=== PATIENT | male | born 1980 | race Caucasian/White ===

== ENCOUNTER → 2018-12-27 | Outpatient (CLI) | payer OTHER, SELFPAY ==
[2016-03-13 07:31] VITALS: BMI 28.5
--- NOTE | 2018-12-27 14:50 | RAD_ITS ---
STUDY: X-RAY - RIGHT HAND, ATTENTION INDEX FINGER REASON FOR EXAM: Male, 38 years old. Crush injury. TECHNIQUE: 3 view(s) of the finger were obtained. COMPARISON: None. FINDINGS: Normal metacarpal head. Normal metacarpophalangeal joint. Normal proximal phalanx. Normal middle phalanx. Normal distal phalanx. Normal proximal interphalangeal joint. Normal distal interphalangeal joint. Soft tissue injury. RAD/Finger(s) Min 2 Views IMPRESSION: Soft tissue injury. Electronically Signed: Yoshi Baez, at 15:20 EDT , Service support ,
== END | disposition home or self-care (01) ==
LOC: HPRAD 14:48
PROVIDERS: Referring Provider Physician Assistant; Visit Provider Physician Assistant
DX: S69.91XA Unspecified injury of right wrist, hand and finger(s), initial encounter (principal)
CPT/HCPCS: 73140

== ENCOUNTER → 2020-02-03 | Outpatient (CLI) | payer OTHER, SELFPAY ==
--- NOTE | 2020-02-03 06:45 | MRI_ITS ---
STUDY: MRI RIGHT ANKLE WITHOUT CONTRAST REASON FOR EXAM: Male, 39 years old. RIGHT ankle sprain, injury. Pain of entire RIGHT ankle abdi. anterior to medial TECHNIQUE: Standardized fat and water weighted pulse sequences were obtained in all 3 orthogonal planes. COMPARISON: None. FINDINGS: Normal subcutis adipose space. Normal posterior tibialis tendon. Nondisplaced fracture of the medial aspect of the navicular bone at the insertion of the posterior tibialis tendon with surrounding contusion. Normal flexor digitorum longus tendon. Normal flexor hallucis longus tendon. Normal peroneus longus and brevis tendons. Normal tibialis anterior tendon. Normal extensor hallucis longus tendon. Normal extensor digitorum longus tendons. Normal Achilles tendon and teno-osseous insertion. Normal plantar fascia. Normal plantar calcaneal tubercles. Normal intrinsic muscles of the rearfoot. Normal distal tibiofibular syndesmotic ligamentous complex. There is a complete rupture of the anterior talofibular ligament (ATFL). Normal subtalar ligaments and sinus tarsi. Normal deltoid ligamentous complexes. Normal plantar calcaneonavicular (spring) ligament. Normal tibiotalar articulation. Normal talar dome. Normal subtalar articulations. Normal talonavicular articulation. Normal calcaneocuboid articulation. Normal navicular-cuneiform articulations. Mild contusions of the lateral malleolus the fibula, the posterior malleolus the tibia, the body of the talus in the anterior process of the calcaneus. MRI/Lower Ext Joint Only (Routine) IMPRESSION: 1. Tear of the anterior talofibular ligament. 2. Nondisplaced fracture and surrounding contusion of the medial aspect of the navicular bone at the insertion of the posterior tibialis tendon. 3. Mild contusions of the lateral malleolus the fibula, posterior malleolus the tibia, the body of the talus, in the anterior process of the calcaneus. Electronically Signed: Mati Mccall MD at 12:45 EDT Tel , Service support ,
== END | disposition home or self-care (01) ==
PROVIDERS: PCP Nurse Practitioner Family; Referring Provider Registered Nurse; Visit Provider Registered Nurse
DX: S93.491D Sprain of other ligament of right ankle, subsequent encounter (principal)
CPT/HCPCS: 73721

== ENCOUNTER → 2023-02-16 | Outpatient (CLI) | payer OTHER, SELFPAY ==
--- NOTE | 2023-02-16 07:36 | MRI_ITS ---
INDICATION: SOFT TISSUE MASS, BACK EXAMINATION: MRI - MR Chest WO/W Contrast TECHNIQUE: Multiplanar and multisequence MR images of the chest were obtained. IV Contrast Dosage and Agent: CLARISCAN 19ML IV COMPARISON: No relevant prior comparison study available FINDINGS: Deep to the left serratus muscle and medial to the trapezius along the left posterolateral chest wall there is a fat density mass with thin internal septations. This measures 8.8 x 3.7 x 12 cm. There is no associated enhancing component. There is no adjacent abnormality of the ribs. No bone marrow signal abnormality. The visualized lungs are grossly clear. Normal heart size. The visualized upper abdominal structures show no acute abnormality. Normal signal of the liver. Normal size spleen. No hydronephrosis. 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 There are thin septations without enhancing nodular component. Given the size of the lesion, consider continued surveillance if this is not intervened upon.. Electronically Signed: Anup Puckett MD at 1:00 EDT ,
[2023-02-16 08:02] LABS: CREATININE FINGERSTICK < 0.9 mg/dL (0.70-1.30); EGFR FINGERSTICK > 60.0000 mL/min (>60)
== END | disposition home or self-care (01) ==
PROVIDERS: PCP Nurse Practitioner Family; Referring Provider Family Medicine; Visit Provider Family Medicine
DX: R22.2 Localized swelling, mass and lump, trunk (principal)
CPT/HCPCS: 71552; A9575

== ENCOUNTER 2025-03-10 06:13 | Day surgery (SDC) | payer BC, SELFPAY ==
[2025-03-10] VITALS (8 sets, daily range): BP systolic 89–148; BP diastolic 64–83; PULSE 53–63; RESP 14–16; TEMP 36.1–36.2; O2SAT 96–98; BMI 27.3
--- OUTSIDE RECORDS SUMMARY | 2025-03-10 06:17 | XMS RPT_ITS | CCD ---
Author Organization [facility] Care Team Providers Care Dental Appliance Mechanic Name Role Phone Jordan HARDWOOD FLOOR INSTALLATION HELPER.WEATHERIZATION AND HOUSING INSPECTOR, Ajay PERSAUD Primary Care Provider Caty Vanegas MD Primary Care Provider CATY VANEGAS Primary Care Unavailab AJAY Chisholm Referring Unavailable AJAY DAMON Attending Unavailable AJAY DAMON Admitting Unavailable CATY VANEGAS Primary Care UnavailCaty Willson MD Primary Care Provider Podlogar HARDWOOD FLOOR INSTALLATION HELPER.Arline ESQUIVEL Unavailable Knoble HARDWOOD FLOOR INSTALLATION HELPER.Shari ESQUIVEL Unavailable PODLOGAR, ARLINE Attending Unavailable CATY VANEGAS Primary Care Unavailab VirkLOGARLINE JACOBSON Referring Unavailable CATY VANEGAS Primary Care Unavailab jorden PALACIOSLOGARLINE JACOBSON Attending Unavailable CATY VANEGAS Primary Care Unavailab Yu Mcgarry Attending Unavailable Ajay Ortega NP Referring Unavailable Damián Olsen Primary Care Unavaila ble Ajay Ortega NP Referring Unavailable Ajay Ortega NP Primary Care Unavailable Yu Wong Attending Unavailable Kimo Mathews Attending Unavailable Damián Vanegas Primary Care Unavailable Yu Wong Attending Unavailable Damián Vanegas Primary Care Unavailable Yu Wong Referring Unavailable Allergies Allergy Classification Reported Allergen(s) Allergy Type Date of Onset Reaction(s) Facility (20 sources) gadoterate meglumine; Translations: [GADOTERATE MEGLUMINE] Drug Allergy 5 [facility] (4 sources) Penicillins Propensity to adverse reactions 8 [facility] Work Phone: (1 source) Penicillins Allergy to substance 9 Unknown [facility] (1 source) Triiodobenzoic Acids Allergy to substance 9 Other [facility] (1 source) Penicillins Drug allergy (disorder) 5 [facility] Repository (1 source) Iodinated Contrast Media Drug allergy (disorder) 5 [facility] Repository Medications Current Medications Medication Drug Class(es) Dates Sig (Normalized) Sig (Original) azithromycin 250 mg oral tablet (3 sources) Macrolide Antimicrobial Start: 11-06-2023 End: 11-11-2023 take 2 tablets by mouth once daily, then take 1 tablet by mouth once daily azithromycin (ZITHROMAX) 250 mg tablet Indications: Bacterial pneumonia Take 2 tablets by mouth once daily for 1 day, THEN 1 tablet once daily for 4 days. 6 tablet 0 11/06/2023 11/11/2023 Active Start: 03-13-2016 take 250 mg by mouth once daily Azithromycin Active 250 MG PO DAILY March 13, 2016 1:00am iv contrast (will be provided with radiology test) (1 source) Start: 02-13-2023 End: 02-14-2023 iv contrast (will be provided with radiology test) Indications: Mass on back , Localized swelling, mass and lump, trunk MRI chest wall Lt Inj, intravenously, once for 1 dose. No IV access, insert saline lock prior to the beginning of sedation, infusion, injection of imaging exam. Discontinue saline lock post exam. If Pt. has a central line or IVAD, may access for administration according to line specific nursing protocol. Once exam is complete flush line and de-access according to line specific nursing protocol in the MR contrast administration guidelines link. 1 Each 0 02/13/2023 02/14/2023 Active Comment on above: MRI chest wall Lt In j, intravenously, once for 1 dose. No IV access, insert saline lock prior to the beginning of sedation, infusion, injection of imaging exam. Discontinue saline lock post exam. If Pt. has a central line or IVAD, may access for administration according to line specific nursing protocol. Once exam is complete flush line and de-access according to line specific nursing protocol in the MR contrast administration guidelines link. Completed/Discontinued Medications Medication Drug Class(es) Dates Sig (Normalized) Sig (Original) amoxicillin 50 mg/ml oral suspension (1 source) Penicillin-class Antibacterial Start: 05-21-2022 End: 05-21-2022 amoxicillin 250 mg oral liquid (AMOXIL) Start: 05-21-2022 End: 05-21-2022 amoxicillin 250 mg oral liqu id (AMOXIL) atorvastatin 80 mg oral tablet (8 sources) HMG-CoA Reductase Inhibitor Start: 03-23-2022 End: 04-27-2023 take 1 tablet by mouth once daily at bedtime for hyperlipidemia atorvastatin (LIPITOR) 80 mg tablet Take 1 tablet by mouth daily at bedtime. For cholesterol. 90 tablet 1 03/23/2022 04/27/2023 Discontinued (Course of therapy completed) Comment on above: Take 1 tablet by sury th daily at bedtime. For cholesterol. cyclobenzaprine hydrochloride 10 mg oral tablet (1 source) Muscle Relaxant Start: 04-17-2023 End: 04-27-2023 take 1 tablet by mouth three times daily as needed for muscle spasms cyclobenzaprine (FLEXERIL) 10 mg tablet Indications: Acute midline low back pain with left-sided sciatica Take 1 tablet by mouth three times a day as needed for muscle spasm. 30 tablet 04/17/2023 04/27/2023 Discontinued (Course of therapy completed) diphenhydrAMINE hydrochloride 50 mg oral tablet (5 sources) Histamine-1 Receptor Antagonist Start: 02-13-2023 End: 04-27-2023 take 1 tablet by mouth every hour diphenhydrAMINE HCL 50 mg tablet Indications: Contrast media allergy Take 50 mg oral 1 hour prior to contrast administration. 1 tablet 02/13/2023 04/27/2023 Discontinued (Course of therapy completed) Comment on above: Take 50 mg oral 1 ho ur prior to contrast administration. finasteride 1 mg oral tablet (8 sources) 5-alpha Reductase Inhibitor Start: 03-15-2022 End: 04-17-2023 take 1 tablet by mouth once daily finasteride (PROPECIA,PROSCAR) 1 mg tablet Take 1 tablet by mouth once daily. 03/15/2022 04/17/2023 Discontinued Comment on above: Take 1 tablet by sury th once daily. hydroCHLOROthiazide 25 mg / lisinopril 20 mg oral tablet (20 sources) Thiazide Diuretic, Angiotensin Converting Enzyme Inhibitor Start: 03-14-2022 End: 02-19-2025 take 1 tablet by mouth once daily in the morning lisinopril-hydroCH LOROthiazide (ZESTORETIC) 20-25 mg per tablet Indications: Essential hypertension Take 1 tablet by mouth every morning. 90 tablet 11/07/2024 11/21/2024 Discontinued Start: 01-22-2021 End: 01-22-2022 take 1 tablet by mouth once daily in the morning lisinopril-hydroCHLOROthiazide (PRINZIDE , ZESTORETIC) 20-25 mg per tablet Indications: Essential hypertension Take 1 tablet by mouth every morning. 90 tablet 3 01/22/2021 01/22/2022 Active Comment on above: Take 1 tablet by sury th every morning. minoxidil oral liquid 1 mg/mL (CPD) (8 sources) Start: 03-15-2022 End: 04-17-2023 take 5 mL by mouth once daily minoxidil oral liquid 1 mg/mL (CPD) Take 5 mL by mouth once daily. 03/15/2022 04/17/2023 Discontinued Start: 03-15-2022 take 5 mL by mouth once daily minoxidil oral liquid 1 mg/mL (CPD) Take 5 mL by mouth once daily. 0 03/15/2022 Active Comment on above: Take 5 mL by mouth o nce daily. predniSONE 10 mg oral tablet (6 sources) Start: 04-17-2023 End: 04-22-2023 predniSONE (DELTASONE) 10 mg tablet Indications: Acute midline low back pain with left-sided sciatica Take 4 tabs daily for 3 days, then 2 tabs daily for 3 days, then 1 tab daily for 3 days with food. 21 tablet 04/17/2023 04/22/2023 Discontinued Start: 02-13-2023 End: 04-17-2023 predniSONE (DELTASONE) 50 mg Indications: Contrast media allergy Take 50 mg at 13, 7, and 1 hour prior to contrast administration. 3 tablet 02/13/2023 04/17/2023 Discontinued Start: 12-15-2021 End: 12-20-2021 take 2 tablets by mouth once daily predniSONE (DELTASONE) 20 mg tablet Take 2 tablets by mouth once daily for 5 days. 10 tablet 0 12/15/2021 12/20/2021 Active Comment on above: Take 2 tablets by [facility] once daily for 5 days. Take 50 mg at 13, 7, and 1 hour prior to contrast administration. Problems Active Problems Problem Classification Problem Date Documented Da te Episodic/Chronic Abdominal pain (3 sources) Left lower quadrant pain; Translations: [LLQ pain] Onset: 01-09-2025 Episodic Allergic reactions (3 sources) Allergy to penicillin; Translations: [Allergy status to penicillin] Episodic Complications of surgical procedures or medical care (1 source) Non dose-related adverse reaction to medication; Translations: [Unspecified adverse effect of drug or medicament, initial encounter] Episodic Disorders of lipid metabolism (20 sources) Dyslipidemia; Translations: [Hyperlipidemia, unspecified] Onset: 04-08-2017 Resolved: 03-15-2022 04-08-2017 Chronic Essential hypertension (20 sources) Essential hypertension; Translations: [Essential (primary) hypertension] Onset: 01-11-2008 Resolved: 12-29-2014 01-22-2021 Chronic Immunizations and screening for infectious disease (2 sources) Needs influenza immunization; Translations: [Encounter for immunization] Episodic Other and unspecified benign neoplasm (1 source) Lipoma (clinical); Translations: [Benign lipomatous neoplasm, unspecified] 03-06-2023 Episodic Other and unspecified benign neoplasm (1 source) Benign lipomatous neoplasm, unspecified; 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] Onset: 05-20-2023 Episodic Other lower respiratory disease (2 sources) Cough; Translations: [Acute cough] 11-06-2023 Episodic Other screening for suspected conditions (not mental disorders or infectious disease) (1 source) Encounter for screening for malignant neoplasm of colon; Translations: [Screening for colon cancer] Onset: 01-09-2025 Episodic Other skin disorders (1 source) Mass of back; Translations: [Localized swelling, mass and lump, trunk] 02-13-2023 Episodic Other skin disorders (1 source) Finding of trunk structure; Translations: [Localized swelling, mass and lump, trunk] 02-13-2023 Episodic Other upper respiratory infections (1 source) Sore throat symptom; Translations: [Acute pharyngitis, unspecified] Episodic Otitis media and related conditions (1 source) Dysfunction of left eustachian tube; Translations: [Unspecified Eustachian tube disorder, left ear] 01-06-2024 Episodic Pneumonia (except that caused by tuberculosis or sexually transmitted disease) (1 source) Bacterial pneumonia; Translations: [Unspecified bacterial pneumonia] 11-06-2023 Episodic Superficial injury; contusion (2 sources) Abrasion of right index finger; Translations: [Abrasion of right index finger, initial encounter] 12-27-2018 Episodic Past or Other Problems Problem Classification Problem Date Documented Da te Episodic/Chronic Contraceptive and procreative management (17 sources) Patient encounter status; Translations: [Encounter for fertility testing] Onset: 06-21-2009 Resolved: 12-29-2014 12-29-2014 Episodic Other and unspecified benign neoplasm (20 sources) Melanocytic nevus of skin ; Translations: [Melanocytic nevi, unspecified] Onset: 03-15-2022 Episodic Other nutritional; endocrine; and metabolic disorders (20 sources) Body mass index 25-29 - overweight; Translations: [Overweight] Onset: 03-15-2022 Episodic Other skin disorders (20 sources) Epidermoid cyst; Translations: [Epidermal cyst] Onset: 01-25-2015 01-25-2015 Episodic Other skin disorders (20 sources) Loss of hair; Translations: [Nonscarring hair loss, unspecified] Onset: 03-15-2022 Episodic Other skin disorders (17 sources) Mass of foot; Translations: [Localized swelling, mass and lump, unspecified lower limb] Onset: 12-29-2014 Resolved: 01-25-2015 01-25-2015 Episodic Spondylosis; intervertebral disc disorders; other back problems (17 sources) Acute low back pain; Translations: [Acute midline low back pain] Onset: 04-27-2023 04-27-2023 Episodic Results Test Name Value Interpretation Reference Range Facility [facility] 02-14-2025 [facility] Telephone (FAMChristopherWS) GLENN LINK ([id number]) 1980 M Date Time Provider Department 02/14/25 ARLINE JAY During your visit today, we recorded the following information about you: Arline Jay APRN.SIERRA 02/14/2025 12:00 PM Signed Please fax office note from 01/09/2025 to [phone]. Please put on fax header this is for request to review denial for gastroenterology consult. His reference number is [id number]- they ask this be placed on the request as well. Arline Jay APRN.PATITO HOFFMANN 02/14/2025 1:34 PM Signed Information faxed at this time as requested. Patito Serna LPN Allergies As of Date: 02/14/2025 Noted Allergy Reaction DOTAREM (GADOTERATE MEGLUMINE) 12/15/2014 4 - Hives Comments: Mri contrast Date Reviewed: 01/09/2025 Reviewed by: Radha Walker LPN - Fully Assessed Reason for Visit: consult denial [Other] Cmt: Gastroenterology review Prescriptions as of 02/20/2025 - lisinopril-hydroCHLOR Othiazide (ZESTORETIC) 20-25 mg per tablet Take 1 tablet by mouth every morning. Problem List As Of Date 02/14/2025 Noted Resolved BENIGN HYPERTENSION [I10] 01/11/2008 12/29/2014 Fertility testing [Z31.41] 06/21/2009 12/29/2014 Foot mass [R22.40] 12/29/2014 01/25/2015 Epidermoid cyst [L72.0] 01/25/2015 Well adult exam [Z00.00] 04/08/2017 03/15/2022 Dyslipidemia [E78.5] 04/08/2017 03/15/2022 Essential hypertension [I10] Mixed hyperlipidemia [E78.2] 01/22/2021 Overweight (BMI 25.0-29.9) [E66.3] 03/15/2022 Numerous skin moles [D22.9] 03/15/2022 Hair loss [L65.9] 03/15/2022 Acute midline low back pain [M54.50] 04/27/2023 Encounter Status:Closed by CARRIE STRANGE on 02/20/25 [facility] 02-14-2025 Gastroenterology Visit Report [facility] [address] [place] [address] OFFICE VISIT Date of Service: 02/14/25 MR#: [id number] Acct: [id number] Name: GLENN LINK III Rep #: [id number] : 1980 Provider: VINICIO Mendoza Age/Sex: 44/M [place] [facility] [place]: S[place] Intake Vital Signs 12/27/18 15:28 Height 6 ft Intake Visit Reasons: abdomen pain Chief Complaint: Left lower quadrant pain Allergies Iodinated Contrast Media (DYEE) Allergy (Verified 02/14/25 14:05) Other Penicillins Allergy (Verified 02/14/25 14:05) Unknown Medications ???Medication ???Instructions ???Recorded ???Confirmed ???Type azithromycin 250 mg tablet 250 mg PO DAILY #4 TABLETS 6 Rx lisinopril 20 1 tab PO QDAY 02/14/25 02/14/25 Hi story mg-hydrochlorothiazid e 25 mg tablet PFSH Medical History Seasonal allergic conjunctivitis Mixed hyperlipidemia HTN (hypertension) LLQ abdominal pain Hair loss Family History Other Heart disease Social History Smoking Status: Former smoker quit date: 04/20/08 alcohol intake: current alcohol intake frequency: a few times a week Alcohol type: beer HPI HPI Chief Complaint: Left lower quadrant pain Details: GLENN LINK, is a 44 M who presents to the office today for establishment. Referred from primary care provider due to a dull burning left lower quadrant pain for 2 months. Pain is constant and will wake him up at night. Exacerbated by lifting his leg. It is not related to oral intake or when he needs to have a bowel movement. He denies any recent changes in his bowel habits. He has 1 bowel movement daily that is formed. Patient takes Metamucil daily. He denies blood in his stool or unintentional weight loss. No family history of colon cancer. No history of colonoscopy. He feels it may be musculoskeletal or a hernia. Ibuprofen and acetaminophen have helped in the past. ROS Const Constitutional: No fatigue, fever(s) or weight change ENT ENT: No difficulty swallowing Gastro GI: Positive for abdominal pain; No belching, bloating, change in bowel habits, change in stool character, coffee ground emesis, constipation, cramping, diarrhea, heartburn, difficulty swallowing, feeling full early, excessive flatus, incontinent of stools, Vomiting blood/hematemesis, Blood in stool, loose stools, Black,tarry stools, nausea/dyspepsia, pain with swallowing, vomiting or other Musc Musculoskeletal: No joint pain Skin Skin: No yellowing of the eye or itchy eyes Psych Psychiatric: No anxiety and No depression Endo Endocrine: No fatigue or weight change Aller/Imm Allergy/Immunologic: No itchy eyes Willem/Lymp Hematologic/Lymphatic : No easy bleeding or easy bruising Exam Const General: cooperative, healthy appearing and comfortable Nutritional Appearance: average body habitus Orientation: alert HENMT Head: normal to inspection Ears: hearing grossly normal bilaterally Eyes General: appearance normal, both eyes and all related structures Neck Neck: normal visual inspection Chest Chest palpation inspection: normal inspection of the chest GI Inspection: normal to inspection Auscultation: normal bowel sounds Palpation: soft and nontender Assessment and Plan Assessment and Plan (1) LLQ abdominal pain: Status: Acute Plan: José Antonio is a 44-year-old male patient with past medical history of hypertension and hyperlipidemia here today for evaluation of left lower quadrant abdominal pain over the past 2 months. Pain is unrelated to oral intake or bowel movements. Some alleviation in his symptoms with NSAIDs or acetaminophen. Sitting or certain movements may exacerbate his pain. He denies any changes in his bowel habits, unintentional weight loss, blood in his stool or fever. He has no family history of colon cancer. Patient will undergo colonoscopy for evaluation of his left lower quadrant pain and for screening. I have also ordered a CT abdomen pelvis to rule out inflammation in his colon and/or a hernia. - Colonoscopy - CT abdomen pelvis - Continue fiber - Follow-up after testing Note: [employer] speech recognition nail professional software was used to create portions of this document. Sound-alike and misspelled words, as well as other nail professional errors may be contained in the documentation. Orders: Orders Abdomen/Pelvis WITH Contrast Today R10.32 - Left lower quadrant pain Coding Level of Care Code Off vis,new,level 4 Diagnoses LLQ abdominal pain R10.32 02/14/25 1459 Date Yu George Signature: Date (more content not included)... [facility] (FAMPWS ) GLENN LINK ([id number]) 1980 M Date Time Provider Department 01/09/25 10:40 AM ARLINE JAY During your visit today, we recorded the following information about you: Temperature Pulse Blood pressure Weight 97.7 degrees 67/minute 128/86 90.9 kg Arline Jay APRN.WEATHERIZATION AND HOUSING INSPECTOR 02/14/2025 11:58 AM Addendum 01/09/2025 Patient presents with: Abdominal Pain: Left lower x few weeks Recording using [employer] software for draft documentation of the visit was discussed with the patient/authorized fulfillment representative; all questions welcomed and answered. Patient/authorized fulfillment representative agreed to proceed SUBJECTIVE: This is a 44 year old that is here today for Above Complaints. LLQ Abdominal Pain: - Andrei Link reports a dull, burning pain in the LLQ x3 weeks. - Initially thought to be muscular, but now uncertain. - Pain is constant and slowly worsening; wakes him up at night. - Aggravated by lifting the leg, causing a sensation of tightness. - Andrei denies relief from stretching. - Andrei denies known trauma or injury. - Andrei denies hematochezia, melena, nausea, emesis, fevers, or chills. - Andrei denies changes in bowel habits, constipation, diarrhea, or abnormal weight loss. - Andrei denies dysuria. - Andrei has not undergone a colonoscopy. PAST MEDICAL HISTORY Diagnosis Date Hair loss Hypertension Mixed hyperlipidemia 01/22/[address] Natalie Chicas Overweight (BMI 25.0-29.9) Seasonal allergies spring ALLERGIES Dotarem [Gadoterate Meglumine] MEDICATIONS Current Outpatient Medications Medication Sig lisinopril-hydroCHLOR Othiazide (ZESTORETIC) 20-25 mg per tablet Take 1 tablet by mouth every morning. No current facility-administered medications for this visit. Medications and allergies reviewed by this provider. SOCIAL HISTORY SOCIAL HISTORY[1] REVIEW OF SYSTEMS All other reviewed and negative other than HPI. OBJECTIVE: BP 128/86 Pulse 67 Temp 36.5 ?C (97.7 ?F) Wt 90.9 kg (200 lb 6.4 oz) SpO2 96% BMI 27.69 kg/m? . Vital signs reviewed by this provider. APPEARANCE Well appearing, alert, in no acute distress, well-hydrated, well nourished. EYES conjunctiva and sclera normal. HEART RRR with normal S1 and S2, no murmurs, no gallops, no JVD appreciated LUNG clear to auscultation. No wheezes, rhonchi or rales ABDOMEN bowel sounds normoactive, no bruits, soft, non-tender, non-distended, without organomegaly or palpable masses, no tenderness to palpation. No rebound tenderness or guarding SKIN Skin color, texture, turgor normal, no suspicious rashes or lesions to exposed skin to exposed skin Depression Screening Never done Anxiety Screening Never done Hepatitis B Vaccine(1 of 3 - 19+ 3-dose series) Never done HPV Vaccine(1 - 3-dose SCDM series) Never done Influenza Vaccine(1) due on 12/19/2024 Colorectal Cancer Screening due on 12/22/2024 Annual PCP Team Chronic Disease Visit due on 06/06/2025 Diabetes Screening due on 06/07/2027 Lipid Screening due on 06/07/2029 DTaP,Tdap,Td Vaccine(9 - Td or Tdap) due on 03/15/2032 Hepatitis C Screening Completed HIV Screening Discontinued 1. LLQ pain (R10.32) 2. Screening for colon cancer (Z12.11) - Persistent LLQ pain for 3 weeks without red flag symptoms; exam non-tender. - Differential includes muscular etiology, diverticulosis, or other GI pathology; less likely to be diverticulitis given absence of acute symptoms. - Discussed rationale for not pursuing CT at this time due to benign exam and lack of concerning features. - refer to GI as he is due for his screening colonoscopy and the fact he is having LLQ pain- he would not be a candidate for open access colonoscopy due to complaints of pain - Advised patient to seek emergent care if symptoms worsen or if fevers, chills, hematochezia, or melena develop. Arline Podlogar, HARDWOOD FLOOR INSTALLATION HELPER.WEATHERIZATION AND HOUSING INSPECTOR Prescription instructions reviewed with patient as applicable. Patient advised if symptoms do not improve or if symptoms worsen sooner, to contact their primary care physician. Potential red flag symptoms discussed with the patient. Reviewed appropriate action plan to take if red flag symptoms occur. Patient agreeable to treatment plan. [address]120 OVERALL COMPLEXITY Problem Complexity: Moderate Data Level: Straightforward Risk Level: Low Overall MDM complexity (2/3 must be met or exceeded): Low PROBLEMS SECTION: 1. LLQ pain - Undiagnosed new problem with uncertain prognosis 2. Screening for colon cancer - Not applicable One undiagnosed new problem with uncertain prognosis (Moderate complexity) Problem complexity level: Moderate DATA SECTION: - Review of prior external note(s) from each unique source: - Review of the result(s) of each unique test: - Ordering of each unique test: - Assessment requiring an independent (more content not included)... Normal [facility] CBC W Auto Differential pane l (Bld)on 06-07-2024 Basophils (Bld) [#/Vol] 0.03 10*3/uL Normal <0.11 [facility] Comment on above: Order Comment: Froilan posey Type: BLOOD SPECIMEN Ordering Facility: [facility] Address: [address] [place] [address] Performed By: #### 5 7021-8 #### [facility] CLIA [id number] [address] [place], [place] [id number] [address] [place] Basophils/100 WBC (Bld) 0.4 % Normal [facility] Comment on above: Order Comment: Froilan posey Type: BLOOD SPECIMEN Ordering Facility: [facility] Address: [address] [place] [address] Performed By: #### 5 7021-8 #### [facility] CLIA [id number] [address] [place] [address] [place] Differential cell count method Nom (Bld) Auto Normal [facility] Comment on above: Order Comment: Speci men Type: BLOOD SPECIMEN Ordering Facility: [facility] Address: [address] [place] [address] Performed By: #### 5 7021-8 #### [facility] CLIA [id number] [address] [place] [address] [place] Eosinophils (Bld) [#/Vol] 0.14 10*3/uL Normal <0.46 [facility] Comment on above: Order Comment: Speci men Type: BLOOD SPECIMEN Ordering Facility: [facility] Address: [address] [place] [address] Performed By: #### 5 [id number] #### [facility] CLIA [id number] [address] [place] [address] [place] Eosinophils/100 WBC (Bld) 1.9 % Normal [facility] Comment on above: Order Comment: Speci men Type: BLOOD SPECIMEN Ordering Facility: [facility] Address: [address] [place] [address] Performed By: #### 5 7021-8 #### [facility] CLIA [id number] [address] [place] [address] [place] Erythrocyte distribution width (RBC) [Ratio] 12.2 % Normal 11.5-15.0 [facility] Comment on above: Order Comment: Speci men Type: BLOOD SPECIMEN Ordering Facility: [facility] Address: [address] [place] [address] Performed By: #### 5 7021-8 #### [facility] CLIA [id number] [address] [place] [address] [place] Hematocrit (Bld) [Volume fraction] 43.5 % Normal 39.0-51.0 [facility] Comment on above: Order Comment: Speci men Type: BLOOD SPECIMEN Ordering Facility: [facility] Address: [address] [place] [address] Performed By: #### 5 7021-8 #### [facility] CLIA [id number] [address] [place] [address] [place] Hemoglobin (Bld) [Mass/Vol] 14.3 g/dL Normal 13.0-17.0 [facility] Comment on above: Order Comment: Speci men Type: BLOOD SPECIMEN Ordering Facility: [facility] Address: [address] [place] [address] Performed By: #### 5 7021-8 #### [facility] CLIA [id number] [address] [place] [address] [place] Immature granulocytes (Bld) [#/Vol] 10*3/uL Normal <0.10 [facility] Comment on above: Order Comment: Speci men Type: BLOOD SPECIMEN Ordering Facility: [facility] Address: [address] [place] [address] Performed By: #### 5 7021-8 #### [facility] CLIA [id number] [address] [place] [address] [place] Immature granulocytes/100 WBC (Bld) 0.1 % Normal [facility] Comment on above: Order Comment: Speci men Type: BLOOD SPECIMEN Ordering Facility: [facility] Address: [address] [place] [address] Performed By: #### 5 7021-8 #### [facility] CLIA [id number] [address] [place] [address] [place] Lymphocytes (Bld) [#/Vol] 2.63 10*3/uL Normal 1.00-4.00 [facility] Comment on above: Order Comment: Speci men Type: BLOOD SPECIMEN Ordering Facility: [facility] Address: [address] [place] [address] Performed By: #### 5 7021-8 #### [facility] CLIA [id number] [address] [place] [address] [place] Lymphocytes/100 WBC (Bld) 35.8 % Normal [facility] Comment on above: Order Comment: Speci men Type: BLOOD SPECIMEN Ordering Facility: [facility] Address: [address] [place] [address] Performed By: #### 5 7021-8 #### [facility] CLIA [id number] [address] [place] [address] [place] MCH (RBC) [Entitic mass] 29.6 pg Normal 26.0-34.0 [facility] Comment on above: Order Comment: Speci men Type: BLOOD SPECIMEN Ordering Facility: [facility] Address: [address] [place] [address] Performed By: #### 5 7021-8 #### [facility] CLIA [id number] [address] [place] [address] [place] MCHC (RBC) [Mass/Vol] 32.9 g/dL Normal 30.5-36.0 [facility] Comment on above: Order Comment: Speci men Type: BLOOD SPECIMEN Ordering Facility: [facility] Address: [address] [place] [address] Performed By: #### 5 7021-8 #### [facility] CLIA [id number] [address] [place] [address] [place] MCV (RBC) [Entitic vol] 90.1 fL Normal 80.0-100.0 [facility] Comment on above: Order Comment: Speci men Type: BLOOD SPECIMEN Ordering Facility: [facility] Address: [address] [place] [address] Performed By: #### 5 7021-8 #### [facility] CLIA [id number] [address] [place] [address] [place] Monocytes (Bld) [#/Vol] 0.53 10*3/uL Normal <0.87 [facility] Comment on above: Order Comment: Speci men Type: BLOOD SPECIMEN Ordering Facility: [facility] Address: [address] [place] [address] Performed By: #### 5 7021-8 #### [facility] CLIA [id number] [address] [place] [address] [place] Monocytes/100 WBC (Bld) 7.2 % Normal [facility] Comment on above: Order Comment: Speci men Type: BLOOD SPECIMEN Ordering Facility: [facility] Address: [address] [place] [address] Performed By: #### 5 7021-8 #### [facility] CLIA [id number] [address] [place] [address] [place] Neutrophils (Bld) [#/Vol] 4.01 10*3/uL Normal 1.45-7.50 [facility] Comment on above: Order Comment: Speci men Type: BLOOD SPECIMEN Ordering Facility: [facility] Address: [address] [place] [address] Performed By: #### 5 7021-8 #### [facility] CLIA [id number] [address] [place] [address] [place] Neutrophils/100 WBC (Bld) 54.6 % Normal [facility] Comment on above: Order Comment: Speci men Type: BLOOD SPECIMEN Ordering Facility: [facility] Address: [address] [place] [address] Performed By: #### 5 7021-8 #### [facility] CLIA [id number] [address] [place] [address] [place] Nucleated RBC (Bld) [#/Vol] 10*3/uL Normal <0.01 [facility] Comment on above: Order Comment: Speci men Type: BLOOD SPECIMEN Ordering Facility: [facility] Address: [address] [place] [address] Performed By: #### 5 7021-8 #### [facility] CLIA [id number] [address] [place] [address] [place] Nucleated RBC/100 WBC (Bld) [Ratio] 0.0 /100 WBC Normal [facility] Comment on above: Order Comment: Speci men Type: BLOOD SPECIMEN Ordering Facility: [facility] Address: [address] [place] [address] Performed By: #### 5 7021-8 #### [facility] CLIA [id number] [address] [place] [address] [place] Platelet mean volume (Bld) [Entitic vol] 11.1 fL Normal 9.0-12.7 [facility] Comment on above: Order Comment: Speci men Type: BLOOD SPECIMEN Ordering Facility: [facility] Address: [address] [place] [address] Performed By: #### 5 7021-8 #### [facility] CLIA [id number] [address] [place] [address] [place] Platelets (Bld) [#/Vol] 310 10*3/uL Normal 150-400 [facility] Comment on above: Order Comment: Speci men Type: BLOOD SPECIMEN Ordering Facility: [facility] Address: [address] [place] [address] Performed By: #### 5 7021-8 #### [facility] CLIA [id number] [address] [place] [address] [place] RBC (Bld) [#/Vol] 4.83 10*6/uL Normal 4.20-6.00 [facility] Comment on above: Order Comment: Speci men Type: BLOOD SPECIMEN Ordering Facility: [facility] Address: [address] [place] [address] Performed By: #### 5 7021-8 #### [facility] CLIA [id number] [address] [place] [address] [place] WBC (Bld) [#/Vol] 7.35 10*3/uL Normal 3.70-11.00 [facility] Comment on above: Order Comment: Speci men Type: BLOOD SPECIMEN Ordering Facility: [facility] Address: [address] [place] [address] Performed By: #### 5 7021-8 #### [facility] CLIA [id number] [address] [place] [address] [place] Comprehensive metabolic 2000 panelon 06-07-2024 Albumin [Mass/Vol] 4.3 g/dL Normal 3.9-4.9 [facility] Comment on above: Order Comment: Speci men Type: BLOOD SPECIMEN Ordering Facility: [facility] Address: [address] [place] [address] Performed By: #### 2 4323-8, 08477-6 #### [facility] CLIA [id number] [address] [place] [address] [place] ALP [Catalytic activity/Vol] 55 U/L Normal 38-113 [facility] Comment on above: Order Comment: Speci men Type: BLOOD SPECIMEN Ordering Facility: [facility] Address: [address] [place] [address] Performed By: #### 2 4323-8, 26099-0 #### [facility] CLIA [id number] [address] [place] [address] [place] ALT [Catalytic activity/Vol] 18 U/L Normal 10-54 [facility] Comment on above: Order Comment: Speci men Type: BLOOD SPECIMEN Ordering Facility: [facility] Address: [address] [place] [address] Performed By: #### 2 4323-8, 77254-8 #### [facility] CLIA [id number] [address] [place] [address] [place] Anion gap [Moles/Vol] 11 mmol/L Normal 8-15 [facility] Comment on above: Order Comment: Speci men Type: BLOOD SPECIMEN Ordering Facility: [facility] Address: [address] [id number] Performed By: #### 2 4323-8, 33466-9 #### [facility] CLIA [id number] [address] [place] [address] [place] AST [Catalytic activity/Vol] 30 U/L Normal 14-40 [facility] Comment on above: Order Comment: Speci men Type: BLOOD SPECIMEN Ordering Facility: [facility] Address: [address] [place] [address] Performed By: #### 2 4323-8, 67275-6 #### [facility] CLIA [id number] [address] [place] [address] [place] Bilirubin [Mass/Vol] 0.3 mg/dL Normal 0.2-1.3 [facility] Comment on above: Order Comment: Speci men Type: BLOOD SPECIMEN Ordering Facility: [facility] Address: [address] [place] [address] Performed By: #### 2 4323-8, 28413-1 #### [facility] CLIA [id number] [address] [place] [address] [place] Calcium [Mass/Vol] 9.4 mg/dL Normal 8.5-10.2 [facility] Comment on above: Order Comment: Speci men Type: BLOOD SPECIMEN Ordering Facility: [facility] Address: [address] [place] [address] Performed By: #### 2 4323-8, 99172-7 #### [facility] CLIA [id number] [address] [place] [address] [place] Chloride [Moles/Vol] 102 mmol/L Normal 98-107 [facility] Comment on above: Order Comment: Speci men Type: BLOOD SPECIMEN Ordering Facility: [facility] Address: [address] [place] [address] Performed By: #### 2 4323-8, 59909-3 #### [facility] CLIA [id number] [address] [place] [address] [place] CO2 [Moles/Vol] 27 mmol/L Normal 22-30 [facility] Comment on above: Order Comment: Speci men Type: BLOOD SPECIMEN Ordering Facility: [facility] Address: [address] [place] [address] Performed By: #### 2 4323-8, 87942-6 #### [facility] CLIA [id number] [address] [place] [address] [place] Creatinine [Mass/Vol] 0.94 mg/dL Normal 0.73-1.22 [facility] Comment on above: Order Comment: Speci men Type: BLOOD SPECIMEN Ordering Facility: [facility] Address: [address] [place] [address] Performed By: #### 2 4323-8, 87105-0 #### [facility] CLIA [id number] [address] [place] [address] [place] Creatinine and Glomerular filtration rate.predicted panel (S/P/Bld) 103 mL/min/1.73m??? Normal >=60 [facility] Comment on above: Order Comment: Speci men Type: BLOOD SPECIMEN Ordering Facility: [facility] Address: [address] [place] [address] Result Comment: Charmaine mated Glomerular Filtration Rate (eGFR) is calculated using the 2020 CKD-EPI creatinine equation. This equation utilizes serum creatinine, sex, and age as parameters. The creatinine assay has traceable calibration to isotope dilution-mass spectrometry. Refer to KDIGO guidelines for clinical interpretation. In patients with unstable renal function, e.g. those with acute kidney injury, the eGFR may not accurately reflect actual GFR. Performed By: #### 2 4323-8, 31431-7 #### [facility] CLIA [id number] [address] [place] [address] [place] Glucose [Mass/Vol] 104 mg/dL High 74-99 [facility] Comment on above: Order Comment: Froilan posey Type: BLOOD SPECIMEN Ordering Facility: [facility] Address: [address] [place] [address] Result Comment: The [place] Diabetes Association (ADA) provides guidance for cutoff values for fasting glucose and random glucose. The ADA defines fasting as no caloric intake for at least 8 hours. Fasting plasma glucose results between 100 to 125 mg/dL indicate increased risk for diabetes (prediabetes). Fasting plasma glucose results greater than or equal to 126 mg/dL meet the criteria for diagnosis of diabetes. In the absence of unequivocal hyperglycemia, results should be confirmed by repeat testing. In a patient with classic symptoms of hyperglycemia or hyperglycemic crisis, random plasma glucose results greater than or equal to 200 mg/dL meet the criteria for diagnosis of diabetes. Reference: Standards of Medical Care in Diabetes 2016, [place] Diabetes Association. Diabetes Care. 2016.39(Suppl 1). Performed By: #### 2 4323-8, 24523-9 #### [facility] CLIA [id number] [address] [place] [address] [place] Potassium [Moles/Vol] 4.1 mmol/L Normal 3.7-5.1 [facility] Comment on above: Order Comment: Froilan posey Type: BLOOD SPECIMEN Ordering Facility: [facility] Address: [address] [place] [address] Performed By: #### 2 4323-8, 03347-6 #### [facility] CLIA [id number] [address] [place] [address] [place] Protein [Mass/Vol] 6.7 g/dL Normal 6.3-8.0 [facility] Comment on above: Order Comment: Froilan posey Type: BLOOD SPECIMEN Ordering Facility: [facility] Address: [address] [place] [address] Performed By: #### 2 4323-8, 02409-4 #### [facility] CLIA [id number] [address] [place] [address] [place] Sodium [Moles/Vol] 140 mmol/L Normal 136-144 [facility] Comment on above: Order Comment: Speci men Type: BLOOD SPECIMEN Ordering Facility: [facility] Address: [address] [place] [address] Performed By: #### 2 4323-8, 75608-7 #### [facility] CLIA [id number] [address] [place] [address] [place] Urea nitrogen [Mass/Vol] 10 mg/dL Normal 9-24 [facility] Comment on above: Order Comment: Speci men Type: BLOOD SPECIMEN Ordering Facility: [facility] Address: [address] [place] [address] Performed By: #### 2 4323-8, 42265-6 #### [facility] CLIA [id number] [address] [place] [address] [place] Lipid 1996 panelon 5 Cholesterol [Mass/Vol] 223 mg/dL High <200 [facility] Comment on above: Order Comment: Speci men Type: BLOOD SPECIMEN Ordering Facility: [facility] Address: [address] [place] [address] Result Comment: <200 mg/dL, Desirable 200-239 mg/dL, Borderline high >239 mg/dL, High Performed By: #### 2 4323-8, 74970-3 #### [facility] CLIA [id number] [address] [place] [address] [place] Cholesterol in HDL [Mass/Vol] 38 mg/dL Low >39 [facility] Comment on above: Order Comment: Speci men Type: BLOOD SPECIMEN Ordering Facility: [facility] Address: [address] [place] [address] Result Comment: 40-5 9 mg/dL, Acceptable >59 mg/dL, High: Negative risk factor for coronary heart disease <40 mg/dL, Low: Positive risk factor for coronary heart disease Performed By: #### 2 4323-8, 76369-3 #### [facility] CLIA [id number] [address] [place], [place] [address] [address] [place] Cholesterol in LDL [Mass/Vol] 150 mg/dL High <100 [facility] Comment on above: Order Comment: Froilan posey Type: BLOOD SPECIMEN Ordering Facility: [facility] Address: [address] [place] [address] Result Comment: <100 mg/dL, Optimal 100-129 mg/dL, Near optimal/above optimal 130-159 mg/dL, Borderline high 160-189 mg/dL, High >189 mg/dL, Very high Secondary prevention optimal LDL Cholesterol levels are recommended to be < 70 mg/dL Performed By: #### 2 4323-8, 98259-2 #### [facility] CLIA [id number] [address] [place] [address] [place] Cholesterol in LDL/Cholesterol in HDL [Mass ratio] 3.95 {ratio} High <2.54 [facility] Comment on above: Order Comment: Froilan posey Type: BLOOD SPECIMEN Ordering Facility: [facility] Address: [address] [place] [address] Result Comment: Referlinda banerjee: 1. National Cholesterol Education Program ATP III Guideline At-A-Glance Quick Desk Reference: National Heart, Lung, and Blood Constable. National Institutes of Health. 2001: NIH Publication No. 01-3305. 2. An International Atherosclerosis Society position paper: global recommendations for the management of dyslipidemia: executive summary, Atherosclerosis. 2014: 232(2):410-413. Performed By: #### 2 4323-8, 97922-8 #### [facility] CLIA [id number] [address] [place] [address] [place] Cholesterol in VLDL [Mass/Vol] 35 mg/dL High <30 [facility] Comment on above: Order Comment: Froilan posey Type: BLOOD SPECIMEN Ordering Facility: [facility] Address: [address] [place] [address] Performed By: #### 2 4323-8, 48157-3 #### [facility] CLIA [id number] [address] [place] [address] [place] Cholesterol non HDL [Mass/Vol] 185 mg/dL High <130 [facility] Comment on above: Order Comment: Speci men Type: BLOOD SPECIMEN Ordering Facility: [facility] Address: [address] [place] [address] Result Comment: <130 mg/dL, Optimal 130-159 mg/dL, Near optimal/above optimal 160-189 mg/dL, Borderline high 190-219 mg/dL, High >219 mg/dL, Very high Secondary prevention optimal non HDL Cholesterol levels are recommended to be <100 mg/dL Performed By: #### 2 4323-8, 18470-6 #### [facility] CLIA [id number] [address] [place] [address] [place] Cholesterol.total/Kendra sterol in HDL [Mass ratio] 5.87 {ratio} High <5.10 [facility] Comment on above: Order Comment: Speci men Type: BLOOD SPECIMEN Ordering Facility: [facility] Address: [address] [place] [address] Performed By: #### 2 4323-8, 84161-0 #### [facility] CLIA [id number] [address] [place] [address] [place] FASTING TIME 12 hrs Normal [facility] Comment on above: Order Comment: Speci men Type: BLOOD SPECIMEN Ordering Facility: [facility] Address: [address] [place] [address] Performed By: #### 2 4323-8, 43480-4 #### [facility] CLIA [id number] [address] [place] [address] [place] Triglyceride [Mass/Vol] 175 mg/dL High <150 [facility] Comment on above: Order Comment: Speci men Type: BLOOD SPECIMEN Ordering Facility: [facility] Address: [address] [place] [address] Result Comment: <150 mg/dL, Normal 150-199 mg/dL, Borderline high 200-499 mg/dL, High >499 mg/dL, Very high Performed By: #### 2 4323-8, 57478-3 #### [facility] CLIA [id number] [address] [place] [address] [place] CNOVon 06-06-2024 CNOV Office Visit (FAMPWS ) GLENN LINK ([id number]) 1980 M Date Time Provider Department 06/06/24 11:40 AM ARLINE JAY During your visit today, we recorded the following information about you: Pulse Respiration Blood pressure Weight 78/minute 16/minute 136/84 93.3 kg Height 1.812 m Arline Jay 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 HTN: Patient is compliant with meds Yes Monitors bp at home: No. Denies side effects: Yes. Chest pain: No. Dyspnea: No. Edema: No. Palpitations: No. Syncope: No. Headache: No. Dizziness: No. PAST MEDICAL HISTORY Diagnosis Date Hair loss Hypertension Mixed hyperlipidemia 01/22/[address] Natalie Chicas Overweight (BMI 25.0-29.9) Seasonal allergies spring ALLERGIES Dotarem [Gadoterate Meglumine] MEDICATIONS Current Outpatient Medications Medication Sig lisinopril-hydroCHLOR Othiazide (ZESTORETIC) 20-25 mg per tablet Take 1 tablet by mouth every morning. No current facility-administered medications for this visit. Medications and allergies reviewed by this provider. SOCIAL HISTORY Social History Tobacco Use Smoking status: Former Current packs/day: 0.00 Average packs/day: 1.5 packs/day for 8.0 years (12.0 ttl pk-yrs) Types: Cigarettes Start date: 04/20/2000 Quit date: 04/20/2008 Years since quittin.1 Smokeless tobacco: Former Types: Chew Quit date: 12/06/2007 Vaping Use Vaping status: Never Used Substance Use Topics Alcohol use: Yes Alcohol/week: 3.0 - 5.0 standard drinks of alcohol Types: 3 - 5 Cans of Beer (12oz) per week Comment: occasionally - 0-5 drinks a week Drug use: No REVIEW OF SYSTEMS GENERAL: No weight loss, malaise or fevers HEENT: Negative for frequent or significant headaches, No changes in hearing or vision, no nose bleeds or other nasal problems NECK: Negative for lumps, goiter, pain and significant neck swelling RESPIRATORY: Negative for cough, hemoptysis, wheezing, COPD, dyspnea or shortness of breath CARDIOVASCULAR: Negative for chest pain, leg swelling, hypertension, CHF or palpitations GI: No nausea, vomiting, or diarrhea : No history of dysuria, frequency or incontinence MUSCULOSKELETAL: Negative for joint pain or swelling, back pain or muscle pain SKIN: Negative for lesions, rash, and itching PSYCH: Negative for sleep disturbance, mood disorder and recent psychosocial stressors HEMATOLOGY/LYMPHOLOGY : Negative for prolonged bleeding, bruising easily or swollen nodes ENDOCRINE: Negative for cold or heat intolerance, polyuria, polydipsia and goiter NEURO: No history of headaches, syncope, paralysis, seizures or tremors All other reviewed and negative other than HPI. OBJECTIVE: BP 136/84 Pulse 78 Resp 16 Ht 181.2 cm (5' 11.34) Wt 93.3 kg (205 lb 11 oz) SpO2 98% BMI 28.42 kg/m? . Vital signs reviewed by this provider. APPEARANCE Well appearing, alert, in no acute distress, well-hydrated, well nourished. EYES PERRLA, conjunctiva and sclera normal. EARS External ears normal, canals clear NECK Supple, no adenopathy; thyroid symmetric, normal size, no bruits HEART RRR with normal S1 and S2, no murmurs, no gallops, no JVD appreciated LUNG clear to auscultation. No wheezes, rhonchi or rales EXTREMITIES Extremities normal, No deformities, No skin discoloration, and No edema SKIN Skin color, texture, turgor normal, no suspicious rashes or lesions to exposed skin Latest Ref Rng 12/07/2023 Protein, Total 6.3 - 8.0 g/dL 7.2 Albumin 3.9 - 4.9 g/dL 4.7 Calcium 8.5 - 10.2 mg/dL 9.7 Bilirubin, Total 0.2 - 1.3 mg/dL 0.4 Alkaline Phosphatase 38 - 113 U/L 49 AST 14 - 40 U/L 33 ALT 10 - 54 U/L 16 Glucose 74 - 99 mg/dL 117 (H) BUN 9 - 24 mg/dL 18 Creatinine 0.73 - 1.22 mg/dL 0.85 Sodium 136 - 144 mmol/L 136 Potassium 3.7 - 5.1 mmol/L 4.3 Chloride 98 - 107 mmol/L 99 CO2 22 - 30 mmol/L 24 Anion Gap 8 - 15 mmol/L 13 eGFR >=60 mL/min/1.73m? 111 Latest Ref Rng 05/12/2023 WBC 3.70 - 11.00 k/uL 7.61 RBC 4.20 - 6.00 m/uL 4.68 Hemoglobin 13.0 - 17.0 g/dL 14.8 Hematocrit 39.0 - 51.0 % 43.4 MCV 80.0 - 100.0 fL 92.7 MCH 26.0 - 34.0 pg 31.6 MCHC 30.5 - 36.0 g/dL 34.1 RDW-CV 11.5 - 15.0 % 12.7 Platelet Count 150 - 400 k/uL 289 MPV 9.0 - 12.7 fL 11.4 Absolute nRBC <0.01 k/uL <0.01 Latest Ref Rng 03/20/2022 Cholesterol, Total <200 mg/dL 288 (H) Triglyceride <150 mg/dL 182 (H) HDL Cholesterol >39 mg/dL 39 (L) Non HDL Cholesterol <130 mg/dL 249 (H) Fasting Time hrs 13 VLDL Cholesterol <30 mg/dL 36 (H) TC:HDL Ratio <5.10 7.38 (H) LDL Cholesterol <100 mg/dL 213 (H) LDL:HDL Ratio <2.54 5.46 (H) Anxiety Screening Never done Hepatitis B Vaccine(1 of 3 - 19+ 3-dose series) Never done BP C (more content not included)... Normal [facility] CNCOon 02-29-2024 CNCO Letter Text Normal [facility] XR Chest PA and Lateralon IMPRESSION: Focal right middle lobe pneumonia. Follow-up to document resolution recommended Supervisor Stripping: BISI Transcribe Date/Time: Nov 06 2023 2:45P Dictated by : MARELY BALL MD This examination was interpreted and the report reviewed and electronically signed by: MARELY BALL MD on Nov 06 2023 2:45PM [facility] DIVISION OF RADIOLOGY * * *Final Report* * * DATE OF EXAM: Nov 06 2023 2:42PM WOX 5291 - XR CHEST 2V FRONTAL/LAT / PROCEDURE REASON: Acute cough * * * * Physician Interpretation * * * * EXAMINATION: CHEST RADIOGRAPH (2 VIEW FRONTAL & LATERAL) CLINICAL HISTORY: Acute cough MQ: XC2_6 EXAM DATE/TIME: 11/06/2023 2:42 PM COMPARISON: 04/01/2019 RESULT: Lines, tubes, and devices: None. Lungs and pleura: New right middle lobe airspace disease is consistent with focal pneumonia. No lung mass. No pleural effusion. No pneumothorax. Cardiomediastinal silhouette: Normal cardiomediastinal silhouette. Bones and soft tissues: Unremarkable. DIVISION OF RADIOLOGY Provider, [facility] - 11/06/2023 * * *Final Report* * * DATE OF EXAM: Nov 06 2023 2:42PM WOX 5291 - XR CHEST 2V FRONTAL/LAT / PROCEDURE REASON: Acute cough * * * * Physician Interpretation * * * * EXAMINATION: CHEST RADIOGRAPH (2 VIEW FRONTAL & LATERAL) CLINICAL HISTORY: Acute cough MQ: XC2_6 EXAM DATE/TIME: 11/06/2023 2:42 PM COMPARISON: 04/01/2019 RESULT: Lines, tubes, and devices: None. Lungs and pleura: New right middle lobe airspace disease is consistent with focal pneumonia. No lung mass. No pleural effusion. No pneumothorax. Cardiomediastinal silhouette: Normal cardiomediastinal silhouette. Bones and soft tissues: Unremarkable. IMPRESSION IMPRESSION: Focal right middle lobe pneumonia. Follow-up to document resolution recommended Supervisor Stripping: BISI Transcribe Date/Time: Nov 06 2023 2:45P Dictated by : MARELY BALL MD This examination was interpreted and the report reviewed and electronically signed by: MARELY BALL MD on Nov 06 2023 2:45PM EST [facility] Radiology Study observation (narrative) [facility] XR Chest PA and LateralOrder ed By: Ccf Provider on 11-06-2023 [facility] ANES POSTPROC EVALon 024 ANES POSTPROC EVAL HNO ID: [id number] Author: ELSY HOUSE MD Service: Anesthesiology Author Type: Anesthesiologist Type: Anesthesia Postprocedure Evaluation Filed: 05/20/2023 14:18 Note Text: POST ANESTHESIA EVALUATION NOTE : 1980 Procedure Summary Date: 05/20/23 Room / Location: AR OR / [facility] OR Anesthesia Start: 1215 Anesthesia Stop: 1339 Procedure: EXCISION SOFT TISSUE TUMOR SUBFASCIAL OF FLANK / > 5CM (Left: Flank) 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 Post Anesthesia Patient Status Patient Evaluation: PACU. PACU/ICU Patient Condition: stable. Anticipated Disposition: phase 2 then home. Neurological Status: aware and responsive. Pulmonary Status: breathing comfortably on room air Airway Control: returned to baseline unsupported. Cardiovascular Status: stable. Pain Management: clinically adequate - multimodal analgesia pain management approach Postoperative Hydration: acceptable. Intraoperative Events: no significant anesthesia events Post Operative Nausea/Vomiting Status: no significant post operative nausea or vomiting Recommendation: continue current plan of care. Anesthesia Observations No Documentation SIGNATURE: Elsy House MD PATIENT NAME: Glenn Link DATE: May 20, 2023 TIME: 2:18 PM CSN: [id number] [facility] ANES PRE-OPon 05-20-2023 ANES PRE-OP HNO ID: [id number] Author: ELSY HOUSE MD Service: Anesthesiology Author Type: Anesthesiologist Type: Anesthesia Preprocedure Evaluation Filed: 05/20/2023 11:20 Note Text: ANESTHESIOLOGY DAY OF SURGERY NOTE : 1980 Procedure Information Date/Time: 05/20/23 1216 Procedure: EXCISION SOFT TISSUE TUMOR SUBFASCIAL OF FLANK / > 5CM (Left: Flank) Location: ME OR04 / ME OR Surgeons: Ajay Damon MD Estimated body mass index is 28.94 kg/m? as calculated from the following: Height as of 04/29/23: 182.9 cm (6'). Weight as of 04/29/23: 96.8 kg (213 lb 6.4 oz). Most recent hematocrit and potassium results: Hematocrit 43.4 05/12/2023 Potassium 4.7 05/12/2023 Relevant Problems CARDIO (+) Essential hypertension I - PHYSICAL EVALUATION AIRWAY Patient intubated: No. Tracheostomy tube not present Mallampati: II. TM distance: >3 FB. Neck ROM: full ROM without neurological symptoms. Mouth opening: adequate. Short neck: no. Thick neck: no Adamson present: yes DENTAL Dental findings: teeth intact. Additional exam findings: yes. CARDIOVASCULAR Rhythm: regular Rate: normal PULMONARY Breath sounds clear to auscultation. II - ANESTHESIA PLAN ASA Score: 2 Anesthetic Plan: general Airway type: ETT The patient is not a current smoker. NPO Status: adequate Beta Yuliet Monitoring Plan Monitoring plan: Standard ASA. Post Procedure Analgesic Plan Postoperative analgesic plan: parenteral or oral opioids and multimodal analgesia. Informed Consent Anesthetic risks, benefits, alternatives, personnel and consent discussed: yes. Patient / Responsible Constitution Party agrees to proceed: yes Patient / Surrogate agrees to blood products: yes DNR status not reviewed with patient and/or family prior to surgery. Significant changes in the patient condition since the History and Physical, not otherwise documented in primary service progress note: no. Potential Anesthesia issues that may suggest increased risk of complications or contraindication to planned procedure: none. Vitals Value Taken Time BP 154/93 05/20/23 1053 Pulse 71 05/20/23 1053 Resp 14 05/20/23 1053 Temp 36.1 ?C (97 ?F) 05/20/23 1053 SpO2 99 % 05/20/23 1053 Facility-Administered Medications as of 05/20/2023 Medication Dose Route Frequency - lidocaine (PF) 10 mg/mL (1 %) 1-2 mg injection (XYLOCAINE) 0.1-0.2 mL INTRADERMAL PRN - lactated ringers iv infusion 5-30 mL/hr INTRAVENOUS CONTINUOUS - NaCl 0.9% iv flush bag 20 mL INTRAVENOUS PRN - ceFAZolin iv piggyback 2 g in D5W (iso-osmotic) 100 mL (ANCEF) 2 g INTRAVENOUS Pre-Op Once - [COMPLETED] acetaminophen 1,000 mg tab(s) (TYLENOL) 1,000 mg ORAL Pre-Op Once - [COMPLETED] promethazine 12.5 mg tab(s) (PHENERGAN) 12.5 mg ORAL Pre-Op Once Outpatient Medications as of 05/20/2023 Medication Sig - lisinopril-hydroCHLOR Othiazide (PRINZIDE, ZESTORETIC) 20-25 mg per tablet Take 1 tablet by mouth every morning. I have interviewed and examined the patient. I have reviewed the medical record and/or the pre-anesthesia evaluation, pertinent labs, and test results. This contains updated information obtained within 48 hours of Surgery/Procedure. SIGNATURE: Elsy House MD PATIENT NAME: Glenn Link DATE: May 20, 2023 TIME: 11:20 AM CSN: [id number] Normal [facility] FISH FOR MDM2on 05-20-2023 FISH FOR MDM2 Normal [facility] Comment on above: Order Comment: Speci men Type: TISSUE SPECIMEN Ordering Facility: [facility] Address: [address] [place] [address] Result Comment: FISH for MDM2 Amplification Laboratory Accession Number: [id number] Block/Part ID: A1 Case: [id number] Sample Type: FFPET Sample Description: SOFT TISSUE, LEFT FLANK, EXCISION Received Date: 05/28/2023 Number of nuclei scored: 40 RESULT: FISH was negative for amplification or rearrangement of the MDM2 gene. INTERPRETATION: A majority of tumor cells displayed at least 1 centromeric chromosome 12 signal and 1 MDM2 signal. There is no amplification of MDM2. The following results were observed: MDM2: 1.85 CEP12: 1.98 MDM2/CEP12 Ratio: 0.93 Chromosomal variation: Eusomic Nomenclature: nuc marjan(D12Z3,MDM2)x2[] METHODOLOGY: Interphase fluorescence in situ hybridization (FISH) was performed on formalin-fixed paraffin embedded tissue sections using probes specific to the MDM2 gene at 12q15 (LSI MDM2) and to the centromere of chromosome 12 (CEP 12) ([employer], [place], [place]). DISCLAIMER: This test was developed and its performance characteristics determined by the [facility]'s [facility] Pathology and Laboratory Medicine [place] ([facility]). It has not been cleared or approved by the FDA. -[facility] is regulated under CLIA as qualified to perform high- complexity testing. This test is used for clinical purposes. It should not be regarded as investigational or for research. Interpretation performed at [facility], [address] [place] [address]. CLIA Number: [id number] As reviewed by Megan Jorge MD Performed By: #### M DM2 #### [facility] CLIA [id number] [address] [place] [address] [place] [address] [place] OPERATIVE NOon 05-20-2023 OPERATIVE NO HNO ID: [id number] Author: AJAY DAMON MD Service: General Surgery Author Type: Physician Type: Operative Report Filed: 05/20/2023 13:36 Note Text: OPERATIVE/PROCEDURE REPORT LOG ID: [id number] SURGERY/PROCEDURE DATE: 05/20/2023 INCISION/PROCEDURE START TIME: 12:40 PM INCISION CLOSE/PROCEDURE END TIME:1:25 PM SURGEON(S)/PROCEDURAL IST(S) AND PHLEBOTOMIST SUPERVISOR/INSTRUCTOR(S): Surgeon(s) and Role: * Ajay Damon MD - Primary Physician Golf Teacher: Monica Serrano PA-C SURGERY/PROCEDURE(S): Excision of a 14 x 11 x 2 cm intramuscular lipoma of the latissimus dorsi muscle ANESTHESIA: General SURGERY/PROCEDURE DETAILS: Patient was brought into the operating room. Under excellent LMA anesthesia he was placed on the right lateral side on a beanbag properly padded. The left chest area and posterior back area was sterilely prepped and draped in the usual fashion. Exparel was injected. A 12 cm incision was made. This went down through the subcutaneous tissues and I dissected all the way down to the latissimus dorsi muscle I split the latissimus dorsi muscle and the longitudinal fibers and got down to the intramuscular lipoma. I was able to remove this in its entirety with the use of electrocautery when it came out it measured 14 x 11 x 2 cm and was completely intact. I irrigated out the wound that had good and stasis. I placed powdered Surgicel into the operative cavity. I brought the latissimus dorsi muscle together with interrupted sutures of 0 Vicryl. Subcu layer was brought together with interrupted sutures of 2-0 Vicryl. Deep dermal stitches of 3-0 Vicryl. Then a running stitch of 4-0 Monocryl on the skin Steri-Strips were applied sterile dressings were applied and the patient tolerated the procedure well. Monica Serrano PA-C was my wardrobe assistant. She assisted with retraction, visualization and performed skin closure. No additional surgeons or qualified residents were available. PRE-OP/PRE-PROCEDURE DIAGNOSIS: 14 cm intramuscular lipoma left latissimus dorsi muscle POST-OP/POST-PROCEDUR E DIAGNOSIS: Same as Preop ESTIMATED BLOOD LOSS: < 20 mls SPECIMENS: 14 x 11 x 2 cm intramuscular lipoma IMPLANTABLE DEVICES: NONE DRAINS: None COMPLICATIONS: None CLOSURE TECHNIQUE: Primary PARTICIPATION IN SURGERY/PROCEDURE: I/primary surgeon/proceduralist performed the procedure with assistance. SIGNATURE: Ajay Damon III, MD PATIENT NAME: Glenn Link DATE: May 20, 2023 TIME: 1:19 PM Normal [facility] SURGICAL PATHOLOGYon 024 CASE REPORT [facility] Comment on above: Order Comment: Speci men Type: TISSUE SPECIMEN Ordering Facility: [facility] Address: [address] [place] [address] Result Comment: Surg [facility] Pathology Report Case: [id number] Authorizing Provider: Ajay Damon MD Collected: 05/20/2023 12:42 PM Ordering Location: [facility] Surgery Received: 05/20/2023 02:37 PM Pathologist: Roberto Ugalde MD Specimen: LIPOMA, left flank Performed By: #### S #### [facility] CLIA [id number] [address] [place], [place] [address] [address] [place] CLINICAL HISTORY Normal [facility] Comment on above: Order Comment: Speci men Type: TISSUE SPECIMEN Ordering Facility: [facility] Address: [address] [place] [address] Result Comment: 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 Given the size and anatomic location, in order to fully exclude ALT/WDL, FISH analysis for MDM2 gene amplification was performed at the [facility] but is negative (see below molecular report). These findings support the diagnosis of lipoma. [facility] Comment on above: Order Comment: Froilan posey Type: TISSUE SPECIMEN Ordering Facility: [facility] Address: [address] [place] [address] Performed By: #### S #### [facility] CLIA [id number] [address] [place] [address] FINAL DIAGNOSIS [facility] Comment on above: Order Comment: Speci kalpesh Type: TISSUE SPECIMEN Ordering Facility: [facility] Address: [address] [place] [address] Result Comment: A. S oft tissue, left flank, excision: - Lipoma. (See comment) Performed By: #### S #### [facility] CLIA [id number] [address] [place] [address] FINAL PERFORMING LAB [facility] Comment on above: Order Comment: Froilan posey Type: TISSUE SPECIMEN Ordering Facility: [facility] Address: [address] [place] [address] Result Comment: Diag nostic interpretation performed at [facility], [address] [place] [address] CLIA# [id number] Harbor Engineer: Donnell Mauro M.D. Performed By: #### S #### [facility] CLIA [id number] [address] [place] [address] GROSS DESCRIPTION A. LIPOMA Normal [facility] Comment on above: Order Comment: Speci men Type: TISSUE SPECIMEN Ordering Facility: [facility] Address: [address] [place] [address] Result Comment: Rece ived in formalin, labeled as left flank lipoma is a single ovoid encapsulated yellow-campbell soft tissue that measures 12.0 x 10.0 x 2.8 cm. The cross-sections are pale yellow-campbell and homogenous. No hemorrhage or necrosis is identified. Train Braker sections are submitted in cassettes A1-A4. CG May 20, 2023 5:21 PM Gross examination performed at [facility], [address] [place] [address] CLIA# [id number] Performed By: #### S #### [facility] CLIA [id number] [address] [place] [address] OF [place]UNE HISTORY PHYSICALon HISTORY PHYSICAL HNO ID: [id number] Author: SHAHIDA HAYDEN PA-C Service: ? Author Type: Physician Golf Teacher Type: H&P Filed: 05/13/2023 06:30 Note Text: PREANESTHESIA CONSULT CLINIC TELEHEALTH VISIT Patient has been identified by name and date of : Yes This is a virtual visit using [employer] Zoom Video Visit. It required patient-provider interaction for the medical decision making as documented below. I have communicated my name and active licensure. The patient's identity and physical location were verified at the time of this visit. Either the patient or their legal fulfillment representative has been informed of the risks and benefits of and alternatives to treatment through a remote evaluation and consents to proceed with the evaluation remotely. Reason for contact: PACC visit Accompanied by: Self Scheduled Surgery: Procedure(s) (LRB): EXCISION SOFT TISSUE TUMOR SUBFASCIAL OF FLANK / > 5CM (Left) Impression/Recommenda tions ASSESSMENT: 1. Preoperative examination Scheduled for surgery 05/20/2023 - CBC; Future - BASIC METABOLIC PNL; Future 2. Essential hypertension Compliant on daily lisinopril-HCTZ - CBC; Future - BASIC METABOLIC PNL; Future 3. Former smoker Quit 2008 (1.5 ppd x 8 years). 4. Overweight (BMI 25.0-29.9) Body mass index is 29.16 kg/m?. 5. Upper respiratory tract infection, unspecified type Symptoms started ~04/22/23 with nasal congestion and dry cough, headache. No fevers or body aches. Feels much improved over the weekend, however still with some symptoms. Advised patient to notify me via [employer] message once symptoms are completely resolved. 05/13/2023 - Received [employer] Message that patient's URI symptoms all completely resolved by 05/11/23 6. Acute midline low back pain, unspecified whether sciatica present Had evaluation 04/17/23. Patient started prednisone taper 04/22/23, for 9 days. Symptoms improving. ANESTHESIA FINDINGS: Intubation History: No history of difficult intubation Significant Anesthesia Considerations: None Airway Exam: General: Normal appearance Mallampati Score is CLASS II ULBT: Class II - Lower incisors can bite the upper lip below the loida line Neck: Normal appearance and function, Distance from hyoid to mentum during neck extension is at least 3 finger breaths Mouth: Normal tongue size and Mouth opening greater than 2 finger breaths Dentition: Intact, Caps/crowns, and Implants Airway History: No abnormal airway history Subjective CHIEF COMPLAINT: Patient presents with: Pre-Op Visit HPI: This is a 42 year old male who presents for preanesthesia consultation. Patient had a. Denies any pain or discomfort with it. Has not gotten any larger. However he would like it removed. Patient has been recommended for above surgery. ACTIVE PROBLEM LIST Epidermoid Cyst Essential Hypertension Mixed Hyperlipidemia Overweight (Bmi 25.0-29.9) Numerous Skin Moles Hair Loss Acute Midline Low Back Pain PAST MEDICAL HISTORY Diagnosis Date Hair loss Hypertension Mixed hyperlipidemia 01/22/[address] Jauregui-Deshaun Chicas Overweight (BMI 25.0-29.9) Seasonal allergies spring PAST SURGICAL HISTORY Procedure Laterality Date EXTRACTION, ERUPTED TOOTH OR EXPOSED ROOT (ELEVATION AND/OR FORCEPS REMOVAL) 1999 FOOT LEFT OP SURGERY Left 2014 Dr. Miranda. Cyst removal FAMILY HISTORY Problem Relation Age of Onset No Known Problems Mother Diabetes Father Hypertension Father Coronary Artery Disease Father 65 [place] Heart Attack Father No Known Problems Brother No Known Problems Brother No Known Problems Maternal Grandmother Hypertension Paternal Grandmother Heart Paternal Grandmother [place] x 6; CABG, stents Cancer Paternal Grandfather Leukemia No Known Problems Daughter No Known Problems Daughter No Known Problems Daughter No Known Problems Son Seizures Maternal Uncle Social History Tobacco Use Smoking status: Former Packs/day: 1.50 Years: 8.00 Additional pack years: 0.00 Total pack years: 12.00 Types: Cigarettes Quit date: 04/20/2008 Years since quittin.0 Smokeless tobacco: Former Types: Chew Quit date: 12/06/2007 Vaping Use Vaping Use: Never used Substance Use Topics Alcohol use: Yes Alcohol/week: 3.0 - 5.0 standard drinks of alcohol Types: 3 - 5 Cans of Beer (12oz) per week Comment: occasionally - 0-5 drinks a week Drug use: No ALLERGIES Allergen Reactions Dotarem [Gadoterate* Hives Mri contrast MEDICATIONS: Current Outpatient Medications Medication Sig lisinopril-hydroCHLOR Othiazide (PRINZIDE, ZESTORETIC) 20-25 mg per tablet Take 1 tablet by mouth every morning. No current facility-administered medications for this visit. Covid Immunization Dates Overdue - Covid-19 Vaccine ( season) Overdue since 12/19/2022 03/15/2022 Postponed until 03/15/2023 by Caty Vanegas MD (Declined at this time) 05/02/2021 Imm Admin: COV (more content not included)... Normal [facility] XR Lumbar spine 3 Viewson IMPRESSION: Lumbar spine mild degenerative changes. Supervisor Stripping: BISI Transcribe Date/Time: Apr 23 2023 2:44P Dictated by : GABE MOREAU MD This examination was interpreted and the report reviewed and electronically signed by: GABE MOREAU MD on Apr 23 2023 2:45PM [facility] DIVISION OF RADIOLOGY * * *Final Report* * * DATE OF EXAM: Apr 17 2023 1:11PM WOX 5228 - XR LUMBAR 3V AP/LAT/L5-S1 / PROCEDURE REASON: Acute midline low back pain with left-sided sciatica * * * * Physician Interpretation * * * * EXAM TITLE: XR LUMBAR 3V AP/LAT/L5-S1 EXAM DATE/TIME: 04/17/2023 1:11 PM COMPARISON: None. CLINICAL INDICATION/HISTORY: Low back pain TECHNIQUE: AP, lateral and cone down lateral views of the lumbar spine are presented. FINDINGS: There are five izq-afv-sffucpz lumbar vertebrae. No fracture or subluxations are noted. The disc spaces are well preserved. There is mild osteophyte formation. DIVISION OF RADIOLOGY Provider, Lissa Thompson [facility] - 04/23/2023 * * *Final Report* * * DATE OF EXAM: Apr 17 2023 1:11PM WOX 5228 - XR LUMBAR 3V AP/LAT/L5-S1 / PROCEDURE REASON: Acute midline low back pain with left-sided sciatica * * * * Physician Interpretation * * * * EXAM TITLE: XR LUMBAR 3V AP/LAT/L5-S1 EXAM DATE/TIME: 04/17/2023 1:11 PM COMPARISON: None. CLINICAL INDICATION/HISTORY: Low back pain TECHNIQUE: AP, lateral and cone down lateral views of the lumbar spine are presented. FINDINGS: There are five mko-egg-ceabnwy lumbar vertebrae. No fracture or subluxations are noted. The disc spaces are well preserved. There is mild osteophyte formation. IMPRESSION IMPRESSION: Lumbar spine mild degenerative changes. Supervisor Stripping: PSCB Transcribe Date/Time: Apr 23 2023 2:44P Dictated by : GABE MOREAU MD This examination was interpreted and the report reviewed and electronically signed by: GABE MOREAU MD on Apr 23 2023 2:45PM EST [facility] XR Lumbar spine 3 ViewsOrder ed By: Ccf Provider on 04-23-2023 [facility] XR Lumbar spine 3 Viewson Radiology Study observation (narrative) [facility] Basophil percentageOrdered B y: Damián Vanegas on 02-16-2023 Basophil percentage < 0.9 mg/dL 0.70-1.30 [facility] No Panel InformationOrdered By: Damián Vanegas on 02-16-2023 Bedside Estimated GFR (eGFR) > 60.0000 mL/min >60 [facility] STREP A MOLECULAR (POC)on Procedural Control Valid [facility] Strep A (POCT) Negative Negative [facility] ALLERGEN SKIN TEST-PENICILLI N [facility] Vital Signs Date Time Vital Sign Value Performing Clinician Andrea rodriguez 06-06-2024 11:59-0500 Body height 181.2 cm Arline Podlogar [employer] INSTALLATION HELPER.WEATHERIZATION AND HOUSING INSPECTOR Work Phone: [facility] 06-06-2024 11:59-0500 Body mass index (BMI) [Ratio] 28.42 kg/m2 Arline Podlogar [employer] INSTALLATION HELPER.WEATHERIZATION AND HOUSING INSPECTOR Work Phone: [facility] 06-06-2024 11:59-0500 Body weight 93.3 kg Arline Podlogar [employer] INSTALLATION HELPER.WEATHERIZATION AND HOUSING INSPECTOR Work Phone: [facility] 06-06-2024 11:59-0500 Diastolic blood pressure 84 mm[Hg] Arline Podlogar [employer] INSTALLATION HELPER.WEATHERIZATION AND HOUSING INSPECTOR Work Phone: [facility] 06-06-2024 11:59-0500 Heart rate 78 /min Arline Podlogar [employer] INSTALLATION HELPER.WEATHERIZATION AND HOUSING INSPECTOR Work Phone: [facility] 06-06-2024 11:59-0500 Respiratory rate 16 /min Arline Podlogar [employer] INSTALLATION HELPER.WEATHERIZATION AND HOUSING INSPECTOR Work Phone: [facility] 06-06-2024 11:59-0500 SaO2% (BldA) [Mass fraction] 98 % Podlogar [employer] INSTALLATION HELPER.WEATHERIZATION AND HOUSING INSPECTOR Work Phone: [facility] 06-06-2024 11:59-0500 Systolic blood pressure 136 mm[Hg] Arline Podlogar [employer] INSTALLATION HELPER.WEATHERIZATION AND HOUSING INSPECTOR Work Phone: [facility] 01-06-2024 14:55-0400 Body mass index (BMI) [Ratio] 27.69 kg/m2 Jimi Fragoso MD Work Phone: [facility] 01-06-2024 14:55-0400 Body temperature 97.59 [degF] Jimi Fragoso MD Work Phone: [facility] 01-06-2024 14:55-0400 Body weight 92.6 kg Jimi Fragoso MD Work Phone: [facility] 01-06-2024 14:55-0400 Diastolic blood pressure 82 mm[Hg] Jimi Fragoso MD Work Phone: [facility] 01-06-2024 14:55-0400 Heart rate 94 /min Jimi Fragoso MD Work Phone: [facility] 01-06-2024 14:55-0400 Respiratory rate 18 /min Jimi Fragoso MD Work Phone: [facility] 01-06-2024 14:55-0400 SaO2% (BldA) [Mass fraction] 97 % Jimi Fragoso MD Work Phone: [facility] 01-06-2024 14:55-0400 Systolic blood pressure 135 mm[Hg] Jimi Fragoso MD Work Phone: [facility] 12-07-2023 07:31-0400 Body mass index (BMI) [Ratio] 27.62 kg/m2 Caty Vanegas MD Work Phone: [facility] 12-07-2023 07:31-0400 Body weight 92.36 kg Caty Vanegas MD Work Phone: [facility] 12-07-2023 07:31-0400 Diastolic blood pressure 74 mm[Hg] Caty Vanegas MD Work Phone: [facility] 12-07-2023 07:31-0400 Heart rate 85 /min Caty Vanegas MD Work Phone: [facility] 12-07-2023 07:31-0400 Respiratory rate 16 /min Caty Vanegas MD Work Phone: [facility] 12-07-2023 07:31-0400 SaO2% (BldA) [Mass fraction] 96 % Caty Vanegas MD Work Phone: [facility] 12-07-2023 07:31-0400 Systolic blood pressure 128 mm[Hg] Caty Vanegas MD Work Phone: [facility] 11-23-2023 07:52-0400 Body mass index (BMI) [Ratio] 28.23 kg/m2 Caty Vanegas MD Work Phone: [facility] 11-23-2023 07:52-0400 Body weight 94.4 kg Caty Vanegas MD Work Phone: [facility] 11-23-2023 07:52-0400 Diastolic blood pressure 88 mm[Hg] Caty Vanegas MD Work Phone: [facility] 11-23-2023 07:52-0400 Heart rate 95 /min Caty Vanegas MD Work Phone: [facility] 11-23-2023 07:52-0400 Respiratory rate 16 /min Caty Vanegas MD Work Phone: [facility] 11-23-2023 07:52-0400 SaO2% (BldA) [Mass fraction] 97 % Caty Vanegas MD Work Phone: [facility] 11-23-2023 07:52-0400 Systolic blood pressure 158 mm[Hg] Caty Vanegas MD Work Phone: [facility] 11-06-2023 14:19-0400 Body mass index (BMI) [Ratio] 28.58 kg/m2 Brea Saucedo APRN.WEATHERIZATION AND HOUSING INSPECTOR Work Phone: [facility] 11-06-2023 14:19-0400 Body temperature 100.29 [degF] Brea Saucedo APRN.WEATHERIZATION AND HOUSING INSPECTOR Work Phone: [facility] 11-06-2023 14:19-0400 Body weight 95.6 kg Brea Saucedo APRN.WEATHERIZATION AND HOUSING INSPECTOR Work Phone: [facility] 11-06-2023 14:19-0400 Diastolic blood pressure 85 mm[Hg] Brea Saucedo APRN.WEATHERIZATION AND HOUSING INSPECTOR Work Phone: [facility] 11-06-2023 14:19-0400 Heart rate 124 /min Brea Saucedo APRN.WEATHERIZATION AND HOUSING INSPECTOR Work Phone: [facility] 11-06-2023 14:19-0400 Respiratory rate 18 /min Brea Saucedo APRN.WEATHERIZATION AND HOUSING INSPECTOR Work Phone: [facility] 11-06-2023 14:19-0400 SaO2% (BldA) [Mass fraction] 97 % Brea Saucedo [employer] INSTALLATION HELPER.WEATHERIZATION AND HOUSING INSPECTOR Work Phone: [facility] 11-06-2023 14:19-0400 Systolic blood pressure 132 mm[Hg] Brea Saucedo APRN.WEATHERIZATION AND HOUSING INSPECTOR Work Phone: [facility] 03-05-2023 15:30-0500 Body height 182.9 cm Ajay Damon MD Work Phone: [facility] 03-05-2023 15:30-0500 Body temperature 97.81 [degF] Ajay Damon MD Work Phone: [facility] 03-05-2023 15:30-0500 Body weight 96.07 kg Ajay Damon MD Work Phone: [facility] 03-05-2023 15:30-0500 Diastolic blood pressure 84 mm[Hg] Ajay Damon MD Work Phone: [facility] 03-05-2023 15:30-0500 Heart rate 83 /min Aajy Damon MD Work Phone: [facility] 03-05-2023 15:30-0500 SaO2% (BldA) [Mass fraction] 100 % Ajay Damon MD Work Phone: [facility] 03-05-2023 15:30-0500 Systolic blood pressure 132 mm[Hg] Ajay Damon MD Work Phone: [facility] 02-13-2023 13:35-0400 Diastolic blood pressure 82 mm[Hg] Caty Vanegas MD Work Phone: [facility] 02-13-2023 13:35-0400 Systolic blood pressure 130 mm[Hg] Caty Vanegas MD Work Phone: [facility] 02-13-2023 13:16-0400 Body weight 97.16 kg Caty Vanegas MD Work Phone: [facility] 02-13-2023 13:16-0400 Heart rate 89 /min Caty Vanegas MD Work Phone: [facility] 02-13-2023 13:16-0400 Respiratory rate 16 /min Caty Vanegas MD Work Phone: [facility] 02-13-2023 13:16-0400 SaO2% (BldA) [Mass fraction] 95 % Caty Vanegas MD Work Phone: [facility] 05-21-2022 08:45-0500 Body weight 98.25 kg Antoinette Lang MD Work Phone: [facility] 05-21-2022 08:45-0500 Diastolic blood pressure 99 mm[Hg] Antoinette Lang MD Work Phone: [facility] 05-21-2022 08:45-0500 Heart rate 79 /min Antoinette Lang MD Work Phone: [facility] 05-21-2022 08:45-0500 SaO2% (BldA) [Mass fraction] 97 % Antoinette Lang MD Work Phone: [facility] 05-21-2022 08:45-0500 Systolic blood pressure 137 mm[Hg] Antoinette Lang MD Work Phone: [facility] 03-15-2022 10:22-0500 Body height 181.2 cm Caty Vanegas MD Work Phone: [facility] 03-15-2022 10:22-0500 Body weight 97.16 kg Caty Vanegas MD Work Phone: [facility] 03-15-2022 10:22-0500 Diastolic blood pressure 84 mm[Hg] Caty Vanegas MD Work Phone: [facility] 03-15-2022 10:22-0500 Heart rate 76 /min Caty Vanegas MD Work Phone: [facility] 03-15-2022 10:22-0500 Respiratory rate 16 /min Caty Vanegas MD Work Phone: [facility] 11-26-2022 10:22-0500 SaO2% (BldA) [Mass fraction] 97 % Caty Vanegas MD Work Phone: [facility] 03-15-2022 10:22-0500 Systolic blood pressure 132 mm[Hg] Caty Vanegas MD Work Phone: [facility] 12-15-2021 11:47-0400 Body temperature 97.59 [degF] Brea Saucedo APRN.WEATHERIZATION AND HOUSING INSPECTOR Work Phone: [facility] 12-15-2021 11:47-0400 Body weight 95.44 kg Brea Saucedo APRN.WEATHERIZATION AND HOUSING INSPECTOR Work Phone: [facility] 12-15-2021 11:47-0400 Diastolic blood pressure 84 mm[Hg] Brea Saucedo APRN.WEATHERIZATION AND HOUSING INSPECTOR Work Phone: [facility] 12-15-2021 11:47-0400 Heart rate 71 /min Brea Saucedo APRN.WEATHERIZATION AND HOUSING INSPECTOR Work Phone: [facility] 12-15-2021 11:47-0400 Respiratory rate 16 /min Brea Saucedo APRN.WEATHERIZATION AND HOUSING INSPECTOR Work Phone: [facility] 12-15-2021 11:47-0400 SaO2% (BldA) [Mass fraction] 97 % Brea Saucedo APRN.WEATHERIZATION AND HOUSING INSPECTOR Work Phone: [facility] 12-15-2021 11:47-0400 Systolic blood pressure 128 mm[Hg] Brea Saucedo APRN.WEATHERIZATION AND HOUSING INSPECTOR Work Phone: [facility] Encounters Encounter Date Encounter Type Care Provider Facility Start: 03-10-2025 ambulatory Kimo Friend Facility :[facility] Start: 03-07-2025 ambulatory Yu Wong Facili ty:[facility] Start: 02-14-2025 End: 02-14-2025 ambulatory Yu Wong Facility:[facility] Start: 01-09-2025 End: 01-09-2025 ambulatory ARLINE PODLOGAR Facility:[facility] Start: 11-21-2024 End: 11-21-2024 ambulatory Arline Podlogar [employer] INSTALLATION HELPER.WEATHERIZATION AND HOUSING INSPECTOR Work Phone: [facility] Comment on above: Medication Start: 11-20-2024 End: 11-21-2024 ambulatory Arline Podlogar [employer] INSTALLATION HELPER.WEATHERIZATION AND HOUSING INSPECTOR Work Phone: [facility] Comment on above: Insurance change Start: 11-07-2024 End: 11-07-2024 Refill Caty Vanegas MD Work Phone: [facility] Comment on above: Refill Request Start: 06-08-2024 End: 06-13-2024 Follow-up encounter Radha Walker LPN [facility] Start: 06-07-2024 End: 06-07-2024 ambulatory ARLINE PODLOGAR Facility:[facility] Start: 06-07-2024 Patient encounter procedure ARLINE PODLOGAR [facility] Start: 06-06-2024 End: 06-06-2024 ambulatory ARLINE PODLOGAR Facility:[facility] Start: 06-06-2024 End: 06-06-2024 Patient encounter procedure Arline Podlogbrooke [employer] INSTALLATION HELPER.WEATHERIZATION AND HOUSING INSPECTOR Work Phone: [facility] Comment on above: Annual physical exam (Primary Dx); Essential hypertension; Mixed hyperlipidemia Start: 06-01-2024 End: 06-03-2024 Refill Arline Podlogar [employer] INSTALLATION HELPER.WEATHERIZATION AND HOUSING INSPECTOR Work Phone: [facility] Comment on above: Refill Request Start: 02-29-2024 End: 02-29-2024 ambulatory Caty Vanegas MD Work Phone: [facility] Comment on above: Sorry Start: 02-20-2024 End: 02-22-2024 Refill Caty Vanegas MD Work Phone: [facility] Comment on above: Refill Request Start: 01-06-2024 End: 01-06-2024 Patient encounter procedure Jimi Fragoso MD Work Phone: [facility] Comment on above: Dysfunction of left eustachian tube (Primary Dx) Start: 12-08-2023 End: 12-08-2023 Telephone encounter Caty Vanegas MD Work Phone: [facility] Comment on above: Results Start: 12-07-2023 End: 12-07-2023 Patient encounter procedure Caty Vanegas MD Work Phone: [facility] Comment on above: Essential hypertensi on (Primary Dx) Start: 11-23-2023 End: 11-23-2023 Patient encounter procedure Caty Vanegas MD Work Phone: [facility] Comment on above: Essential hypertensi on Start: 11-07-2023 Refill Caty Vanegas MD Work Phone: [facility] Comment on above: Refill Request Start: 11-06-2023 End: 11-06-2023 Subsequent hospital visit by physician Xr [facility] Work Phone: Radiology Comment on above: Acute cough [R05.1] Start: 11-06-2023 End: 11-06-2023 Patient encounter procedure Brea Saucedo APRN.CNP Work Phone: [facility] Comment on above: Acute cough (Primary Dx); Bacterial pneumonia Start: 05-20-2023 End: 05-20-2023 ambulatory AJAY DAMON Facility:[facility] Start: 04-27-2023 End: 04-27-2023 ambulatory CATY VANEGAS Facility:[facility] Start: 04-27-2023 Encounter for other preprocedural examination [facility] Start: 04-17-2023 End: 04-17-2023 Subsequent hospital visit by physician Xr [facility] Work Phone: Radiology Comment on above: Acute midline low ba ck pain with left-sided sciatica [M54.42] Start: 03-05-2023 End: 03-05-2023 Patient encounter procedure Ajay Damon MD Work Phone: General Surgery Comment on above: Intramuscular lipoma (Primary Dx) Start: 03-05-2023 End: 02-23-2024 Telephone encounter Ajay Damon MD Work Phone: General Surgery Comment on above: 05/20/2023 EXCISION I NTRAMUSCULAR LIPOMA LEFT FLANK [place] Start: 02-16-2023 Chart abstracting Caty Vanegas MD Work Phone: [facility] Comment on above: Outside Labs-[facility] Start: 02-16-2023 End: 02-16-2023 ambulatory [facility] Work Phone: Start: 02-16-2023 End: 02-16-2023 Patient encounter procedure [facility] - [facility] Work Phone: Start: 02-13-2023 End: 02-13-2023 Patient encounter procedure Caty Vanegas MD Work Phone: [facility] Comment on above: Mass on back (Primar y Dx); Localized swelling, mass and lump, trunk; Contrast media allergy Start: 05-21-2022 End: 05-21-2022 Patient encounter procedure Antoinette Lang MD Work Phone: Allergy Comment on above: Wlw-sder-fozicbs adv erse effect of medication, initial encounter (Primary Dx); Penicillin allergy Start: 03-21-2022 Telephone encounter Damián Vanegas MD Work Phone: [facility] Comment on above: Results Start: 03-20-2022 ambulatory Caty Vanegas MD Work Phone: [facility] Comment on above: Couldn't get meds Start: 03-15-2022 End: 03-15-2022 Patient encounter procedure Caty Vanegas MD Work Phone: [facility] Comment on above: Encounter for medica l examination to establish care (Primary Dx); Essential hypertension; Mixed hyperlipidemia; Penicillin allergy; Overweight (BMI 25.0-29.9); Numerous skin moles; Hair loss; Need for influenza vaccination; Encounter for immunization Start: 03-15-2022 End: 03-15-2022 Patient encounter status [facility] Start: 12-15-2021 End: 12-15-2021 Patient encounter procedure Brea Saucedo APRN.WEATHERIZATION AND HOUSING INSPECTOR Work Phone: [facility] Comment on above: Sore throat (Primary Dx) Start: 04-08-2017 End: 03-15-2022 Patient encounter status Brea Saucedo APRN.WEATHERIZATION AND HOUSING INSPECTOR Work Phone: [facility] Work Phone: Procedures Date Procedure Procedure Detail Performing Clinician Start: 06-07-2024 Lipid 1996 panel - S emily or Plasma Radha Walker LPN Start: 11-06-2023 Radiologic exam ches t 2 views Brea Saucedo APRN.WEATHERIZATION AND HOUSING INSPECTOR Work Phone: Start: 04-17-2023 Radex spine lumbosac ral 2/3 views Cinthia Blas APRN.WEATHERIZATION AND HOUSING INSPECTOR Work Phone: Start: 02-16-2023 MRI of chest with contrast Start: 05-21-2022 ALLERGEN SKIN TEST-PENICILLIN Antoinette Lang MD Work Phone: Start: 03-20-2022 Lipid 1996 panel - S emily or Plasma Caty Vanegas MD Work Phone: Start: 03-15-2022 INFLUENZA VACCINE QUADRIVALENT 6 MO - 64 YRS IM Caty Vanegas MD Work Phone: Start: 12-15-2021 STREP A MOLECULAR (POC) Brea Saucedo APRN.WEATHERIZATION AND HOUSING INSPECTOR Work Phone: Start: 01-16-2021 Adult depression scr eening assessment Brea Saucedo APRN.WEATHERIZATION AND HOUSING INSPECTOR Work Phone: Plan of Treatment Date Care Activity Detail Author Start: 03-15-2032 Urine microalbumin profile [facility] Start: 06-07-2029 Lipid panel Lipid Screening [facility] Start: 03-20-2027 Lipid 1996 panel - Serum or Plasma Lipid Screening [facility] Start: 03-20-2027 Lipid panel Lipid Screening [facility] Start: 03-20-2027 LIPID SCREEN LIPID SCREEN [facility] Start: 01-22-2026 LIPID SCREEN LIPID SCREEN [facility] Start: 06-07-2025 End: 06-07-2025 Patient encounter procedure 06/07/2025 8:00 AM EST Office [facility] [address] [place] [address] Caty Vanegas MD [address] [place] [address] [facility] Comment on above: Physical Start: 06-06-2025 Annual PCP Team Blue Line Operator henri Disease Visit Annual PCP Team Chronic Disease Visit [facility] Start: 06-06-2025 Covid-19 Vaccine ( season) Covid-19 Vaccine () [facility] Comment on above: Postponed from 12/19 (Declined at this time) Start: 12-19-2024 Influenza vaccination Influenza Vacc ine (#1) [facility] Start: 12-06-2024 Annual PCP Team Blue Line Operator henri Disease Visit Annual PCP Team Chronic Disease Visit [facility] Start: 12-06-2024 BP Controlled (<130/80) BP Controlle d (<130/80) [facility] Start: 11-22-2024 Annual PCP Team Blue Line Operator henri Disease Visit Annual PCP Team Chronic Disease Visit [facility] Start: 10-17-2024 Influenza vaccination Influenza Vacc ine (#1) [facility] Comment on above: Postponed from 12/19 (Declined at this time) Start: 06-06-2024 End: 09-05-2024 CBC W Auto Differential panel - Blood COMPLETE BLOOD COUNT AND DIFFERENTIAL Lab Routine Annual physical exam Expected: 06/06/2024, Expires: 09/05/2024 [facility] Comment on above: Expected: 06/06/2024 , Expires: 09/05/2024 Start: 06-06-2024 End: 09-05-2024 Comprehensive metabolic 2000 panel - Serum or Plasma COMPREHENSIVE METABOLIC PANEL Lab Routine Essential hypertension Annual physical exam Expected: 06/06/2024, Expires: 09/05/2024 [facility] Comment on above: Expected: 06/06/2024 , Expires: 09/05/2024 Start: 06-06-2024 [facility] from 12/22 (Declined at this time) Start: 06-06-2024 End: 09-05-2024 Lipid 1996 panel - Serum or Plasma LIPID PANEL BASIC Lab Routine Mixed hyperlipidemia Expected: 06/06/2024, Expires: 09/05/2024 [facility] Work Phone: Comment on above: Expected: 06/06/2024 , Expires: 09/05/2024 Start: 06-06-2024 End: 06-06-2024 Patient encounter procedure 06/06/2024 11:40 AM EST Office Visit [facility] [address] [place], [place] [id number] Arline Jay, [employer] INSTALLATION HELPER.WEATHERIZATION AND HOUSING INSPECTOR [address] [place] [id number] physical [facility] Comment on above: physical Start: 04-17-2024 Annual PCP Team Blue Line Operator henri Disease Visit Annual PCP Team Chronic Disease Visit [facility] Start: 04-17-2024 Covid-19 Vaccine () Covid-19 Vaccine () [facility] Comment on above: Postponed from 12/19 (Declined at this time) Start: 03-08-2024 End: 03-08-2024 Patient encounter procedure 03/08/2024 2:00 PM EST Office Visit [facility] [address] [place] [address] Arline Jay, [employer] INSTALLATION HELPER.WEATHERIZATION AND HOUSING INSPECTOR [address] [place] [id number] physical [facility] Comment on above: physical Start: 02-29-2024 End: 02-29-2024 Patient encounter procedure 02/29/2024 7:00 AM EST Office Visit [facility] [address] [place], [place] [id number] Caty Vanegas MD [address] [place], [place] [id number] annual physical [facility] Comment on above: annual physical Start: 02-14-2024 Annual PCP Team Blue Line Operator henri Disease Visit Annual PCP Team Chronic Disease Visit [facility] Start: 12-20-2023 Covid-19 Vaccine ( season) Covid-19 Vaccine () [facility] Start: 12-20-2023 Covid-19 Vaccine () Covid-19 Vaccine () [facility] Start: 12-20-2023 Influenza vaccination Influenza Vacc ine (#1) [facility] Start: 12-07-2023 End: 03-07-2024 Comprehensive metabolic 2000 panel - Serum or Plasma [facility] Work Phone: Comment on above: Expected: 12/07/2023 , Expires: 03/07/2024 Start: 12-07-2023 End: 12-07-2023 Patient encounter procedure 12/07/2023 7:40 AM EDT Office Visit [facility] [address] [place] [phone] Caty Vanegas MD [address] [place] [id number] 2 week BP follow up [facility] Comment on above: 2 week BP follow up Start: 04-20-2023 Behavioral Health Screening Behavioral Health Screening [facility] Start: 03-15-2023 ANNUAL PCP TEAM BALL MAKER HENRI DISEASE VISIT ANNUAL PCP TEAM CHRONIC DISEASE VISIT [facility] Start: 03-15-2023 COVID-19 VACCINE (4 - Booster for Pfizer series) COVID-19 VACCINE (4 - Booster for Pfizer series) [facility] Comment on above: Postponed from 06/27 (Declined at this time) Start: 03-15-2023 HEPATITIS B (1 of 3 - 3-dose series) HEPATITIS B (1 of 3 - 3-dose series) [facility] Comment on above: Postponed from 12/22 (Declined at this time) Start: 03-15-2023 Hepatitis B Vaccine (1 of 3 - 3-dose series) Hepatitis B Vaccine (1 of 3 - 3-dose series) [facility] Comment on above: Postponed from 12/22 (Declined at this time) Start: 12-19-2022 Covid-19 Vaccine () Covid-19 Vaccine ( season) [facility] Start: 12-19-2022 Influenza vaccination Influenza Vacc ine (#1) [facility] Start: 06-21-2022 End: 08-21-2022 Lipid 1996 panel - Serum or Plasma LIPID PANEL BASIC Lab Routine Mixed hyperlipidemia Expected: 06/21/2022, Expires: 08/21/2022 [facility] Work Phone: Comment on above: Expected: 06/21/2022 , Expires: 08/21/2022 Start: 04-20-2022 DEPRESSION ASSESSMENT DEPRESSION ASS ESSMENT [facility] Start: 03-15-2022 End: 05-15-2022 CBC panel - Blood by Automated count CBC Lab Routine Encounter for medical examination to establish care Expected: 03/15/2022, Expires: 05/15/2022 [facility] Work Phone: Comment on above: Expected: 03/15/2022 , Expires: 05/15/2022 Start: 03-15-2022 End: 05-15-2022 Comprehensive metabolic 2000 panel - Serum or Plasma COMP METABOLIC PANEL Lab Routine Encounter for medical examination to establish care Expected: 03/15/2022, Expires: 05/15/2022 [facility] Work Phone: Comment on above: Expected: 03/15/2022 , Expires: 05/15/2022 Start: 03-15-2022 End: 05-15-2022 Lipid 1996 panel - Serum or Plasma LIPID PANEL BASIC Lab Routine Encounter for medical examination to establish care Expected: 03/15/2022, Expires: 05/15/2022 [facility] Work Phone: Comment on above: Expected: 03/15/2022 , Expires: 05/15/2022 Start: 01-22-2022 ANNUAL PCP TEAM BALL MAKER HENRI DISEASE VISIT ANNUAL PCP TEAM CHRONIC DISEASE VISIT [facility] Start: 01-22-2022 BP CONTROLLED (<130/80) BP CONTROLLE D (<130/80) [facility] [facility] Start: 01-16-2022 Adult depression screening assessment DEPRESSION SCREENING [facility] Start: 12-19-2021 Influenza vaccination INFLUENZA (#1) [facility] Start: 12-15-2021 End: 02-14-2022 Heterophile Ab [Presence] in Serum by Latex agglutination MONOTEST, INFECTIOUS MONO Lab Routine Sore throat Expected: 12/15/2021, Expires: 02/14/2022 [facility] Work Phone: Comment on above: Expected: 12/15/2021 , Expires: 02/14/2022 Start: 01-10-2018 Urine microalbumin profile DTAP,TDAP,TD (8 - Td or Tdap) [facility] Start: 12-22-1998 Hepatitis B Vaccine (1 of 3 - 19+ 3-dose series) Hepatitis B Vaccine (1 of 3 - 19+ 3-dose series) [facility] Start: 12-22-1997 Anxiety Screening Anxiety Screening [facility] Start: 12-22-1997 Depression Screening Depression Scre ening [facility] Start: 1979 HEPATITIS B (1 of 3 - 3-dose series) HEPATITIS B (1 of 3 - 3-dose series) [facility] End: 03-14-2024 MRI CHEST WALL/RIB WO/W IVCON LEFT MRI CHEST WALL/RIB WO/W IVCON LEFT Radiology HA Mass on back Localized swelling, mass and lump, trunk 1 Occurrences starting 02/13/2023 until 03/14/2024 [facility] Work Phone: Comment on above: 1 Occurrences starti ng 02/13/2023 until 03/14/2024 [facility] Immunizations Immunization Date Immunization Notes Care Provider Fa cili 03-15-2022 influenza, injectabl e, quadrivalent, contains preservative Caty Vanegas MD Work Phone: [facility] 03-15-2022 tetanus toxoid, reduced diphtheria toxoid, and acellular pertussis vaccine, adsorbed Caty Vanegas MD Work Phone: [facility] 03-15-2022 influenza virus vaccine, unspecified formulation Caty Vanegas MD Work Phone: [facility] 05-02-2021 COVID-19 vaccine, ag e 12+ yr ([employer] - PURPLE TOP) Brea Saucedo APRN.CNP Work Phone: [facility] 01-22-2021 influenza, injectabl e, quadrivalent, contains preservative Brea Saucedo APRN.WEATHERIZATION AND HOUSING INSPECTOR Work Phone: [facility] 02-28-2020 influenza, injectabl e, quadrivalent, contains preservative Brea Saucedo APRN.WEATHERIZATION AND HOUSING INSPECTOR Work Phone: [facility] 04-01-2019 influenza virus vaccine, unspecified formulation Brea Saucedo APRN.WEATHERIZATION AND HOUSING INSPECTOR Work Phone: [facility] Work Phone: 04-01-2019 influenza, injectabl e, quadrivalent, contains preservative Brea Saucedo APRN.WEATHERIZATION AND HOUSING INSPECTOR Work Phone: [facility] 02-10-2017 influenza, seasonal, injectable Brea Saucedo APRN.WEATHERIZATION AND HOUSING INSPECTOR Work Phone: [facility] Work Phone: 02-09-2016 influenza, injectabl e, quadrivalent, contains preservative Brea Saucedo APRN.WEATHERIZATION AND HOUSING INSPECTOR Work Phone: [facility] 01-11-2008 tetanus toxoid, reduced diphtheria toxoid, and acellular pertussis vaccine, adsorbed Brea Saucedo APRN.WEATHERIZATION AND HOUSING INSPECTOR Work Phone: [facility] Work Phone: 12-09-2000 Meningococcal, MCV4, unspecified conjugate formulation(groups A, C, Y and W-135) Brea Saucedo APRN.WEATHERIZATION AND HOUSING INSPECTOR Work Phone: [facility] 12-30-1993 diphtheria and tetan us toxoids, adsorbed for pediatric use Brea Saucedo APRN.WEATHERIZATION AND HOUSING INSPECTOR Work Phone: [facility] 11-07-1990 diphtheria and tetan us toxoids, adsorbed for pediatric use Brea Saucedo APRN.WEATHERIZATION AND HOUSING INSPECTOR Work Phone: [facility] 12-20-1987 diphtheria, tetanus toxoids and pertussis vaccine Brea Saucedo APRN.WEATHERIZATION AND HOUSING INSPECTOR Work Phone: [facility] 12-20-1987 trivalent poliovirus vaccine, live, oral Brea Saucedo APRN.WEATHERIZATION AND HOUSING INSPECTOR Work Phone: [facility] 08-24-1985 diphtheria, tetanus toxoids and pertussis vaccine Brea Glenn [employer] INSTALLATION HELPER.WEATHERIZATION AND HOUSING INSPECTOR Work Phone: [facility] 08-24-1985 trivalent poliovirus vaccine, live, oral Brea Glenn [employer] INSTALLATION HELPER.WEATHERIZATION AND HOUSING INSPECTOR Work Phone: [facility] 09-20-1982 measles, mumps and rubella virus vaccine Brea Glenn [employer]OR INSTALLATION HELPER.WEATHERIZATION AND HOUSING INSPECTOR Work Phone: [facility] Work Phone: 06-28-1981 diphtheria, tetanus toxoids and pertussis vaccine Brea Glenn [employer] INSTALLATION HELPER.WEATHERIZATION AND HOUSING INSPECTOR Work Phone: [facility] 03-19-1981 measles, mumps and rubella virus vaccine Brea Glenn [employer]OR INSTALLATION HELPER.WEATHERIZATION AND HOUSING INSPECTOR Work Phone: [facility] 06-20-1980 trivalent poliovirus vaccine, live, oral Brea Glenn [employer]OR INSTALLATION HELPER.WEATHERIZATION AND HOUSING INSPECTOR Work Phone: [facility] 04-25-1980 diphtheria, tetanus toxoids and pertussis vaccine Brea Glenn [employer]OR INSTALLATION HELPER.WEATHERIZATION AND HOUSING INSPECTOR Work Phone: [facility] 04-25-1980 trivalent poliovirus vaccine, live, oral Brea Glenn [employer] INSTALLATION HELPER.WEATHERIZATION AND HOUSING INSPECTOR Work Phone: [facility] 02-22-1980 diphtheria, tetanus toxoids and pertussis vaccine Brea Glenn [employer] INSTALLATION HELPER.WEATHERIZATION AND HOUSING INSPECTOR Work Phone: [facility] 02-22-1980 trivalent poliovirus vaccine, live, oral Brea Glenn [employer] INSTALLATION HELPER.WEATHERIZATION AND HOUSING INSPECTOR Work Phone: [facility] 01-21-1980 diphtheria, tetanus toxoids and pertussis vaccine Brea Glenn [employer]OR INSTALLATION HELPER.WEATHERIZATION AND HOUSING INSPECTOR Work Phone: [facility] Payers Date Payer Category Payer Self-pay [id number] 2024 Unknown [id number] 2022 Private Health Insurance [id number] 2022 Private Health Insurance [id number] 2020 Unknown SUBHA DIAZ PPO [id number] 2020-Present [phone] [address] [place] [address] PPO [id number] Unknown [facility] [id number] Unknown [facility] PACKAGE PLAN [id number] Unknown [id number] Unknown [id number] Unknown [id number] Unknown [id number] Social History Date Type Detail Facility Start: 12-15-2021 End: 12-07-2023 Tobacco smoking status NHIS Ex-smoker [facility] Start: 04-20-2000 End: 04-20-2008 History of tobacco use Current smoker [facility] Start: 04-20-2000 End: 04-20-2008 History of tobacco use Cigarette Smoker [facility] Start: 12-15-2021 End: 02-29-2024 Cigarettes smoked current (pack per day) - Reported 1.5 [facility] Start: 12-15-2021 End: 12-07-2023 Tobacco use and exposure Former smokeless tobacco user [facility] End: 12-06-2007 History of tobacco use Chews Tobacco [facility] Start: 12-15-2021 End: 06-06-2024 Alcohol intake Current drinker of alcohol (finding) [facility] Start: 10-25-2019 History SDOH Alcohol Frequency 4 [facility] Start: 10-25-2019 End: 03-30-2020 History SDOH Alcohol Std Drinks 2 [facility] Start: 10-25-2019 History SDOH Alcohol Binge 3 [facility] Start: 10-25-2019 History SDOH Social Connections Meetings 98 [facility] Start: 10-25-2019 End: 03-30-2020 History SDOH Stress 1 [facility] Start: 02-28-2020 History SDOH Financial 5 [facility] Start: 10-25-2019 Education 17 [facility] Start: 1980 Sex Assigned At Male [facility] Start: 12-05-2021 End: 12-15-2021 Exposure to SARS-CoV-2 (event) Not sure [facility] Start: 10-25-2019 End: 02-29-2024 Social connection and isolation panel [facility] Do you belong to any clubs or organizations such as mosque groups, [employer], [employer] or [employer] groups, or school groups? No [facility] How often do you att end meetings of the clubs or organizations you belong to? Patient refused [facility] Are you now , , , , never or living with a partner? [facility] How often to you hav e a drink containing alcohol? 2-3 time sa week [facility] How many standard dr inks containing alcohol do you have on a typical day? 3 or 4 [facility] How often do you hav e 6 or more drinks on 1 occasion? Monthly [facility] Do you feel stress - tense, restless, nervous, or anxious, or unable to sleep at night because your mind is troubled all the time - these days [OSQ] Not at all [facility] (I/We) worried wheth er (my/our) food would run out before (I/we) got money to buy more. Never true [facility] Work Phone: Start: 01-16-2021 Gender identity Identifies as male gender (finding) [facility] Start: 01-16-2021 Sexual orientation Heterosexual (finding) [facility] Start: 12-27-2018 Tobacco smoking status NHIS Unknown if ever smoked [facility] Do you belong to any clubs or organizations such as mosque groups, [employer], [employer] or athletic groups, or school groups? Yes [facility] How often do you hav e 6 or more drinks on 1 occasion? Less than monthly [facility] Do you feel stress - tense, restless, nervous, or anxious, or unable to sleep at night because your mind is troubled all the time - these days [OSQ] Only a little [facility] Start: 04-27-2023 Alcohol Comment occasionally - 0-5 drinks a week [facility] How often to you hav e a drink containing alcohol? 4 or more times a week [facility] How many standard dr inks containing alcohol do you have on a typical day? 1 or 2 [facility] Functional Status Date Assessment Result Facility 09-20-2014 Are you deaf, or do you have serious difficulty hearing No 09/20/2014 10:07 AM Katalina Gilbert MA No [facility] 09-20-2014 Are you blind, or do you have serious difficulty seeing, even when wearing glasses No 09/20/2014 10:07 AM Katalina Gilbert MA No [facility] 09-20-2014 Do you have serious difficulty walking or climbing stairs No 09/20/2014 10:07 AM Katalina Gilbert MA No [facility] 09-20-2014 Do you have difficul ty dressing or bathing No 09/20/2014 10:07 AM Katalina Gilbert MA No [facility] 09-20-2014 Because of a physica l, mental, or emotional condition, do you have difficulty doing errands alone such as visiting a physician's office or shopping No 09/20/2014 10:07 AM Katalina Gilbert MA No [facility] Mental Status Date Assessment Result Facility 09-20-2014 Because of a physica l, mental, or emotional condition, do you have serious difficulty concentrating, remembering, or making decisions No 09/20/2014 10:07 AM Katalina Gilbert MA No [facility] Clinical Notes 12-29-2014 to 01-09-2025 Telephone Encounter - Valentino Tian LPN - 11/07/2024 2:18 PM EDTTelephone Encounter - Valentino Tian LPN - 11/07/2024 2:18 PM EDTTelephone Encounter - Carrie Strange MA - 06/13/2024 12:57 PM EST Note Date & Type Note Facility 01-09-2025 Note HNO ID: [id number] Author: ARLINE JAY APRN.WEATHERIZATION AND HOUSING INSPECTOR Service: ? Author Type: Nurse Practitioner Type: Progress Notes Filed: 02/14/2025 11:58 Note Text: 01/09/2025 Patient presents with: Abdominal Pain: Left lower x few weeks Recording using ambient [employer] software for draft documentation of the visit was discussed with the patient/authorized fulfillment representative; all questions welcomed and answered. Patient/authorized fulfillment representative agreed to proceed SUBJECTIVE: This is a 44 year old that is here today for Above Complaints. LLQ Abdominal Pain: - Andrei Link reports a dull, burning pain in the LLQ x3 weeks. - Initially thought to be muscular, but now uncertain. - Pain is constant and slowly worsening; wakes him up at night. - Aggravated by lifting the leg, causing a sensation of tightness. - Andrei denies relief from stretching. - Andrei denies known trauma or injury. - Andrei denies hematochezia, melena, nausea, emesis, fevers, or chills. - Andrei denies changes in bowel habits, constipation, diarrhea, or abnormal weight loss. - Andrei denies dysuria. - Andrei has not undergone a colonoscopy. PAST MEDICAL HISTORY Diagnosis Date Hair loss Hypertension Mixed hyperlipidemia 01/22/[address] Natalie Chicas Overweight (BMI 25.0-29.9) Seasonal allergies spring ALLERGIES Dotarem [Gadoterate Meglumine] MEDICATIONS Current Outpatient Medications Medication Sig lisinopril-hydroCHLOROthiazide (ZESTORETIC) 20-25 mg per tablet Take 1 tablet by mouth every morning. No current facility-administered medications for this visit. Medications and allergies reviewed by this provider. SOCIAL HISTORY SOCIAL HISTORY[1] REVIEW OF SYSTEMS All other reviewed and negative other than HPI. OBJECTIVE: BP 128/86 Pulse 67 Temp 36.5 ?C (97.7 ?F) Wt 90.9 kg (200 lb 6.4 oz) SpO2 96% BMI 27.69 kg/m? . Vital signs reviewed by this provider. APPEARANCE Well appearing, alert, in no acute distress, well-hydrated, well nourished. EYES conjunctiva and sclera normal. HEART RRR with normal S1 and S2, no murmurs, no gallops, no JVD appreciated LUNG clear to auscultation. No wheezes, rhonchi or rales ABDOMEN bowel sounds normoactive, no bruits, soft, non-tender, non-distended, without organomegaly or palpable masses, no tenderness to palpation. No rebound tenderness or guarding SKIN Skin color, texture, turgor normal, no suspicious rashes or lesions to exposed skin to exposed skin Depression Screening Never done Anxiety Screening Never done Hepatitis B Vaccine(1 of 3 - 19+ 3-dose series) Never done HPV Vaccine(1 - 3-dose SCDM series) Never done Influenza Vaccine(1) due on 12/19/2024 Colorectal Cancer Screening due on 12/22/2024 Annual PCP Team Chronic Disease Visit due on 06/06/2025 Diabetes Screening due on 06/07/2027 Lipid Screening due on 06/07/2029 DTaP,Tdap,Td Vaccine(9 - Td or Tdap) due on 03/15/2032 Hepatitis C Screening Completed HIV Screening Discontinued 1. LLQ pain (R10.32) 2. Screening for colon cancer (Z12.11) - Persistent LLQ pain for 3 weeks without red flag symptoms; exam non-tender. - Differential includes muscular etiology, diverticulosis, or other GI pathology; less likely to be diverticulitis given absence of acute symptoms. - Discussed rationale for not pursuing CT at this time due to benign exam and lack of concerning features. - refer to GI as he is due for his screening colonoscopy and the fact he is having LLQ pain- he would not be a candidate for open access colonoscopy due to complaints of pain - Advised patient to seek emergent care if symptoms worsen or if fevers, chills, hematochezia, or melena develop. Arline Podlogar, [employer] INSTALLATION HELPER.WEATHERIZATION AND HOUSING INSPECTOR Prescription instructions reviewed with patient as applicable. Patient advised if symptoms do not improve or if symptoms worsen sooner, to contact their primary care physician. Potential red flag symptoms discussed with the patient. Reviewed appropriate action plan to take if red flag symptoms occur. Patient agreeable to treatment plan. [id number] OVERALL COMPLEXITY Problem Complexity: Moderate Data Level: Straightforward Risk Level: Low Overall MDM complexity (2/3 must be met or exceeded): Low PROBLEMS SECTION: 1. LLQ pain - Undiagnosed new problem with uncertain prognosis 2. Screening for colon cancer - Not applicable One undiagnosed new problem with uncertain prognosis (Moderate complexity) Problem complexity level: Moderate DATA SECTION: - Review of prior external note(s) from each unique source: - Review of the result(s) of each unique test: - Ordering of each unique test: - Assessment requiring an independent historian(s): - Independent interpretation of a test performed by another physician/other qualified health rn patient care: - Discussion of management or test interpretation with external physician/other qualified health rn patient care/appropriate source: D (more content not included)... [facility] 11-07-2024 Telephone encounter Note Prescription Refill Information The patient has been identified by name and date of : Yes Caregiver verified no other encounters exist for this prescription request: Yes Caregiver confirmed with patient/requestor that no other refills are due, in the near future, with this provider at this time: Yes The last office visit in the department: 06/06/24 Does the patient have a future office visit with this provider/department: Yes, 06/07/25 Requested Prescriptions Pending Prescriptions Disp Refills lisinopril-hydroCHLOROthiazide (ZESTORETIC) 20-25 mg per tablet 90 tablet 0 Sig: Take 1 tablet by mouth every morning. Valentino Tian LPN November 07, 2024 2:18 PM [facility] 11-07-2024 Miscellaneous Notes Prescription Refill Information The patient has been identified by name and date of : Yes Caregiver verified no other encounters exist for this prescription request: Yes Caregiver confirmed with patient/requestor that no other refills are due, in the near future, with this provider at this time: Yes The last office visit in the department: 06/06/24 Does the patient have a future office visit with this provider/department: Yes, 06/07/25 Requested Prescriptions Pending Prescriptions Disp Refills lisinopril-hydroCHLOROthiazide (ZESTORETIC) 20-25 mg per tablet 90 tablet 0 Sig: Take 1 tablet by mouth every morning. Valentino Tian LPN November 07, 2024 2:18 PM documented in this encounter [facility] 06-13-2024 Telephone encounter Note Pt notified of results via Stam[employer]. Carrie Strange Ma [facility] 06-13-2024 Miscellaneous Notes Pt notified of results via [employer]. Carrie Strange Ma ----- Message from Arline Jay APRN.WEATHERIZATION AND HOUSING INSPECTOR sent at 06/08/2024 12:27 PM EST ----- Improvement in cholesterol but still borderline elevated. Continue low saturated fat diet and at least 150 minutes of exercise per week. The rest of his blood work is in acceptable ranges. Arline Jay APRN.CNP documented in this encounter [facility] 06-13-2024 Telephone encounter Note ----- Message from Arline Jay APRN.WEATHERIZATION AND HOUSING INSPECTOR sent at 06/08/2024 12:27 PM EST ----- Improvement in cholesterol but still borderline elevated. Continue low saturated fat diet and at least 150 minutes of exercise per week. The rest of his blood work is in acceptable ranges. Arline Jay APRN.WEATHERIZATION AND HOUSING INSPECTOR [facility] 06-06-2024 Note HNO ID: [id number] Author: ARLINE JAY APRN.CNP Service: ? Author Type: Nurse Practitioner Type: Progress Notes Filed: 06/06/2024 12:21 Note Text: 06/06/2024 Patient presents with: Physical SUBJECTIVE: This is a 43 year old that is here today for Above Complaints. HTN: Patient is compliant with meds Yes Monitors bp at home: No. Denies side effects: Yes. Chest pain: No. Dyspnea: No. Edema: No. Palpitations: No. Syncope: No. Headache: No. Dizziness: No. PAST MEDICAL HISTORY Diagnosis Date Hair loss Hypertension Mixed hyperlipidemia 01/22/[address] Natalie Chicas Overweight (BMI 25.0-29.9) Seasonal allergies spring ALLERGIES Dotarem [Gadoterate Meglumine] MEDICATIONS Current Outpatient Medications Medication Sig lisinopril-hydroCHLOROthiazide (ZESTORETIC) 20-25 mg per tablet Take 1 tablet by mouth every morning. No current facility-administered medications for this visit. Medications and allergies reviewed by this provider. SOCIAL HISTORY Social History Tobacco Use Smoking status: Former Current packs/day: 0.00 Average packs/day: 1.5 packs/day for 8.0 years (12.0 ttl pk-yrs) Types: Cigarettes Start date: 04/20/2000 Quit date: 04/20/2008 Years since quittin.1 Smokeless tobacco: Former Types: Chew Quit date: 12/06/2007 Vaping Use Vaping status: Never Used Substance Use Topics Alcohol use: Yes Alcohol/week: 3.0 - 5.0 standard drinks of alcohol Types: 3 - 5 Cans of Beer (12oz) per week Comment: occasionally - 0-5 drinks a week Drug use: No REVIEW OF SYSTEMS GENERAL: No weight loss, malaise or fevers HEENT: Negative for frequent or significant headaches, No changes in hearing or vision, no nose bleeds or other nasal problems NECK: Negative for lumps, goiter, pain and significant neck swelling RESPIRATORY: Negative for cough, hemoptysis, wheezing, COPD, dyspnea or shortness of breath CARDIOVASCULAR: Negative for chest pain, leg swelling, hypertension, CHF or palpitations GI: No nausea, vomiting, or diarrhea : No history of dysuria, frequency or incontinence MUSCULOSKELETAL: Negative for joint pain or swelling, back pain or muscle pain SKIN: Negative for lesions, rash, and itching PSYCH: Negative for sleep disturbance, mood disorder and recent psychosocial stressors HEMATOLOGY/LYMPHOLOGY: Negative for prolonged bleeding, bruising easily or swollen nodes ENDOCRINE: Negative for cold or heat intolerance, polyuria, polydipsia and goiter NEURO: No history of headaches, syncope, paralysis, seizures or tremors All other reviewed and negative other than HPI. OBJECTIVE: BP 136/84 Pulse 78 Resp 16 Ht 181.2 cm (5' 11.34) Wt 93.3 kg (205 lb 11 oz) SpO2 98% BMI 28.42 kg/m? . Vital signs reviewed by this provider. APPEARANCE Well appearing, alert, in no acute distress, well-hydrated, well nourished. EYES PERRLA, conjunctiva and sclera normal. EARS External ears normal, canals clear NECK Supple, no adenopathy; thyroid symmetric, normal size, no bruits HEART RRR with normal S1 and S2, no murmurs, no gallops, no JVD appreciated LUNG clear to auscultation. No wheezes, rhonchi or rales EXTREMITIES Extremities normal, No deformities, No skin discoloration, and No edema SKIN Skin color, texture, turgor normal, no suspicious rashes or lesions to exposed skin Latest Ref Rng 12/07/2023 Protein, Total 6.3 - 8.0 g/dL 7.2 Albumin 3.9 - 4.9 g/dL 4.7 Calcium 8.5 - 10.2 mg/dL 9.7 Bilirubin, Total 0.2 - 1.3 mg/dL 0.4 Alkaline Phosphatase 38 - 113 U/L 49 AST 14 - 40 U/L 33 ALT 10 - 54 U/L 16 Glucose 74 - 99 mg/dL 117 (H) BUN 9 - 24 mg/dL 18 Creatinine 0.73 - 1.22 mg/dL 0.85 Sodium 136 - 144 mmol/L 136 Potassium 3.7 - 5.1 mmol/L 4.3 Chloride 98 - 107 mmol/L 99 CO2 22 - 30 mmol/L 24 Anion Gap 8 - 15 mmol/L 13 eGFR >=60 mL/min/1.73m? 111 Latest Ref Rng 05/12/2023 WBC 3.70 - 11.00 k/uL 7.61 RBC 4.20 - 6.00 m/uL 4.68 Hemoglobin 13.0 - 17.0 g/dL 14.8 Hematocrit 39.0 - 51.0 % 43.4 MCV 80.0 - 100.0 fL 92.7 MCH 26.0 - 34.0 pg 31.6 MCHC 30.5 - 36.0 g/dL 34.1 RDW-CV 11.5 - 15.0 % 12.7 Platelet Count 150 - 400 k/uL 289 MPV 9.0 - 12.7 fL 11.4 Absolute nRBC <0.01 k/uL <0.01 Latest Ref Rng 03/20/2022 Cholesterol, Total <200 mg/dL 288 (H) Triglyceride <150 mg/dL 182 (H) HDL Cholesterol >39 mg/dL 39 (L) Non HDL Cholesterol <130 mg/dL 249 (H) Fasting Time hrs 13 VLDL Cholesterol <30 mg/dL 36 (H) TC:HDL Ratio <5.10 7.38 (H) LDL Cholesterol <100 mg/dL 213 (H) LDL:HDL Ratio <2.54 5.46 (H) Anxiety Screening Never done Hepatitis B Vaccine(1 of 3 - 19+ 3-dose series) Never done BP Controlled (<130/80) due on 01/22/2022 Depression Screening due on 06/06/2024 Influenza Vaccine(1) due on 10/17/2024 Covid-19 Vaccine( season) due on 06/06/2025 Annual PCP Team Chronic Disease Visit due on 06/06/2025 Lipid Screening due on 03/20/2027 DTaP,Tdap,Td (more content not included)... [facility] 06-06-2024 History of Presen t illness Narrative 06/06/2024 Patient presents with: Physical SUBJECTIVE: This is a 43 year old that is here today for Above Complaints. HTN: Patient is compliant with meds Yes Monitors bp at home: No. Denies side effects: Yes. Chest pain: No. Dyspnea: No. Edema: No. Palpitations: No. Syncope: No. Headache: No. Dizziness: No. PAST MEDICAL HISTORY Diagnosis Date Hair loss Hypertension Mixed hyperlipidemia 01/22/[address] Natalie Chicas Overweight (BMI 25.0-29.9) Seasonal allergies spring ALLERGIES Dotarem [Gadoterate Meglumine] MEDICATIONS Current Outpatient Medications Medication Sig lisinopril-hydroCHLOROthiazide (ZESTORETIC) 20-25 mg per tablet Take 1 tablet by mouth every morning. No current facility-administered medications for this visit. Medications and allergies reviewed by this provider. SOCIAL HISTORY Social History Tobacco Use Smoking status: Former Current packs/day: 0.00 Average packs/day: 1.5 packs/day for 8.0 years (12.0 ttl pk-yrs) Types: Cigarettes Start date: 04/20/2000 Quit date: 04/20/2008 Years since quittin.1 Smokeless tobacco: Former Types: Chew Quit date: 12/06/2007 Vaping Use Vaping status: Never Used Substance Use Topics Alcohol use: Yes Alcohol/week: 3.0 - 5.0 standard drinks of alcohol Types: 3 - 5 Cans of Beer (12oz) per week Comment: occasionally - 0-5 drinks a week Drug use: No REVIEW OF SYSTEMS GENERAL: No weight loss, malaise or fevers HEENT: Negative for frequent or significant headaches, No changes in hearing or vision, no nose bleeds or other nasal problems NECK: Negative for lumps, goiter, pain and significant neck swelling RESPIRATORY: Negative for cough, hemoptysis, wheezing, COPD, dyspnea or shortness of breath CARDIOVASCULAR: Negative for chest pain, leg swelling, hypertension, CHF or palpitations GI: No nausea, vomiting, or diarrhea : No history of dysuria, frequency or incontinence MUSCULOSKELETAL: Negative for joint pain or swelling, back pain or muscle pain SKIN: Negative for lesions, rash, and itching PSYCH: Negative for sleep disturbance, mood disorder and recent psychosocial stressors HEMATOLOGY/LYMPHOLOGY: Negative for prolonged bleeding, bruising easily or swollen nodes ENDOCRINE: Negative for cold or heat intolerance, polyuria, polydipsia and goiter NEURO: No history of headaches, syncope, paralysis, seizures or tremors All other reviewed and negative other than HPI. OBJECTIVE: BP 136/84 Pulse 78 Resp 16 Ht 181.2 cm (5' 11.34) Wt 93.3 kg (205 lb 11 oz) SpO2 98% BMI 28.42 kg/m . Vital signs reviewed by this provider. APPEARANCE Well appearing, alert, in no acute distress, well-hydrated, well nourished. EYES PERRLA, conjunctiva and sclera normal. EARS External ears normal, canals clear NECK Supple, no adenopathy; thyroid symmetric, normal size, no bruits HEART RRR with normal S1 and S2, no murmurs, no gallops, no JVD appreciated LUNG clear to auscultation. No wheezes, rhonchi or rales EXTREMITIES Extremities normal, No deformities, No skin discoloration, and No edema SKIN Skin color, texture, turgor normal, no suspicious rashes or lesions to exposed skin Latest Ref Rng 12/07/2023 Protein, Total 6.3 - 8.0 g/dL 7.2 Albumin 3.9 - 4.9 g/dL 4.7 Calcium 8.5 - 10.2 mg/dL 9.7 Bilirubin, Total 0.2 - 1.3 mg/dL 0.4 Alkaline Phosphatase 38 - 113 U/L 49 AST 14 - 40 U/L 33 ALT 10 - 54 U/L 16 Glucose 74 - 99 mg/dL 117 (H) BUN 9 - 24 mg/dL 18 Creatinine 0.73 - 1.22 mg/dL 0.85 Sodium 136 - 144 mmol/L 136 Potassium 3.7 - 5.1 mmol/L 4.3 Chloride 98 - 107 mmol/L 99 CO2 22 - 30 mmol/L 24 Anion Gap 8 - 15 mmol/L 13 eGFR >=60 mL/min/1.73m 111 Latest Ref Rng 05/12/2023 WBC 3.70 - 11.00 k/uL 7.61 RBC 4.20 - 6.00 m/uL 4.68 Hemoglobin 13.0 - 17.0 g/dL 14.8 Hematocrit 39.0 - 51.0 % 43.4 MCV 80.0 - 100.0 fL 92.7 MCH 26.0 - 34.0 pg 31.6 MCHC 30.5 - 36.0 g/dL 34.1 RDW-CV 11.5 - 15.0 % 12.7 Platelet Count 150 - 400 k/uL 289 MPV 9.0 - 12.7 fL 11.4 Absolute nRBC <0.01 k/uL <0.01 Latest Ref Rng 03/20/2022 Cholesterol, Total <200 mg/dL 288 (H) Triglyceride <150 mg/dL 182 (H) HDL Cholesterol >39 mg/dL 39 (L) Non HDL Cholesterol <130 mg/dL 249 (H) Fasting Time hrs 13 VLDL Cholesterol <30 mg/dL 36 (H) TC:HDL Ratio <5.10 7.38 (H) LDL Cholesterol <100 mg/dL 213 (H) LDL:HDL Ratio <2.54 5.46 (H) Anxiety Screening Never done Hepatitis B Vaccine(1 of 3 - 19+ 3-dose series) Never done BP Controlled (<130/80) due on 01/22/2022 Depression Screening due on 06/06/2024 Influenza Vaccine(1) due on 10/17/2024 Covid-19 Vaccine( season) due on 06/06/2025 Annual PCP Team Chronic Disease Visit due on 06/06/2025 Lipid Screening due on 03/20/2027 DTaP,Tdap,Td Vaccine(9 - Td or Tdap) due on 03/15/2032 Hepatitis C Screening Completed HIV Screening Discontinued ASSESSMENT/PLAN: 1. Annual physical exam - ICD9: V70.0, ICD10: Z00.00 (primary diagnosis) - Counseled on healthy diet and regular exercise - Follow up for annual exam in one year - COMPLETE BLOOD COUNT AND DIFFERENTIAL - COMPREHENSIVE METABOLIC PANEL 2. Essential hypertension - ICD9: 401.9, ICD10: I10 - Controlled - Continue current medications - Recommend home blood pressure monitoring, to bring results to next visit - Encouraged sodium restriction, DASH or Mediterranean diet - Recommend regular aerobic exercise - Follow up in one year for hypertension visit - COMPREHENSIVE METABOLIC PANEL 3. Mixed hyperlipidemia - ICD9: 272.2, ICD10: E78.2 - Control undetermined, due for labs - Counseled on healthy diet and regular exercise - Follow up in one year, sooner should any other issues arise. - LIPID PANEL BASIC Arline Jay APRN.[facility] Prescription instructions reviewed with patient as applicable. Patient advised if symptoms do not improve or if symptoms worsen sooner, to contact their primary care physician. Potential red flag symptoms discussed with the patient. Reviewed appropriate action plan to take if red flag symptoms occur. Patient agreeable to treatment plan. documented in this encounter [facility] 06-03-2024 Telephone encounter Note Pt notified via [employer] that he has been scheduled for appt on 06/06/24 at 11:40 AM with Arline Jay. Carrie Strange MA [facility] 06-03-2024 Miscellaneous Notes Pt notified via [employer] that he has been scheduled for appt on 06/06/24 at 11:40 AM with Arline Jay. Carrie Strange MA Rx sent. Please assist with scheduling. Prescription Refill Information The patient has been identified by name and date of : Yes Caregiver verified no other encounters exist for this prescription request: Yes Caregiver confirmed with patient/requestor that no other refills are due, in the near future, with this provider at this time: Yes The last office visit in the department: 12/07/23 Does the patient have a future office visit with this provider/department: No, pt no showed appt on 02/29/24 and cancelled appt on 03/08/24. MC message to pt advising of need to schedule appt. Requested Prescriptions Pending Prescriptions Disp Refills lisinopril-hydroCHLOROthiazide (ZESTORETIC) 20-25 mg per tablet 90 tablet 0 Sig: Take 1 tablet by mouth every morning. Valentino Tian LPN June 01, 2024 9:36 AM documented in this encounter [facility] 06-01-2024 Telephone encounter Note Rx sent. Please assist with scheduling. [facility] 06-01-2024 Telephone encounter Note Prescription Refill Information The patient has been identified by name and date of : Yes Caregiver verified no other encounters exist for this prescription request: Yes Caregiver confirmed with patient/requestor that no other refills are due, in the near future, with this provider at this time: Yes The last office visit in the department: 12/07/23 Does the patient have a future office visit with this provider/department: No, pt no showed appt on 02/29/24 and cancelled appt on 03/08/24. MC message to pt advising of need to schedule appt. Requested Prescriptions Pending Prescriptions Disp Refills lisinopril-hydroCHLOROthiazide (ZESTORETIC) 20-25 mg per tablet 90 tablet 0 Sig: Take 1 tablet by mouth every morning. Valentino Tian LPN June 01, 2024 9:36 AM [facility] 02-29-2024 Telephone encounter Note Offered to assist pt, waiting pt response for 40 min Wellness. Maggy Lester MA [facility] 02-29-2024 Miscellaneous Notes Offered to assist pt, waiting pt response for 40 min Wellness. Maggy Lester MA Notified pt no other appt's available with Team. Asked pt if another day/time works for him. Wait pt response. Maggy Lester MA documented in this encounter [facility] 02-29-2024 Telephone encounter Note Notified pt no other appt's available with Team. Asked pt if another day/time works for him. Wait pt response. Maggy Lester MA [facility] 02-22-2024 Telephone encounter Note Prescription Refill Information The patient has been identified by name and date of : Yes Caregiver verified no other encounters exist for this prescription request: Yes Caregiver confirmed with patient/requestor that no other refills are due, in the near future, with this provider at this time: No The last office visit in the department: 12/07/23 Does the patient have a future office visit with this provider/department: Yes Requested Prescriptions Pending Prescriptions Disp Refills lisinopril-hydroCHLOROthiazide (ZESTORETIC) 20-25 mg per tablet 90 tablet 0 Sig: Take 1 tablet by mouth every morning. Carrie Strange MA February 22, 2024 9:53 AM [facility] 02-22-2024 Miscellaneous Notes Prescription Refill Information The patient has been identified by name and date of : Yes Caregiver verified no other encounters exist for this prescription request: Yes Caregiver confirmed with patient/requestor that no other refills are due, in the near future, with this provider at this time: No The last office visit in the department: 12/07/23 Does the patient have a future office visit with this provider/department: Yes Requested Prescriptions Pending Prescriptions Disp Refills lisinopril-hydroCHLOROthiazide (ZESTORETIC) 20-25 mg per tablet 90 tablet 0 Sig: Take 1 tablet by mouth every morning. Carrie Strange MA February 22, 2024 9:53 AM documented in this encounter [facility] 01-06-2024 History of Presen t illness Narrative Patient presents with: Ear Problem: L ear muffled hearing and crackling, minimal pain x1 week HPI: Feeling left ear symptoms for 1 week. He is getting over a URI. Positive symptoms: Earache, ear popping, decreased hearing improves after ear pops, Nasal Congestion, Negative symptoms: Fever, otorrhea, Sore throat, OTC: Sudafed, Cold Medicine MEDICATIONS: Current Outpatient Medications Medication Sig lisinopril-hydroCHLOROthiazide (ZESTORETIC) 20-25 mg per tablet Take 1 tablet by mouth every morning. No current facility-administered medications for this visit. ALLERGIES: ALLERGIES Allergen Reactions Dotarem [Gadoterate* Hives Mri contrast VITALS: BP 135/82 Pulse 94 Temp 36.4 C (97.6 F) Resp 18 Wt 92.6 kg (204 lb 2.3 oz) SpO2 97% BMI 27.69 kg/m PHYSICAL EXAM: GEN: Pleasant, in no acute distress. HEENT: PERRL, EOMI, conjunctiva clear Ears: canals clear. TMs without erythema, bulge, or effusion. TMJs non-tender Sinuses: non-tender frontal sinus, non-tender maxillary sinuses Throat: moist mucous membranes, no erythema, no exudate Neck: supple, no thyromegaly, no lymphadenopathy HEART: regular rate and rhythm, no murmurs LUNGS: clear to auscultation, no wheezes or crackles, no increased WOB ASSESSMENT/PLAN: 1. Dysfunction of left eustachian tube - ICD9: 381.81, ICD10: H69.92 Reassured of benign ear exam. Continue supportive care for URI associated congestion. Follow up with worsening or persistent symptoms. Jimi Fragoso MD documented in this encounter [facility] 12-08-2023 Telephone encounter Note Phoned patient and reviewed provider's note with him. He asked about his glucose. Asked patient if he was fasting and he stated no. Advised patient this is why it was slightly elevated and if PCP had any concerns with his level he would have ordered additional testing. Patient voiced understanding. Karla Belcher LPN [facility] 12-08-2023 Miscellaneous Notes Phoned patient and reviewed provider's note with him. He asked about his glucose. Asked patient if he was fasting and he stated no. Advised patient this is why it was slightly elevated and if PCP had any concerns with his level he would have ordered additional testing. Patient voiced understanding. Karla Belcher LPN ----- Message from Caty Vanegas MD sent at 12/08/2023 9:46 AM EDT ----- Normal kidney function and potassium level on current regimen. No changes in regimen. documented in this encounter [facility] 12-08-2023 Telephone encounter Note ----- Message from Caty Vanegas MD sent at 12/08/2023 9:46 AM EDT ----- Normal kidney function and potassium level on current regimen. No changes in regimen. [facility] 12-07-2023 History of Presen t illness Narrative Chief Complaint Patient presents with: Blood Pressure: recheck HPI Glenn Link is a 42 year old male who presents here today for Above Complaints.. BP elevated at OV 2 weeks ago with following HPI: Patient states that he ran out of his blood pressure medication about 2 weeks ago. Not checking BP at home on a regular basis when he was on his medication. Denies HTN symptoms including: headache, vision changes, chest pain, SOB, palpitations. States that he sticks to low sodium diet most of the time. Walks his dog for 1 mile 4 times a week with push ups and sit ups. Medication resumed at last OV and BP is improved today. Has only checked BP once at home with reading of 127/79. Denies side effects, hypertension or hypotension symptoms. Past medical history, appointments, medications, allergies reviewed. Previous Medical History PAST MEDICAL HISTORY No date: Hair loss No date: Hypertension 01/22/2021: Mixed hyperlipidemia No date: Numerous skin moles Comment: Dr. Jauregui-Deshaun Chicas No date: Overweight (BMI 25.0-29.9) No date: Seasonal allergies Comment: spring Previous Surgical History PAST SURGICAL HISTORY 1999: EXTRACTION, ERUPTED TOOTH OR EXPOSED ROOT (ELEVATION AND/OR FORCEPS REMOVAL) 2015: FOOT LEFT OP SURGERY; Left Comment: Dr. Miranda. Cyst removal 2023: LIPOMA (LARGE) Family History FAMILY HISTORY Problem Relation Age of Onset No Known Problems Mother Diabetes Father Hypertension Father Coronary Artery Disease Father 65 [place] Heart Attack Father No Known Problems Brother No Known Problems Brother No Known Problems Maternal Grandmother Hypertension Paternal Grandmother Heart Paternal Grandmother [place] x 6; CABG, stents Cancer Paternal Grandfather Leukemia No Known Problems Daughter No Known Problems Daughter No Known Problems Daughter No Known Problems Son Seizures Maternal Uncle Patient Allergies ALLERGIES Allergen Reactions Dotarem [Gadoterate* Hives Mri contrast Current Medications Current Outpatient Medications on File Prior to Visit Medication Sig lisinopril-hydroCHLOROthiazide (ZESTORETIC) 20-25 mg per tablet Take 1 tablet by mouth every morning. No current facility-administered medications on file prior to visit. Social History Social History Tobacco Use Smoking status: Former Current packs/day: 0.00 Average packs/day: 1.5 packs/day for 8.0 years (12.0 ttl pk-yrs) Types: Cigarettes Start date: 04/20/2000 Quit date: 04/20/2008 Years since quittin.6 Smokeless tobacco: Former Types: Chew Quit date: 12/06/2007 Vaping Use Vaping status: Never Used Substance Use Topics Alcohol use: Yes Alcohol/week: 3.0 - 5.0 standard drinks of alcohol Types: 3 - 5 Cans of Beer (12oz) per week Comment: occasionally - 0-5 drinks a week Drug use: No Review of Symptoms REVIEW OF SYSTEMS GENERAL: No weight loss, malaise or fevers RESPIRATORY: Negative for cough, hemoptysis, wheezing, COPD, dyspnea or shortness of breath CARDIOVASCULAR: Negative for chest pain, leg swelling, hypertension, CHF or palpitations EXAM: BP 128/74 Pulse 85 Resp 16 Wt 92.4 kg (203 lb 9.9 oz) SpO2 96% BMI 27.62 kg/m General Appearance: Well appearing, alert, in no acute distress, well-hydrated, well nourished. Skin: Skin color, texture, turgor normal, no suspicious rashes or lesions. Lungs: Lungs clear to auscultation. No wheezing, rhonchi, rales.. Heart: RRR without murmur, gallop, or rubs. No ectopy. Extremities: No deformities, edema, skin discoloration, clubbing or cyanosis. Good capillary refill. Health Maintenance List Depression Screening Never done Anxiety Screening Never done Hepatitis B Vaccine(1 of 3 - 19+ 3-dose series) Never done BP Controlled (<130/80) due on 01/22/2022 Covid-19 Vaccine( - 2022- season) due on 04/17/2024 Influenza Vaccine(1) due on 12/20/2023 Annual PCP Team Chronic Disease Visit due on 11/22/2024 Lipid Screening due on 03/20/2027 DTaP,Tdap,Td Vaccine(9 - Td or Tdap) due on 03/15/2032 Hepatitis C Screening Completed HPV Vaccine Aged Out HIV Screening Discontinued ASSESSMENT/PLAN: 1. Essential hypertension - ICD9: 401.9, ICD10: I10 - Controlled - Continue current medications - Recommend home blood pressure monitoring, to bring results to next visit - Encouraged sodium restriction, DASH or Mediterranean diet - Recommend regular aerobic exercise - COMPREHENSIVE METABOLIC PANEL Caty Vanegas MD documented in this encounter [facility] 11-23-2023 History of Presen t illness Narrative Chief Complaint Patient presents with: Follow Up: BP - out of BP medication x 2 weeks HPI Glenn Link is a 42 year old male who presents here today for Above Complaints. Patient states that he ran out of his blood pressure medication about 2 weeks ago. Not checking BP at home on a regular basis when he was on his medication. Denies HTN symptoms including: headache, vision changes, chest pain, SOB, palpitations. States that he sticks to low sodium diet most of the time. Walks his dog for 1 mile 4 times a week with push ups and sit ups. Past medical history, appointments, medications, allergies reviewed. Previous Medical History PAST MEDICAL HISTORY No date: Hair loss No date: Hypertension 01/22/2021: Mixed hyperlipidemia No date: Numerous skin moles Comment: Dr. Jauregui-Deshaun Chicas No date: Overweight (BMI 25.0-29.9) No date: Seasonal allergies Comment: spring Previous Surgical History PAST SURGICAL HISTORY 1999: EXTRACTION, ERUPTED TOOTH OR EXPOSED ROOT (ELEVATION AND/OR FORCEPS REMOVAL) 2015: FOOT LEFT OP SURGERY; Left Comment: Dr. Miranda. Cyst removal 2023: LIPOMA (LARGE) Family History FAMILY HISTORY Problem Relation Age of Onset No Known Problems Mother Diabetes Father Hypertension Father Coronary Artery Disease Father 65 [place] Heart Attack Father No Known Problems Brother No Known Problems Brother No Known Problems Maternal Grandmother Hypertension Paternal Grandmother Heart Paternal Grandmother [place] x 6; CABG, stents Cancer Paternal Grandfather Leukemia No Known Problems Daughter No Known Problems Daughter No Known Problems Daughter No Known Problems Son Seizures Maternal Uncle Patient Allergies ALLERGIES Allergen Reactions Dotarem [Gadoterate* Hives Mri contrast Current Medications Current Outpatient Medications on File Prior to Visit Medication Sig lisinopril-hydroCHLOROthiazide (PRINZIDE, ZESTORETIC) 20-25 mg per tablet Take 1 tablet by mouth every morning. No current facility-administered medications on file prior to visit. Social History Social History Tobacco Use Smoking status: Former Packs/day: 1.50 Years: 8.00 Additional pack years: 0.00 Total pack years: 12.00 Types: Cigarettes Quit date: 04/20/2008 Years since quittin.6 Smokeless tobacco: Former Types: Chew Quit date: 12/06/2007 Vaping Use Vaping Use: Never used Substance Use Topics Alcohol use: Yes Alcohol/week: 3.0 - 5.0 standard drinks of alcohol Types: 3 - 5 Cans of Beer (12oz) per week Comment: occasionally - 0-5 drinks a week Drug use: No Review of Symptoms REVIEW OF SYSTEMS GENERAL: No weight loss, malaise or fevers RESPIRATORY: Negative for cough, hemoptysis, wheezing, COPD, dyspnea or shortness of breath CARDIOVASCULAR: Negative for chest pain, leg swelling, hypertension, CHF or palpitations GI: No nausea, vomiting, or diarrhea SKIN: Negative for lesions, rash, and itching EXAM: BP 158/88 Pulse 95 Resp 16 Wt 94.4 kg (208 lb 1.8 oz) SpO2 97% BMI 28.23 kg/m General Appearance: Well appearing, alert, in no acute distress, well-hydrated, well nourished.. Skin: Skin color, texture, turgor normal, no suspicious rashes or lesions. Lungs: Lungs clear to auscultation. No wheezing, rhonchi, rales.. Heart: RRR without murmur, gallop, or rubs. No ectopy. Abdomen: Normal abdominal exam, Abdomen soft, non-tender. Bowel sounds normal. No masses, organomegaly. Extremities: No deformities, edema, skin discoloration, clubbing or cyanosis. Good capillary refill. Health Maintenance List Depression Screening Never done Anxiety Screening Never done Hepatitis B Vaccine(1 of 3 - 19+ 3-dose series) Never done BP Controlled (<130/80) due on 01/22/2022 Covid-19 Vaccine(2022- season) due on 04/17/2024 Influenza Vaccine(1) due on 12/20/2023 Annual PCP Team Chronic Disease Visit due on 04/17/2024 Lipid Screening due on 03/20/2027 DTaP,Tdap,Td Vaccine(9 - Td or Tdap) due on 03/15/2032 Hepatitis C Screening Completed HPV Vaccine Aged Out HIV Screening Discontinued ASSESSMENT/PLAN: 1. Essential hypertension - ICD9: 401.9, ICD10: I10 - Uncontrolled - Start lisinopril/HCTZ - Recommend home blood pressure monitoring, to bring results to next visit - Encouraged sodium restriction, DASH or Mediterranean diet - Recommend regular aerobic exercise - Follow up in 2 weeks for hypertension visit - LISINOPRIL 20 MG-HYDROCHLOROTHIAZIDE 25 MG TABLET Caty Vanegas MD documented in this encounter [facility] 11-06-2023 History of Presen t illness Narrative Radiology Service Progress Note PATIENT NAME: Glenn Link DATE OF SERVICE: November 06, 2023 TIME: 2:34 PM PATIENT IDENTITY VERIFICATION COMPLETED USING TWO (2) IDENTIFIERS: Name and Date of confirmed by patient verbally. FALL SCREENING: Has the patient had 2 falls in the last year or 1 fall with injury or currently using an Ambulatory Assistive Device (Walker, Cane, Wheelchair, Crutches, etc.)? No PATIENT GENDER DATA: Male PATIENT RELEVANT IMPLANT DATA REVIEWED: Yes PATIENT PRESENTS WITH AN IMPLANTABLE OR ATTACHED LOGISTICS ENGINEERING MANAGER: No RADIOLOGY DEPARTMENT: General X-ray: Exam(s) Completed: Chest X-Ray PERIPHERAL IV DATA: Not applicable SIGNED BY: RT Sylwia(R) November 06, 2023 2:34 PM documented in this encounter [facility] 11-06-2023 History of Presen t illness Narrative Subjective HPI Glenn Link is a 42 year old male who presents today with chief complaints of cough, chills, fever, and sore neck. He states symptoms started yesterday and have since progressed. He has associated SOB with exertion and mild dizziness this morning at home - in office his HR is noted to be 124. Recent sick exposure - son has pneumonia x 2 weeks and has been on two antibiotic courses. He has tried OTC tylenol with minimal improvement. He denies palpitations, chest pain, pleuritic pain, sore throat, nausea, vomiting, or diarrhea. PAST MEDICAL HISTORY Diagnosis Date Hair loss Hypertension Mixed hyperlipidemia 01/22/[address] Jauregui-Deshaun Chicas Overweight (BMI 25.0-29.9) Seasonal allergies spring PAST SURGICAL HISTORY Procedure Laterality Date EXTRACTION, ERUPTED TOOTH OR EXPOSED ROOT (ELEVATION AND/OR FORCEPS REMOVAL) 1999 FOOT LEFT OP SURGERY Left 2015 Dr. Miranda. Cyst removal LIPOMA (LARGE) 2023 ALLERGIES Dotarem [Gadoterate Meglumine] MEDICATIONS lisinopril-hydroCHLOROthiazide (PRINZIDE, ZESTORETIC) 20-25 mg per tablet Take 1 tablet by mouth every morning. FAMILY HISTORY Problem Relation Age of Onset No Known Problems Mother Diabetes Father Hypertension Father Coronary Artery Disease Father 65 [place] Heart Attack Father No Known Problems Brother No Known Problems Brother No Known Problems Maternal Grandmother Hypertension Paternal Grandmother Heart Paternal Grandmother [place] x 6; CABG, stents Cancer Paternal Grandfather Leukemia No Known Problems Daughter No Known Problems Daughter No Known Problems Daughter No Known Problems Son Seizures Maternal Uncle Social History Tobacco Use Smoking status: Former Packs/day: 1.50 Years: 8.00 Additional pack years: 0.00 Total pack years: 12.00 Types: Cigarettes Quit date: 04/20/2008 Years since quittin.5 Smokeless tobacco: Former Types: Chew Quit date: 12/06/2007 Vaping Use Vaping Use: Never used Substance Use Topics Alcohol use: Yes Alcohol/week: 3.0 - 5.0 standard drinks of alcohol Types: 3 - 5 Cans of Beer (12oz) per week Comment: occasionally - 0-5 drinks a week Drug use: No Review of Systems Constitutional: Positive for chills, fatigue and fever. HENT: Positive for congestion. Negative for sinus pressure, sinus pain and sore throat. Respiratory: Positive for cough and shortness of breath. Negative for chest tightness, wheezing and stridor. Dyspnea on exertion. Cardiovascular: Negative for chest pain and palpitations. Gastrointestinal: Negative for diarrhea, nausea and vomiting. Musculoskeletal: Positive for myalgias and neck pain. No reduced ROM of neck Neurological: Positive for dizziness. Negative for syncope. Objective There were no vitals taken for this visit. Physical Exam HENT: Right Ear: Tympanic membrane normal. Left Ear: Tympanic membrane normal. Mouth/Throat: Mouth: Mucous membranes are moist. Pharynx: Oropharynx is clear. Cardiovascular: Rate and Rhythm: Regular rhythm. Tachycardia present. Pulses: Normal pulses. Heart sounds: Normal heart sounds. Pulmonary: Effort: Pulmonary effort is normal. Breath sounds: Normal breath sounds. Comments: Dyspnea on exertion Musculoskeletal: Cervical back: Tenderness present. Normal range of motion. Lymphadenopathy: Cervical: Cervical adenopathy present. Skin: General: Skin is warm and dry. Neurological: General: No focal deficit present. Mental Status: He is alert. Psychiatric: Mood and Affect: Mood normal. Assessment and Plan ASSESSMENT/PLAN: 1. Acute cough - ICD9: 786.2, ICD10: R05.1 (primary diagnosis) - exposure to son who recently was treated with amoxicillin and azithromycin for pneumonia - XR CHEST 2V FRONTAL/LAT 2. Bacterial pneumonia - ICD9: 482.9, ICD10: J15.9 - Right middle lobe pneumonia on CXR - Azithromycin 500 mg x 1 day then 250 mg x 4 days by mouth - recommend supportive OTC medications as needed for pain/fever - recommend increasing fluid intake as tolerated - if symptoms continue to progress or do not improve with antibiotic recommend follow up with PCP. JOSE RAUL Molina-student Supervising provider was present and guided the care of the patient for the entire session on this date. All documentation was reviewed and agreed upon. 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 Staffing STEEL LOADER: Kandrac, Anamaria, [employer] FLOOR INSTALLATION HELPER.STEEL LOADER Performed by: STEEL LOADER Indications and Patient Condition Indications for airway management: anesthesia Preoxygenated: yes anesthesia circuit Patient position: sniffing Method: asleep Final Airway Details Final airway type: supraglottic airway Number of attempts at approach: 1 Final Supraglottic Airway: i-gel Size 4 Seal Adequate: yes SIGNATURE: Anamaria Yoder APRN.STEEL LOADER PATIENT NAME: Glenn Link DATE: May 20, 2023 TIME: 12:32 PM CSN: [id number] [facility] 04-17-2023 History of Presen t illness Narrative Radiology Service Progress Note PATIENT NAME: Glenn Link DATE OF SERVICE: April 17, 2023 TIME: 1:03 PM PATIENT IDENTITY VERIFICATION COMPLETED USING TWO (2) IDENTIFIERS: Name and Date of confirmed by patient verbally. FALL SCREENING: Has the patient had 2 falls in the last year or 1 fall with injury or currently using an Ambulatory Assistive Device (Walker, Cane, Wheelchair, Crutches, etc.)? No PATIENT GENDER DATA: Male PATIENT RELEVANT IMPLANT DATA REVIEWED: Yes RADIOLOGY DEPARTMENT: General X-ray: Exam(s) Completed: Spine X-Ray(s): Lumbar AP / LAT / L5-S1 PERIPHERAL IV DATA: Not applicable SIGNED BY: RT Abner(R) April 17, 2023 1:03 PM documented in this encounter [facility] 03-07-2023 Telephone encounter Note Kamla check to make sure I did this appropriately if I did not respond if I did do not [facility] Work Phone: 03-07-2023 Miscellaneous Notes Kamla check to make sure I did this appropriately if I did not respond if I did do not 05/20/2023 EXCISION INTRAMUSCULAR LIPOMA LEFT FLANK ROBERTSON Dr. Damon please place surgical order to finish building surgery case for patient Chrissy Temple Calculus Tutor documented in this encounter [facility] 03-06-2023 Miscellaneous Notes Addended by: AJAY DAMON on: 03/06/2023 04:04 PM Modules accepted: Orders documented in this encounter [facility] 03-06-2023 History of Presen t illness Narrative HISTORY AND PHYSICAL Glenn Link 1980 REFERRING PHYSICIAN: Caty Vanegas,* CHIEF COMPLAINT: Consult (Consultation upper back/left arm area. ) HPI: The patient is a 42 year old male with a complaint of Patient complaining of large lump on left upper back which he first noticed 2 months ago. Does not think it has changed in size recently. Denies pain, fever/chills, drainage, similar lumps. Deep to the left serratus muscle and medial to the trapezius along the left posterolateral chest wall there is a fat density mass with thin internal septations. This measures 8.8 x 3.7 x 12 cm. There is no associated enhancing component. There is no adjacent abnormality of the ribs. No bone marrow signal abnormality. The patient is being seen by me today at the request of Dr. Caty Vanegas MD for my opinion and advice regarding Intramuscular lipoma (primary encounter diagnosis). PAST MEDICAL HISTORY Diagnosis Date Hair loss Hypertension Mixed hyperlipidemia 01/22/[address] Jauregui-Deshaun Chicas Overweight (BMI 25.0-29.9) Seasonal allergies spring PAST SURGICAL HISTORY Procedure Laterality Date EXTRACTION, ERUPTED TOOTH OR EXPOSED ROOT (ELEVATION AND/OR FORCEPS REMOVAL) 2000 FOOT LEFT OP SURGERY Left 2014 Dr. Miranda. Cyst removal Current Outpatient Medications Medication Sig predniSONE (DELTASONE) 50 mg Take 50 mg at 13, 7, and 1 hour prior to contrast administration. diphenhydrAMINE HCL 50 mg tablet Take 50 mg oral 1 hour prior to contrast administration. atorvastatin (LIPITOR) 80 mg tablet Take 1 tablet by mouth daily at bedtime. For cholesterol. lisinopril-hydroCHLOROthiazide (PRINZIDE, ZESTORETIC) 20-25 mg per tablet Take 1 tablet by mouth every morning. finasteride (PROPECIA,PROSCAR) 1 mg tablet Take 1 tablet by mouth once daily. (Patient not taking: Reported on 02/13/2023) minoxidil oral liquid 1 mg/mL (CPD) Take 5 mL by mouth once daily. (Patient not taking: Reported on 02/13/2023) No current facility-administered medications for this visit. ALLERGIES: Dotarem [Gadoterate Meglumine] PERSONAL HISTORY: Social History Tobacco Use Smoking status: Former Packs/day: 1.50 Years: 8.00 Additional pack years: 0.00 Total pack years: 12.00 Types: Cigarettes Quit date: 04/20/2008 Years since quittin.8 Smokeless tobacco: Former Types: Chew Quit date: 12/06/2007 Vaping Use Vaping Use: Never used Substance Use Topics Alcohol use: Yes Alcohol/week: 7.5 - 12.5 standard drinks of alcohol Types: 3 - 5 Cans of Beer (12oz) per week Comment: occasionally Drug use: No FAMILY HISTORY: FAMILY HISTORY Problem Relation Age of Onset No Known Problems Mother Diabetes Father Hypertension Father Coronary Artery Disease Father 65 [place] Heart Attack Father No Known Problems Brother No Known Problems Brother No Known Problems Maternal Grandmother Hypertension Paternal Grandmother Heart Paternal Grandmother [place] x 6; CABG, stents Cancer Paternal Grandfather Leukemia No Known Problems Daughter No Known Problems Daughter No Known Problems Daughter No Known Problems Son Seizures Maternal Uncle REVIEW OF SYMPTOMS: The review of systems data was entered by the nurse and reviewed by tx Nursing Notes: Ira Crowe RN 03/05/2023 3:59 PM Signed REVIEW OF SYSTEMS: General: The patient denies fatigue, denies weight loss, denies weight gain, denies feeling hot, and denies feelings of cold. Eyes: The patient denies glaucoma, denies eye injury/surgery, does not wear glasses or contacts. Ear/Nose/Throat: The patient denies allergies, denies hayfever, denies ear infections, and denies bloody noses. Cardiovascular: The patient denies chest pain, denies heart disease, NOTES high blood pressure,denies cardiac stent, denies prior heart attack, denies irregular heart beat, denies high cholesterol, denies poor circulation, denies heart failure, other cardiac issues, denies claudication, denies cold feet, denies peripheral arterial stent. Respiratory: The patient denies tuberculosis, denies pneumonia, denies frequent cough, denies pulmonary embolism, denies shortness of breath, and denies coughing up blood. Gastrointestinal: The patient denies difficulty swallowing, denies acid reflux, denies ulcers, denies vomiting, denies jaundice/hepatitis, denies gallbladder problems, denies black or tarry stools, denies hemorrhoids, denies bleeding from rectum, denies diverticulitis, denies constipation, denies diarrhea, denies loss of stool control, and denies hernias. Kidney/Bladder: The patient denies kidney stones, denies urine infections, and denies bloody urine. Skin: The patient denies a history of skin cancer, denies bleeding/changing moles, and denies a history of skin rash. Neurologic: The patient denies a history of epilepsy/convulsions, denies headaches, denies head/spinal injuries, and denies stroke/TIA. Psychiatric: The patient denies psychiatric medications, denies depression, and denies voices, denies substance abuse. Endocrine: The patient denies thyroid disorders, denies diabetes, and denies hormonal problems. Hematologic: The patient denies a history of bruising, denies bleeding, and denies anemia, denies blood clots. Infections: The patient denies a history of measles and mumps, denies rheumatic fever, and denies sexually transmitted diseases. Musculoskeletal: The patient denies back pain/injury, denies back problems, denies sciatica, denies knee/foot trouble, denies arthritis, or denies gout. When was patient's last Mammogram screening? N/A Last Colonoscopy: None Ira Crowe RN PHYSICAL EXAMINATION: General: The patient is 42 year old male, well nourished, well hydrated in no acute distress. The patient is oriented to time, place, and person. VITALS: Blood pressure 132/84, pulse 83, temperature 36.6 C (97.8 F), height 182.9 cm (6'), weight 96.1 kg (211 lb 12.8 oz), SpO2 100 %. HEENT: Normal cephalic, ataumatic, pupils are equally round, sclera are anicteric, mucous membranes are moist, oropharynx is clear. Neck has no masses, asymmetry or lymphadenopathy. Thyroid is unremarkable. Respiratory: Clear to auscultation and percussion. Normal respiratory excursion and pattern. Cardiac: Examination is regular rate and rhythm. Abdominal exam: Soft, nontender, with no palpable masses. No hepatosplenomegaly. No palpable hernias. Rectal exam: exam deferred Extremities: no clubbing, cyanosis or edema. No adenopathy. Other: LABORATORY VALUES: As Noted RADIOLOGIC STUDIES: As Noted Assessment IMPRESSION: Intramuscular lipoma (primary encounter diagnosis) PLAN: I am going to take him to surgery and remove this intramuscular lipoma in the OR. Patient understands that the lipoma could recur. The planned surgical procedure was discussed extensively with the patient. The risks, benefits, anticipated outcomes and possible complications were mentioned. My staff has also explained the procedure in understandable terms and the patient was given the option to take printed material concerning the planned procedure. The patient had the opportunity to ask questions concerning the planned procedure. The patient freely consents to the planned procedure. Diagnoses: (D17.9) Intramuscular lipoma (primary encounter diagnosis) My findings have been communicated to Dr. Caty Vanegas MD via shared medical record. This note will be forwarded to Dr. Caty Vanegas MD. Return to Clinic: The patient is instructed to follow-up with me 1 week post operatively. Anticipated Surgical Procedure/ CPT Code: Mass - Back and Flank - Subfascial >5cm - 00556 Anticipated Anesthetic: General Patient weight: Blood pressure 132/84, pulse 83, temperature 36.6 C (97.8 F), height 182.9 cm (6'), weight 96.1 kg (211 lb 12.8 oz), SpO2 100 %. BMI: Body mass index is 28.73 kg/m . 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 Ajay Damon III, MD documented in this encounter [facility] 03-05-2023 Telephone encounter Note 05/20/2023 EXCISION INTRAMUSCULAR LIPOMA LEFT FLANK MARCELO Damon please place surgical order to finish building surgery case for patient Chrissy Temple Calculus Tutor [facility] 03-05-2023 Nurse Note REVIEW OF SYSTEMS: General: The patient denies fatigue, denies weight loss, denies weight gain, denies feeling hot, and denies feelings of cold. Eyes: The patient denies glaucoma, denies eye injury/surgery, does not wear glasses or contacts. Ear/Nose/Throat: The patient denies allergies, denies hayfever, denies ear infections, and denies bloody noses. Cardiovascular: The patient denies chest pain, denies heart disease, NOTES high blood pressure,denies cardiac stent, denies prior heart attack, denies irregular heart beat, denies high cholesterol, denies poor circulation, denies heart failure, other cardiac issues, denies claudication, denies cold feet, denies peripheral arterial stent. Respiratory: The patient denies tuberculosis, denies pneumonia, denies frequent cough, denies pulmonary embolism, denies shortness of breath, and denies coughing up blood. Gastrointestinal: The patient denies difficulty swallowing, denies acid reflux, denies ulcers, denies vomiting, denies jaundice/hepatitis, denies gallbladder problems, denies black or tarry stools, denies hemorrhoids, denies bleeding from rectum, denies diverticulitis, denies constipation, denies diarrhea, denies loss of stool control, and denies hernias. Kidney/Bladder: The patient denies kidney stones, denies urine infections, and denies bloody urine. Skin: The patient denies a history of skin cancer, denies bleeding/changing moles, and denies a history of skin rash. Neurologic: The patient denies a history of epilepsy/convulsions, denies headaches, denies head/spinal injuries, and denies stroke/TIA. Psychiatric: The patient denies psychiatric medications, denies depression, and denies voices, denies substance abuse. Endocrine: The patient denies thyroid disorders, denies diabetes, and denies hormonal problems. Hematologic: The patient denies a history of bruising, denies bleeding, and denies anemia, denies blood clots. Infections: The patient denies a history of measles and mumps, denies rheumatic fever, and denies sexually transmitted diseases. Musculoskeletal: The patient denies back pain/injury, denies back problems, denies sciatica, denies knee/foot trouble, denies arthritis, or denies gout. When was patient's last Mammogram screening? N/A Last Colonoscopy: None Ira Crowe RN documented in this encounter [facility] 02-16-2023 History of Presen t illness Narrative Scan on 02/16/2023 8:19 AM by Provider, TERESA Walker: Miscellaneous Lab documented in this encounter [facility] 02-13-2023 History of Presen t illness Narrative Chief Complaint Patient presents with: Derm Problem: Possible cyst on back x 2 months. Denies pain or redness. HPI Glenn Link is a 42 year old male who presents here today for Above Complaints.. Patient complaining of large lump on left upper back which he first noticed 2 months ago. Does not think it has changed in size recently. Denies pain, fever/chills, drainage, similar lumps. Past medical history, appointments, medications, allergies reviewed. Previous Medical History PAST MEDICAL HISTORY Diagnosis Date Hair loss Hypertension Mixed hyperlipidemia 01/22/[address] Natalie Chicas Overweight (BMI 25.0-29.9) Seasonal allergies spring Previous Surgical History PAST SURGICAL HISTORY Procedure Laterality Date EXTRACTION, ERUPTED TOOTH OR EXPOSED ROOT (ELEVATION AND/OR FORCEPS REMOVAL) 2000 FOOT LEFT OP SURGERY Left 2014 Dr. Miranda. Cyst removal Family History FAMILY HISTORY Problem Relation Age of Onset No Known Problems Mother Diabetes Father Hypertension Father Coronary Artery Disease Father 65 [place] Heart Attack Father No Known Problems Brother No Known Problems Brother No Known Problems Maternal Grandmother Hypertension Paternal Grandmother Heart Paternal Grandmother [place] x 6; CABG, stents Cancer Paternal Grandfather Leukemia No Known Problems Daughter No Known Problems Daughter No Known Problems Daughter No Known Problems Son Seizures Maternal Uncle Patient Allergies ALLERGIES Allergen Reactions Dotarem [Gadoterate* Hives Mri contrast Current Medications Current Outpatient Medications on File Prior to Visit Medication Sig lisinopril-hydroCHLOROthiazide (PRINZIDE, ZESTORETIC) 20-25 mg per tablet Take 1 tablet by mouth every morning. atorvastatin (LIPITOR) 80 mg tablet Take 1 tablet by mouth daily at bedtime. For cholesterol. finasteride (PROPECIA,PROSCAR) 1 mg tablet Take 1 tablet by mouth once daily. (Patient not taking: Reported on 02/13/2023) minoxidil oral liquid 1 mg/mL (CPD) Take 5 mL by mouth once daily. (Patient not taking: Reported on 02/13/2023) No current facility-administered medications on file prior to visit. Social History Social History Tobacco Use Smoking status: Former Packs/day: 1.50 Years: 8.00 Additional pack years: 0.00 Total pack years: 12.00 Types: Cigarettes Quit date: 04/20/2008 Years since quittin.8 Smokeless tobacco: Former Types: Chew Quit date: 12/06/2007 Vaping Use Vaping Use: Never used Substance Use Topics Alcohol use: Yes Alcohol/week: 7.5 - 12.5 standard drinks of alcohol Types: 3 - 5 Cans of Beer (12oz) per week Comment: occasionally Drug use: No Review of Symptoms REVIEW OF SYSTEMS See HPI EXAM: BP 142/88 Pulse 89 Resp 16 Wt 97.2 kg (214 lb 3.2 oz) SpO2 95% BMI 29.59 kg/m General Appearance: Well appearing, alert, in no acute distress, well-hydrated, well nourished.. Skin: Skin color, texture, turgor normal, no suspicious rashes or lesions. Musculoskeletal: approximately 15 x 19 cm soft mass on left upper back near left axilla. Mobile. Non tender. No fluctuance or erythema. No drainage. . Lymph Nodes: No cervical lymphadenopathy, No supraclavicular lymphadenopathy, and No axillary lymphadenopathy.. Health Maintenance List BP Controlled (<130/80) due on 01/22/2022 Depression Assessment due on 04/20/2022 Influenza Vaccine(1) due on 12/19/2022 Covid-19 Vaccine( season) due on 12/19/2022 Hepatitis B Vaccine(1 of 3 - 3-dose series) due on 03/15/2023 Annual PCP Team Chronic Disease Visit due on 03/15/2023 Lipid Screening due on 03/20/2027 DTaP,Tdap,Td Vaccine(9 - Td or Tdap) due on 03/15/2032 Hepatitis C Screening Completed HPV Vaccine Aged Out HIV Screening Discontinued ASSESSMENT/PLAN: 1. Mass on back - ICD9: 782.2, ICD10: R22.2 (primary diagnosis) Large mass which is concerning for possible osteosacrcoma vs lipoma. Will obtain MRI HA and premedicate with prednisone and benadryl as ordered due to his history of hives and itching after gadoterate meglumine dye in the past. Patient denies anaphylaxis with dye. Will call with results. - MRI CHEST WALL/RIB WO/W IVCON LEFT - IV CONTRAST (RADIOLOGY PROCEDURE) 2. Localized swelling, mass and lump, trunk - ICD9: [id number], ICD10: R22.2 See above. - MRI CHEST WALL/RIB WO/W IVCON LEFT - IV CONTRAST (RADIOLOGY PROCEDURE) 3. Contrast media allergy - ICD9: V15.08, ICD10: Z91.041 See above. - PREDNISONE 50 MG TABLET - DIPHENHYDRAMINE 50 MG TABLET Caty Vanegas MD documented in this encounter [facility] 05-21-2022 Instructions Antoinette Lang MD - 05/21/2022 10:07 AM EST Allergy skin test completed to penicillin were negative. You took a dose of amoxicillin and tolerated this without adverse reaction. You are at low risk for a severe, immediate allergic or anaphylactic reaction to penicillin and other penicillin type antibiotics. Skin tests and oral challenge are unreliable for predicting delayed reactions. documented in this encounter [facility] 05-21-2022 History of Presen t illness Narrative This is a consultation requested by Dr. Vanegas for an allergy and immunology evaluation. My final recommendations will be communicated back to the requesting healthcare provider(s) by way of shared medical record or via [place] mail. Glenn Link is a 41 year old male who presents for further evaluation of possible penicillin allergy. He had a reaction to a penicillin antibiotic as a child. Details of the reaction are unknown. Denies subsequent use of penicillin products. He has a dental implant that has become infected. His dentist would like to treat with a penicillin type antibiotic if possible. He notes nasal congestion, sneezing, rhinorrhea and itchy and watery eyes in late summer. Symptoms are worse after mowing. He takes Claritin as needed with good control of his symptoms. REVIEW OF SYSTEMS: SINUSITIS: The patient does not suffer from frequent sinopulmonary infections. ASTHMA: The patient has no history of asthma. ECZEMA: The patient has no history of eczema. URTICARIA:The patient does not have a history of urticaria and/or angioedema. GERD: The patient does not have a history of GERD. INSECT STING: The patient does not have a history of systemic reaction to insect sting. FOOD ALLERGY:The patient denies history of food allergy. LATEX: The patient does not have a history of adverse reaction to latex. All other review of systems negative except for those listed above. PAST MEDICAL HISTORY Diagnosis Date Hair loss Hypertension Mixed hyperlipidemia 01/22/[address] Jauregui-Deshaun Chicas Overweight (BMI 25.0-29.9) Seasonal allergies spring MEDICATIONS: atorvastatin (LIPITOR) 80 mg tablet Take 1 tablet by mouth daily at bedtime. For cholesterol. lisinopril-hydroCHLOROthiazide (PRINZIDE, ZESTORETIC) 20-25 mg per tablet Take 1 tablet by mouth every morning. finasteride (PROPECIA,PROSCAR) 1 mg tablet Take 1 tablet by mouth once daily. minoxidil oral liquid 1 mg/mL (CPD) Take 5 mL by mouth once daily. ALLERGIES: Allergies As of Date: 05/21/2022 Allergen Noted Reaction DOTAREM [GADOTERATE MEGLUMINE] 12/15/2014 Hives PENICILLINS 01/11/2008 Fully Assessed 05/21/2022 PAST SURGICAL HISTORY Procedure Laterality Date EXTRACTION, ERUPTED TOOTH OR EXPOSED ROOT (ELEVATION AND/OR FORCEPS REMOVAL) 2000 FOOT LEFT OP SURGERY Left 2015 Dr. Miranda. Cyst removal FAMILY HISTORY: Allergic rhinitis:no. Asthma: no. Eczema: no. Cystic fibrosis: no. Immunodeficiency: no. SOCIAL HISTORY: Employer And Job Title: [employer] Years Of Education Completed: Not specified Marital Status: to Brianda with 3 children Social History Tobacco Use Smoking status: Former Packs/day: 1.50 Years: 8.00 Pack years: 12 Types: Cigarettes Quit date: 04/20/2008 Years since quittin.0 Smokeless tobacco: Former Types: Chew Quit date: 12/06/2007 ENVIRONMENTAL HISTORY: Lives in a house Age of home: 160 years Heating: gas Woodburning fireplace in the home: yes Air conditioning: Central air Basement: Damp basement Gordo: Hardwood floor Dust mite controls: Dust mite controls are not in place. Pets in the home: 3 cats, 4 dogs Outdoor animals: 9 chickens Tobacco smoke: No exposure in the home. Physical Exam: GENERAL APPEARANCE:Well appearing, alert, in no acute distress, well-hydrated, well nourished. HEENT: NCAT. EYES: conjunctiva and sclera normal. EARS: External ears normal. Canals clear. TM's normal. NOSE/SINUS: Nares normal. Septum midline. Mucosa normal. No drainage or sinus tenderness. THROAT: no erythema NECK:neck supple, no adenopathy HEART:RRR with normal S1 and S2 ,no murmurs, no gallops, no rubs LUNGS: clear to auscultation bilaterally, no wheezes, rales or rhonchi EXTREMITIES:Extremities normal, No deformities, No skin discoloration, and No edema SKIN: Skin color, texture, turgor normal. No rashes or lesions. ALLERGY SKIN TESTS: Negative to penicillin and Pre-Pen on both prick and intradermal tests. Patient took a test dose of amoxicillin 250 mg by mouth and was monitored in the office for 30 minutes afterwards. The patient tolerated the amoxicillin without adverse reaction. ASSESSMENT/PLAN: 1.) History of allergy to penicillin and/or penicillin-type antibiotic: Allergy skin tests to penicillin were negative. The patient took a test dose of amoxicillin and tolerated this without adverse reaction. The patient is at low risk for a severe, immediate, IgE-mediated reaction to penicillin, amoxicillin and other penicillin-type antibiotics. Skin tests are unreliable for predicting delayed reactions. 2.) Probable seasonal allergic rhinitis: Patient declined the completion of allergy skin tests to inhalant allergens as his symptoms are relatively mild. Aggressive environmental controls. He may continue to take loratadine 10 mg once daily as needed. 3.) Discussed medication dosage, usage, side effects, and goals of treatment in detail. 4.) Follow-up in PRN - patient will return sooner should new symptoms or problems arise. Antoinette Lang MD documented in this encounter [facility] 05-21-2022 Nurse Note Pt states he was hoping to get tested for penicillin to see if truly allergic or not. Dentist suggested he see if truly allergic as he has been getting infections with tooth replacement. Had reaction as child, does not remember. Pt took claritin yesterday, only day he took it. documented in this encounter [facility] 03-24-2022 Miscellaneous Notes Patient notified of medications sent and lab order in. Radha Walker LPN Orders placed. Rx sent as requested to local pharmacy. Patient is willing to start statin please send to joshua hern[facility] Please file labs for 3 months Anabella Miller Ma ----- Message from Caty Vanegas MD sent at 03/21/2022 11:53 AM EST ----- Patient's cholesterol is very high with LDL >200. Recommend starting high intensity statin to lower cholesterol as well as his risk of heart attack and stroke. Most common side effect: muscle aches. If agreeable, will send rx to requested pharmacy and recheck in 3 months. Other labs unremarkable. documented in this encounter [facility] 03-20-2022 Miscellaneous Notes Rx sent as requested. Pended rx to joshua Miller Ma documented in this encounter [facility] 03-15-2022 History of Presen t illness Narrative Chief Complaint Patient presents with: Transition Of Care: From Beto Ortega HPI Glenn Link is a 41 year old male who presents here today for Above Complaints. Last OV 01/2021. Requesting physical. No other concerns today. HTN: Mr. Link indicates that he is feeling well and denies any symptoms referable to elevated blood pressure. Specifically denies headache, chest pain, palpitations, dyspnea, and peripheral edema. Patient denies any side effects of his medication(s) and is compliant with their regimen. He does not check BP's generally. Glenn works out regularly 7 times per week with walking and jogging 1 mile per day along with body weight exercises 3-4 days per week. He watches his diet for sodium, low fat and low cholesterol most of the time. Last 3 Encounter BP Readings: Date: BP: 03/15/2022 132/84 12/15/2021 128/84 01/22/2021 128/74 Patient has unknown allergy to PCN. Told this from childhood. Would like testing to confirm this. Following up with Dermatology Dr. 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 Had 2 moles removed which were reportedly benign. PHQ-2 / Depression screen He in the past two weeks denies having felt down, depressed, hopeless or with little interest or pleasure in doing things. Agreeable to flu shot and Tdap booster today. Past medical history, appointments, medications, allergies reviewed. Previous Medical History PAST MEDICAL HISTORY Diagnosis Date Hypertension Mixed hyperlipidemia 01/22/2021 Overweight (BMI 25.0-29.9) Seasonal allergies spring Previous Surgical History PAST SURGICAL HISTORY Procedure Laterality Date EXTRACTION, ERUPTED TOOTH OR EXPOSED ROOT (ELEVATION AND/OR FORCEPS REMOVAL) 2000 FOOT LEFT OP SURGERY Left 2015 Dr. Miranda. Cyst removal Family History FAMILY HISTORY Problem Relation Age of Onset No Known Problems Mother Diabetes Father Hypertension Father Coronary Artery Disease Father 65 [place] Heart Attack Father No Known Problems Brother No Known Problems Brother No Known Problems Maternal Grandmother Hypertension Paternal Grandmother Heart Paternal Grandmother [place] x 6; CABG, stents Cancer Paternal Grandfather Leukemia No Known Problems Daughter No Known Problems Daughter No Known Problems Daughter No Known Problems Son Seizures Maternal Uncle Patient Allergies ALLERGIES Allergen Reactions Dotarem [Gadoterate* Hives Mri contrast Penicillins Current Medications Current Outpatient Medications on File Prior to Visit Medication Sig lisinopril-hydroCHLOROthiazide (PRINZIDE, ZESTORETIC) 20-25 mg per tablet Take 1 tablet by mouth every morning. No current facility-administered medications on file prior to visit. Social History Social History Tobacco Use Smoking status: Former Packs/day: 1.50 Years: 8.00 Pack years: 12.00 Types: Cigarettes Quit date: 04/20/2008 Years since quittin.9 Smokeless tobacco: Former Types: Chew Quit date: 12/06/2007 Vaping Use Vaping Use: Never used Substance Use Topics Alcohol use: Yes Alcohol/week: 7.5 - 12.5 standard drinks Types: 3 - 5 Cans of Beer (12oz) per week Comment: occasionally Drug use: No Review of Symptoms REVIEW OF SYSTEMS GENERAL: No weight loss, malaise or fevers HEENT: Negative for frequent or significant headaches, No changes in hearing or vision, no nose bleeds or other nasal problems NECK: Negative for lumps, goiter, pain and significant neck swelling RESPIRATORY: Negative for cough, hemoptysis, wheezing, COPD, dyspnea or shortness of breath CARDIOVASCULAR: Negative for chest pain, leg swelling, hypertension, CHF or palpitations GI: No nausea, vomiting, or diarrhea : No history of dysuria, frequency or incontinence MUSCULOSKELETAL: Negative for joint pain or swelling, back pain or muscle pain SKIN: Negative for lesions, rash, and itching NEURO: No history of headaches, syncope, paralysis, seizures or tremors EXAM: BP 132/84 Pulse 76 Resp 16 Ht 181.2 cm (5' 11.34) Wt 97.2 kg (214 lb 3.2 oz) SpO2 97% BMI 29.59 kg/m General Appearance: Well appearing, alert, in no acute distress, well-hydrated, well nourished.. Skin: Skin color, texture, turgor normal, no suspicious rashes or lesions. Head: Normocephalic, no masses, lesions, tenderness or abnormalities. Eyes: Anicteric sclera. Pupils are equally round and reactive to light. Extraocular movements are intact. . Ears: External ears normal, canals clear. Oropharynx: Lips, mucosa, and tongue normal, teeth and gums normal, oropharynx normal. Neck: Supple, no adenopathy; thyroid symmetric, normal size, no bruits. Lungs: Lungs clear to auscultation. No wheezing, rhonchi, rales.. Heart: RRR without murmur, gallop, or rubs. No ectopy. Abdomen: Normal abdominal exam, Abdomen soft, non-tender. Bowel sounds normal. No masses, organomegaly. Extremities: No deformities, edema, skin discoloration, clubbing or cyanosis. Good capillary refill. Health Maintenance List HEPATITIS B(1 of 3 - 3-dose series) Never done DTAP,TDAP,TD(8 - Td or Tdap) due on 01/10/2018 DEPRESSION ASSESSMENT Never done COVID-19 VACCINE(4 - Booster for Pfizer series) due on 06/27/2021 INFLUENZA(1) due on 12/19/2021 ANNUAL PCP TEAM CHRONIC DISEASE VISIT due on 01/22/2022 BP CONTROLLED (<130/80) due on 01/22/2022 LIPID SCREEN due on 01/22/2026 HEPATITIS C SCREENING Completed HIV SCREENING Discontinued Data reviewed Component Latest Ref Rng & Units 01/22/2021 Protein, Total 6.3 - 8.0 g/dL 7.3 Albumin 3.9 - 4.9 g/dL 4.6 Calcium 8.5 - 10.2 mg/dL 9.8 Bilirubin, Total 0.2 - 1.3 mg/dL 0.2 Alkaline Phosphatase 38 - 113 U/L 42 AST 14 - 40 U/L 33 Glucose 74 - 99 mg/dL 96 BUN 9 - 24 mg/dL 10 Creatinine 0.73 - 1.22 mg/dL 0.85 Sodium 136 - 144 mmol/L 138 Potassium 3.7 - 5.1 mmol/L 4.2 Chloride 97 - 105 mmol/L 103 CO2 22 - 30 mmol/L 24 Anion Gap 9 - 18 mmol/L 11 ALT 10 - 54 U/L 17 eGFR- >60 eGFR-All Other Races . >60 Cholesterol, Total <200 mg/dL 253 (H) Triglyceride <150 mg/dL 286 (H) HDL Cholesterol >39 mg/dL 38 (L) LDL Cholesterol <100 mg/dL 158 (H) Non HDL Cholesterol <130 mg/dL 215 (H) Fasting Time hrs 12 VLDL Cholesterol <30 mg/dL 57 (H) TC:HDL Ratio <5.10 6.66 (H) LDL:HDL Ratio <2.54 4.16 (H) Hep C Antibody IA Negative Negative ASSESSMENT/PLAN: 1. Encounter for medical examination to establish care - ICD9: V70.9, ICD10: Z00.00 (primary diagnosis) - Counseled on healthy diet and regular exercise - Discussed need for and benefit of weight loss. BMI 29.59 kg/(m^2) - Counseled on limiting alcohol intake to 2 drinks per day - Depression screening tool completed and reviewed with patient. Based on score and interview, patient is not at risk for depression and recommended no further intervention at this time. - Follow up for annual exam in one year - CBC - COMP METABOLIC PANEL - LIPID PANEL BASIC 2. Essential hypertension - ICD9: 401.9, ICD10: I10 - good control - Continue current medication(s) - Encouraged dietary sodium restriction/DASH diet - Recommended regular aerobic exercise. - Reviewed risks of HTN and principles of treatment - Goal of BP <140/90 - LISINOPRIL 20 MG-HYDROCHLOROTHIAZIDE 25 MG TABLET 3. Mixed hyperlipidemia - ICD9: 272.2, ICD10: E78.2 - to be determined upon return of lab results - Encouraged following a low fat, low cholesterol diet. - Discussed the benefits of regular aerobic exercise and weight loss. 4. Penicillin allergy - ICD9: V14.0, ICD10: Z88.0 Referral for further testing as requested. - CONSULT TO ALLERGY/IMMUNOLOGY 5. Overweight (BMI 25.0-29.9) - ICD9: 278.02, ICD10: E66.3 Weight increasing - Behavioral intervention 6. Numerous skin moles - ICD9: 216.9, ICD10: D22.9 F/u with derm for yearly skin checks. 7. Hair loss - ICD9: 704.00, ICD10: L65.9 Continue finasteride and minoxidil. F/u with dermatology. 8. Need for influenza vaccination - ICD9: V04.81, ICD10: Z23 - INFLUENZA VACCINE QUADRIVALENT 6 MO - 64 YRS IM 9. Encounter for immunization - ICD9: V03.89, ICD10: Z23 - TDAP VACCINE AGE 7+ IM Caty Vanegas MD documented in this encounter [facility] 12-15-2021 History of Presen t illness Narrative CC: Patient presents with: Cough: Cough, ST x 2 weeks HPI: Glenn Link is a 40 year old male who presents to the office with complaint of cough, nonproductive and sore throat for 2 weeks. Symptoms are staying the same. Associated symptoms includes sore throat. Denies fever, ear pain, nausea, vomiting , and diarrhea. Treatments tried include nothing so far. with no relief of symptoms. Sick contacts: unknown. History of asthma, frequent episodes of bronchitis, chronic bronchitis, bronchiectasis or COPD: No Smoker: No Seasonal/environmental allergies: No The ROS is otherwise negative. The patient's pmh, medications, allergies, and past visits are reviewed. PHYSICAL EXAM: BP 128/84 Pulse 71 Temp 36.4 C (97.6 F) (Tympanic) Resp 16 Wt 95.4 kg (210 lb 6.4 oz) SpO2 97% BMI 28.94 kg/m General appearance: alert, cooperative, pleasant, in no acute distress Head: Normocephalic Eyes: EOM's intact, conjunctiva pink and moist, no icterus, sclera white, non-injected Ears: Right ear: External ear/canal- Normal, TM - clear with good landmarks. Left ear: External ear/canal- Normal, TM - clear with good landmarks Oropharynx:moderate erythema, without exudates present Heart: Negative. RRR without obvious murmur, gallop, or rubs. No ectopy. Lungs: clear to auscultation, without rales or wheeze, good air exchange PAST MEDICAL HISTORY Diagnosis Date Hypertension Mixed hyperlipidemia 01/22/2021 Seasonal allergies spring PAST SURGICAL HISTORY Procedure Laterality Date EXTRACTION, ERUPTED TOOTH OR EXPOSED ROOT (ELEVATION AND/OR FORCEPS REMOVAL) 2000 FOOT LEFT OP SURGERY Left 2014 Dr. Miranda ALLERGIES Dotarem [Gadoterate Meglumine] and Penicillins MEDICATIONS lisinopril-hydroCHLOROthiazide (PRINZIDE, ZESTORETIC) 20-25 mg per tablet Take 1 tablet by mouth every morning. FAMILY HISTORY Problem Relation Age of Onset No Known Problems Mother Diabetes Father Hypertension Father Coronary Artery Disease Father [place] Heart Attack Father No Known Problems Brother No Known Problems Brother Hypertension Paternal Grandmother Heart Paternal Grandmother [place] x 6; CABG, stents Cancer Paternal Grandfather Leukemia Seizures Maternal Uncle No Known Problems Son No Known Problems Daughter No Known Problems Daughter No Known Problems Daughter Social History Tobacco Use Smoking status: Former Packs/day: 1.50 Years: 8.00 Pack years: 12.00 Types: Cigarettes Quit date: 04/20/2008 Years since quittin.6 Smokeless tobacco: Former Types: Chew Quit date: 12/06/2007 Vaping Use Vaping Use: Never used Substance Use Topics Alcohol use: Yes Alcohol/week: 7.5 - 12.5 standard drinks Types: 3 - 5 Cans of Beer (12oz) per week Comment: occasionally Drug use: No ASSESSMENT/PLAN: 1. Sore throat - ICD9: 462, ICD10: J02.9 - STREP A MOLECULAR (POC) - negative Prescription instructions reviewed with patient as applicable. Potential red flag symptoms discussed with the patient. Reviewed appropriate action plan to take if red flag symptoms occur. Patient agreeable to treatment plan. Prednisone daily for 5 days. If mono is negative or symptoms worsen while waiting for results then follow up for further testing with PCP. Brea Saucedo APRN.SIERRA documented in this encounter [facility] 04-08-2017 History of Past i llness Narrative Problem Noted Date Resolved Date Well adult exam 04/08/2017 03/15/2022 Dyslipidemia 04/08/2017 03/15/2022 Foot mass 12/29/2014 01/25/2015 Fertility testing 06/21/2009 12/29/2014 BENIGN HYPERTENSION 01/11/2008 12/29/2014 documented as of this encounter (statuses as of 03/15/2022) [facility] History of Past illness Narrative* Problem Noted Date Resolved Date Well adult exam 04/08/2017 03/15/2022 Dyslipidemia 04/08/2017 03/15/2022 Foot mass 12/29/2014 01/25/2015 Fertility testing 06/21/2009 12/29/2014 BENIGN HYPERTENSION 01/11/2008 12/29/2014 documented as of this encounter (statuses as of 03/20/2022) [facility] History of Past illness Narrative* Problem Noted Date Resolved Date Well adult exam 04/08/2017 03/15/2022 Dyslipidemia 04/08/2017 03/15/2022 Foot mass 12/29/2014 01/25/2015 Fertility testing 06/21/2009 12/29/2014 BENIGN HYPERTENSION 01/11/2008 12/29/2014 documented as of this encounter (statuses as of 03/24/2022) [facility] History of Past illness Narrative* Problem Noted Date Resolved Date Well adult exam 04/08/2017 03/15/2022 Dyslipidemia 04/08/2017 03/15/2022 Foot mass 12/29/2014 01/25/2015 Fertility testing 06/21/2009 12/29/2014 BENIGN HYPERTENSION 01/11/2008 12/29/2014 documented as of this encounter (statuses as of 05/23/2022) [facility] of Past illness Narrative* Problem Noted Date Diagnosed Date Resolved Date Well adult exam 04/08/2017 03/15/2022 Dyslipidemia 04/08/2017 03/15/2022 Foot mass 12/29/2014 01/25/2015 Fertility testing 06/21/2009 12/29/2014 BENIGN HYPERTENSION 01/11/2008 12/30/19 15 documented as of this encounter (statuses as of 02/13/2023) [facility] History of Past illness Narrative* Problem Noted Date Diagnosed Date Resolved Date Well adult exam 04/08/2017 03/15/2022 Dyslipidemia 04/08/2017 03/15/2022 Foot mass 12/29/2014 01/25/2015 Fertility testing 06/21/2009 12/29/2014 BENIGN HYPERTENSION 01/11/2008 12/30/19 15 documented as of this encounter (statuses as of 02/17/2023) [facility] History of Past illness Narrative* Problem Noted Date Diagnosed Date Resolved Date Well adult exam 04/08/2017 03/15/2022 Dyslipidemia 04/08/2017 03/15/2022 Foot mass 12/29/2014 01/25/2015 Fertility testing 06/21/2009 12/29/2014 BENIGN HYPERTENSION 01/11/2008 12/30/19 15 documented as of this encounter (statuses as of 03/06/2023) [facility] History of Past illness Narrative* Problem Noted Date Resolved Date Foot mass 12/29/2014 01/25/2015 Fertility testing 06/21/2009 12/29/2014 BENIGN HYPERTENSION 01/11/2008 12/29/2014 documented as of this encounter (statuses as of 12/15/2021) [facility] note* Diagnosis Sore throat- Primary Acute pharyngitis [facility] Diagnosis Encounter for medical examination to establish care- Primary Essential hypertension Unspecified essential hypertension Mixed hyperlipidemia Penicillin allergy Personal history of allergy to penicillin Overweight (BMI 25.0-29.9) Overweight Numerous skin moles Hair loss Alopecia, unspecified Need for influenza vaccination Need for prophylactic vaccination and inoculation against influenza Encounter for immunization Need for other specified prophylactic vaccination against single bacterial disease [facility] Diagnosis Essential hypertension Unspecified essential hypertension [facility] Diagnosis Mixed hyperlipidemia- Primary [facility] Diagnosis [id number] adverse effect of medication, initial encounter- Primary Penicillin allergy Personal history of allergy to penicillin [facility]* Diagnosis Mass on back- Primary Localized superficial swelling, mass, or lump Localized swelling, mass and lump, trunk Contrast media allergy Allergy to radiographic dye [facility] noteNo assessment information availableWCleveland Clinic Foundation Work Phone: Evaluation note* Diagnosis 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 [facility]* Diagnosis Acute cough- Primary Bacterial pneumonia Bacterial pneumonia, unspecified Acute cough documented in this encounter [facility] note* Diagnosis Essential hypertension Unspecified essential hypertension documented in this encounter [facility] note* Diagnosis Essential hypertension Unspecified essential hypertension documented in this encounter [facility] note* Diagnosis Essential hypertension- Primary Unspecified essential hypertension documented in this encounter [facility] note* Diagnosis Acute cough documented in this encounter [facility] note* Diagnosis Acute midline low back pain with left-sided sciatica documented in this encounter [facility] note* Diagnosis Dysfunction of left eustachian tube- Primary Dysfunction of Eustachian tube documented in this encounter [facility] note* Diagnosis Essential hypertension Unspecified essential hypertension documented in this encounter [facility] note* Diagnosis Annual physical exam- Primary Routine general medical examination at a health care facility Essential hypertension Unspecified essential hypertension Mixed hyperlipidemia documented in this encounter [facility] note* Diagnosis Essential hypertension Unspecified essential hypertension documented in this encounter [facility] for referral (narrative)* Diagnostic Procedure Only (Routine) - Closed Specialty Diagnoses / Procedures Referred By Amyac t Referred To Contact XR IMAGING Diagnoses Acute midline low back pain with left-sided sciatica Procedures XR LUMBAR GENERAL 3V AP/LAT/L5-S1 RADEX SPINE LUMBOSACRAL 2/3 VIEWS Cinthia Blas APRN.WEATHERIZATION AND HOUSING INSPECTOR [address] [place] [address] [place] [address] Referral ID Status Reason Start Date Expiration Date V isits Requested Visits Authorized [id number] Closed Auto-Generate d Referral 04/17/2023 05/16/2024 1 1 [facility] for visit Narrative* Diagnostic Procedure Only (Routine) - Closed Specialty Diagnoses / Procedures Referred By Contac t Referred To Contact XR IMAGING Diagnoses Acute midline low back pain with left-sided sciatica Procedures XR LUMBAR GENERAL 3V AP/LAT/L5-S1 RADEX SPINE LUMBOSACRAL 2/3 VIEWS Cinthia Blas APRN.CNP [address] [place] [address] [place] [address] Referral ID Status Reason Start Date Expiration Date V isits Requested Visits Authorized [id number] Closed Auto-Generate d Referral 04/17/2023 05/16/2024 1 1 [facility] Reason for Referral Specialty Diagnoses / Procedures Referred By Lynnette soto Referred To Contact Allergy Diagnoses Penicillin allergy Procedures CONSULT TO ALLERGY/IMMUNOLOGY OFFICE/OUTPATIENT [facility] 60-74 MINUTES Caty Vanegas MD [address] [place] [address] Referral ID Status Reason Start Date Expiration Date Visits Requested Visits Authorized [id number] Authorized PCP Requested Referral 2 03/15/2023 1 1 Specialty Diagnoses / Procedures Referred By Lynnette soto Referred To Contact MR IMAGING Diagnoses Mass on back Localized swelling, mass and lump, trunk Procedures MRI CHEST WALL/RIB WO/W IVCON LEFT MRI CHEST W/O & W/CONTRAST MATERIAL Caty Vanegas MD [address] [place] [address] Mr Imaging [id number] Referral ID Status Reason Start Date Expiration Date Visits Requested Visits Authorized [id number] Authorized Auto-Generat ed Referral 3 08/12/2023 1 1 Medications Administered Section Inactive Administered Medications - up to 3 most recent administrations Medication Order MAR Action Action Date Dose Rate Site amoxicillin 250 mg oral liquid (AMOXIL) 250 mg, ORAL, ONCE, 1 dose, On Thu05/21/22 at 1030, SHAKE WELL. REFRIGERATE., Please document the antimicrobial indication: Empiric Given 05/21/2022 9:55 AM EST 250 mg Chief Complaint and Reason for Visit Chief Complaint MASS ON BACK SWELLIN G Summary Purpose Family History No Family History Records Found Advance Directives No Advanced Directives Records FoundNo Advanced Directives Records FoundNo Advanced Directives Records FoundNo Advanced Directives Records Found Additional Source Comments Source Comments (unrecognize d section and content) In the event this informatio n is protected by the Federal Confidentiality of Alcohol and Drug Abuse Patient Records regulations: The Federal rules restrict any use of the information to criminally investigate or prosecute any alcohol or drug abuse patient.[facility] the event this information is protected by the Federal Confidentiality of Alcohol and Drug Abuse Patient Records regulations: The Federal rules restrict any use of the information to criminally investigate or prosecute any alcohol or drug abuse patient.[facility] CenterIn the event this information is protected by the Federal Confidentiality of Alcohol and Drug Abuse Patient Records regulations: The Federal rules restrict any use of the information to criminally investigate or prosecute any alcohol or drug abuse patient.[facility] CenterIn the event this information is protected by the Federal Confidentiality of Alcohol and Drug Abuse Patient Records regulations: The Federal rules restrict any use of the information to criminally investigate or prosecute any alcohol or drug abuse patient.[facility] CenterIn the event this information is protected by the Federal Confidentiality of Alcohol and Drug Abuse Patient Records regulations: The Federal rules restrict any use of the information to criminally investigate or prosecute any alcohol or drug abuse patient.[facility] CenterIn the event this information is protected by the Federal Confidentiality of Alcohol and Drug Abuse Patient Records regulations: The Federal rules restrict any use of the information to criminally investigate or prosecute any alcohol or drug abuse patient.[facility] CenterIn the event this information is protected by the Federal Confidentiality of Alcohol and Drug Abuse Patient Records regulations: The Federal rules restrict any use of the information to criminally investigate or prosecute any alcohol or drug abuse patient.[facility] CenterIn the event this information is protected by the Federal Confidentiality of Alcohol and Drug Abuse Patient Records regulations: The Federal rules restrict any use of the information to criminally investigate or prosecute any alcohol or drug abuse patient.[facility] CenterIn the event this information is protected by the Federal Confidentiality of Alcohol and Drug Abuse Patient Records regulations: The Federal rules restrict any use of the information to criminally investigate or prosecute any alcohol or drug abuse patient.[facility] CenterIn the event this information is protected by the Federal Confidentiality of Alcohol and Drug Abuse Patient Records regulations: The Federal rules restrict any use of the information to criminally investigate or prosecute any alcohol or drug abuse patient.[facility] CenterIn the event this information is protected by the Federal Confidentiality of Alcohol and Drug Abuse Patient Records regulations: The Federal rules restrict any use of the information to criminally investigate or prosecute any alcohol or drug abuse patient.[facility] CenterIn the event this information is protected by the Federal Confidentiality of Alcohol and Drug Abuse Patient Records regulations: The Federal rules restrict any use of the information to criminally investigate or prosecute any alcohol or drug abuse patient.[facility] CenterIn the event this information is protected by the Federal Confidentiality of Alcohol and Drug Abuse Patient Records regulations: The Federal rules restrict any use of the information to criminally investigate or prosecute any alcohol or drug abuse patient.[facility] CenterIn the event this information is protected by the Federal Confidentiality of Alcohol and Drug Abuse Patient Records regulations: The Federal rules restrict any use of the information to criminally investigate or prosecute any alcohol or drug abuse patient.[facility] CenterIn the event this information is protected by the Federal Confidentiality of Alcohol and Drug Abuse Patient Records regulations: The Federal rules restrict any use of the information to criminally investigate or prosecute any alcohol or drug abuse patient.[facility] CenterIn the event this information is protected by the Federal Confidentiality of Alcohol and Drug Abuse Patient Records regulations: The Federal rules restrict any use of the information to criminally investigate or prosecute any alcohol or drug abuse patient.[facility] CenterIn the event this information is protected by the Federal Confidentiality of Alcohol and Drug Abuse Patient Records regulations: The Federal rules restrict any use of the information to criminally investigate or prosecute any alcohol or drug abuse patient.[facility] CenterIn the event this information is protected by the Federal Confidentiality of Alcohol and Drug Abuse Patient Records regulations: The Federal rules restrict any use of the information to criminally investigate or prosecute any alcohol or drug abuse patient.[facility] CenterIn the event this information is protected by the Federal Confidentiality of Alcohol and Drug Abuse Patient Records regulations: The Federal rules restrict any use of the information to criminally investigate or prosecute any alcohol or drug abuse patient.[facility] CenterIn the event this information is protected by the Federal Confidentiality of Alcohol and Drug Abuse Patient Records regulations: The Federal rules restrict any use of the information to criminally investigate or prosecute any alcohol or drug abuse patient.[facility] CenterIn the event this information is protected by the Federal Confidentiality of Alcohol and Drug Abuse Patient Records regulations: The Federal rules restrict any use of the information to criminally investigate or prosecute any alcohol or drug abuse patient.[facility] CenterIn the event this information is protected by the Federal Confidentiality of Alcohol and Drug Abuse Patient Records regulations: The Federal rules restrict any use of the information to criminally investigate or prosecute any alcohol or drug abuse patient.[facility] CenterIn the event this information is protected by the Federal Confidentiality of Alcohol and Drug Abuse Patient Records regulations: The Federal rules restrict any use of the information to criminally investigate or prosecute any alcohol or drug abuse patient.[facility] CenterIn the event this information is protected by the Federal Confidentiality of Alcohol and Drug Abuse Patient Records regulations: The Federal rules restrict any use of the information to criminally investigate or prosecute any alcohol or drug abuse patient.[facility] CenterIn the event this information is protected by the Federal Confidentiality of Alcohol and Drug Abuse Patient Records regulations: The Federal rules restrict any use of the information to criminally investigate or prosecute any alcohol or drug abuse patient.[facility] Reason for Visit (unrecogniz ed section and content) Reason Comments Cough Cough, ST x 2 weeks Reason Onset Date Comments Transition Of Care From Beto Erich Immunizations 03/15/2022 Flu vaccination Reason Comments Results Reason Comments New Patient Evaluation Specialty Diagnoses / Procedures Referred By Contac t Referred To Contact Allergy / ALLERGY Diagnoses Penicillin allergy Procedures CONSULT TO ALLERGY/IMMUNOLOGY OFFICE/OUTPATIENT [facility] 60-74 MINUTES Caty Vanegas MD [address] [place] [address] [facility] [address] [address] Referral ID Status Reason Start Date Expiration Date V isits Requested Visits Authorized [id number] Closed PCP Requested Referral 03/15/2022 03/15/2023 1 1 Reason Comments Derm Problem Possible cyst on ana k x 2 months. Denies pain or redness. Reason Comments Outside Labs-[facility] Ordered Reason Comments Consult Consultation upper b ack/left arm area. Reason Comments Cough Chest congestion, fe darren, neck pain x last night, pneumonia exposure Reason Onset Date Comments Refill Request 11/07/2023 Reason Comments Follow Up BP - out of BP medic ation x 2 weeks Reason Comments Blood Pressure recheck Reason Comments Ear Problem L ear muffled hearin g and crackling, minimal pain x1 week Reason Onset Date Comments Refill Request 02/20/2024 Reason Comments 05/20/2023 EXCISION INTRAMUSCULAR LIPOMA LEFT FLANK ROBERTSON Reason Onset Date Comments Refill Request 06/01/2024 Reason Comments Physical Reason Onset Date Comments Refill Request 11/07/2024 Care Teams (unrecognized sec tion and content) Dental Appliance Mechanic Relationship Specialty Start Date End Date Ajay Ortega APRN.WEATHERIZATION AND HOUSING INSPECTOR, DNP [address] [place] [address] PCP - General Family Practice 04/18/19 Dental Appliance Mechanic Relationship Specialty Start Date End Date Caty Vanegas MD [address] [place] [address] PCP - General Family Medicine 03/14/22 Dental Appliance Mechanic Relationship Specialty Start Date End Date Caty Vanegas MD [address] [place] [address] PCP - General Family Medicine 03/14/22 Dental Appliance Mechanic Relationship Specialty Start Date End Date Caty Vanegas MD [address] [place] [address] PCP - General Family Medicine 03/14/22 Dental Appliance Mechanic Relationship Specialty Start Date End Date Caty Vanegas MD [address] [place] [address] PCP - General Family Medicine 03/14/22 Dental Appliance Mechanic Relationship Specialty Start Date End Date Caty Vanegas MD [address] [place] [address] PCP - General Family Medicine 03/14/22 Dental Appliance Mechanic Relationship Specialty Start Date End Date Caty Vanegas MD [address] [place] [address] PCP - General Family Medicine 03/14/22 Team Status: Active Member Role Status Dates No Primary Care Physician Family Provider Active Ajay Ortega HAND BOX COVERER, HAND BOX COVERER-C Primary Care Provider Active Team Status: Inactive Member Role Status Dates Ajay Ortega HAND BOX COVERER, HAND BOX COVERER-C Primary Care Provider Active Dr. Damián Vanegas MD Attending Provider, Referr ing Provider Active Dental Appliance Mechanic Relationship Specialty Start Date End Date Caty Vanegas MD [address] [facility] [place] [address] PCP - General Family Medicine 03/14/22 Dental Appliance Mechanic Relationship Specialty Start Date End Date Caty Vanegas MD [address] [facility] [place] [address] PCP - General Family Medicine 03/14/22 Dental Appliance Mechanic Relationship Specialty Start Date End Date Caty Vanegas MD [address] [facility] [place] [address] PCP - General Family Medicine 03/14/22 Dental Appliance Mechanic Relationship Specialty Start Date End Date Caty Vanegas MD [address] [facility] [place] [address] PCP - General Family Medicine 03/14/22 Dental Appliance Mechanic Relationship Specialty Start Date End Date Caty Vanegas MD [address] [facility] [place] [address] PCP - General Family Medicine 03/14/22 Dental Appliance Mechanic Relationship Specialty Start Date End Date Caty Vanegas MD [address] [facility] [place] [address] PCP - General Family Medicine 03/14/22 Dental Appliance Mechanic Relationship Specialty Start Date End Date Caty Vanegas MD [address] [facility] [place] [address] PCP - General Family Medicine 03/14/22 Dental Appliance Mechanic Relationship Specialty Start Date End Date Caty Vanegas MD [address] [facility] [place] [address] PCP - General Family Medicine 03/14/22 Dental Appliance Mechanic Relationship Specialty Start Date End Date Caty Vanegsa MD [address] [place] [address] PCP - General Family Medicine 03/14/22 Dental Appliance Mechanic Relationship Specialty Start Date End Date Caty Vanegas MD [address] [place] [address] PCP - General Family Medicine 03/14/22 Podlogar, VLADIMIR NunnN.WEATHERIZATION AND HOUSING INSPECTOR [address] [place] [address] [facility] 03/26/24 Dental Appliance Mechanic Relationship Specialty Start Date End Date Caty Vanegas MD [address] [place] [address] PCP - General Family Medicine 03/14/22 Podlogar, Arline, HARDWOOD FLOOR INSTALLATION HELPER.WEATHERIZATION AND HOUSING INSPECTOR [address] [place] [address] Zipper Setter Lockstitch Family Medicine 03/26/24 Dental Appliance Mechanic Relationship Specialty Start Date End Date Caty Vanegas MD [address] [place] [address] PCP - General Family Medicine 03/14/22 Podlogar, Arline HARDWOOD FLOOR INSTALLATION HELPER.WEATHERIZATION AND HOUSING INSPECTOR [address] [place] [address] Zipper Setter Lockstitch Family Medicine 03/26/24 Dental Appliance Mechanic Relationship Specialty Start Date End Date Caty Vanegas MD [address] [facility] [place] [address] PCP - General Family Medicine 03/14/22 PodlogarArline APRN.WEATHERIZATION AND HOUSING INSPECTOR [address] [facility] [place] [address] Zipper Setter Lockstitch Family Medicine 03/26/24 Shari Ramos APRN.WEATHERIZATION AND HOUSING INSPECTOR [address] [place] [address] [facility] 09/29/24 Dental Appliance Mechanic Relationship Specialty Start Date End Date Caty Vanegas MD [address] [facility] [place] [address] PCP - General Family Medicine 03/14/22 PodlogarArline APRN.WEATHERIZATION AND HOUSING INSPECTOR [address] [facility] [place] [address] [facility] 03/26/24 Shari Ramos APRN.WEATHERIZATION AND HOUSING INSPECTOR [address] [place] [address] [facility] 09/29/24 Dental Appliance Mechanic Relationship Specialty Start Date End Date Caty Vanegas MD [address] [facility] [place] [address] PCP - General Family Medicine 03/14/22 PodlogarArline APRN.WEATHERIZATION AND HOUSING INSPECTOR [address] [facility] [place] [address] Zipper Setter Lockstitch Family Medicine 03/26/24 Shari Ramos APRN.WEATHERIZATION AND HOUSING INSPECTOR [address] [place] [address] Zipper Setter Lockstitch Family Medicine 09/29/24 Goals (unrecognized section and content) Goals may be documented in a n alternate section (unrecognized sect ion and content) No Status Records FoundNo Status Records FoundNo Status Records FoundNo Status Records Found INFORMATION SOURCE (unrecogn ized section and content) DATE CREATED AUTHOR 05/14/2023 [facility] DATE CREATED AUTHOR AUTHOR'S ORGANIZ ATION 06/04/2023 [facility] DATE CREATED AUTHOR AUTHOR'S ORGANIZ ATION 02/21/2025 [facility] DATE CREATED AUTHOR AUTHOR'S ORGANIZ ATION 03/01/2025 [facility] FOR RECORDS PERTAINING TO PATIENTS WHO ARE OR HAVE BEEN ENROLLED IN A CHEMICAL DEPENDENCY/SUBSTANCEABUSE PROGRAM, SOME INFORMATION MAY BE OMITTED. This clinical summary was aggregated from multiple sources. Caution should be exercised in using it in the provision of clinical care. This summary normalizes information from multiple sources, and as a consequence, information in this document may materially change the coding, format and clinical context of patient data. In addition, data may be omitted in some cases. CLINICAL DECISIONS SHOULD BE BASED ON THE PRIMARY CLINICAL RECORDS. [employer] provides no warranty or guarantee of the accuracy or completeness of information in this document.
--- NOTE | 2025-03-10 06:31 | PCM.PRE.AN2 ---
ASA Classification* ASA Classification ASA Classification: 2 Assessment & Plan Anesthesia* Anesthesia Assessment Anesthesia Assessment: Discussed sedation and/or anesthesia options, risks, benefits, and alternatives with patient/parents/legal guardian/POA. Questions invited. The patient/parents/legal guardian/POA seems to understand and agrees to proceed with anesthesia plan. Reviewed the physical assessment, medical history, allergy history and patient home medications list prior to surgery/procedure/anesthetic and documented any changes. Performed airway and anesthesia risk assessments. Anesthesia Type Anesthesia Type: MAC Anesthesia Focused Assessment* Airway Assessment Mouth opens: >3 cm Mallampati Score: II Labs Anesthesia Preop lab: CBC CHEMISTRY COAG Pre-Assessment Diagnosis/Proposed Procedure Planned Operative Procedure(s): COLONOSCOPY Anesthesia History Anesthesia History - nutrient management specialist: Anesthesia History - nutrient management specialist Hx Hospitalization No 03/08/25 14:50 Any Problems With Anesthesia No 03/08/25 14:50 Cholinesterase deficiency No 03/08/25 14:50 You/Your Family Experience No 03/08/25 14:50 fever (hyperthermia) with Relationship Recent Exposure to Contagious Disease Does patient have nerve No 03/08/25 14:50 stimulator Patient instructed to have device shut off --Does patient have Pacemaker or ICD? When Was Last Pacemaker Check QUESTION #4 FULL TEXT: You/Your Family Experience fever (hyperthermia) with Anesthesia Last Oral Intake Last Oral intake: Last Oral Intake NPO since Meds taken in AM with sips of water? Meds patient instructed to take am of surgery PONV PONV - nutrient management specialist: PONV - nutrient management specialist Female No 03/08/25 14:50 HX of Motion Sickness No 03/08/25 14:50 HX of N/V After Surgery No 03/08/25 14:50 Non-Smoker Yes 03/08/25 14:50 Duration of Surgery greater No 03/08/25 14:50 than 60 minutes Number of Risk Factors 1 03/08/25 14:50 PONV Score Low Risk 03/08/25 14:50 Respiratory Assessment Respiratory Assessment - nutrient management specialist: Respiratory Tract Infection Hx - nutrient management specialist Hx Respiratory Tract Infection No 03/08/25 14:50 STOP Sleep Apnea STOP Sleep Apnea - nutrient management specialist: STOP Sleep Apnea - nutrient management specialist Hx Hypertension Yes: PER PT, CONTROLLED ON 03/08/25 14:50 MEDS Hx Sleep Apnea No 03/08/25 14:50 CPAP BIPAP Do you snore loudly (louder No 03/08/25 14:50 than talking or can be heard Do you often feel tired/ No 03/08/25 14:50 fatigued/ sleepy during daytime? Has anyone observed you stop No 03/08/25 14:50 breathing during sleep? STOP Results Negative 03/08/25 14:50 QUESTION #5 FULL TEXT : Do you snore loudly (louder than talking or can be heard through closed doors)? Tobacco Use History Tobacco Use History - nutrient management specialist: Tobacco Use History - nutrient management specialist Tobacco Use Smoking Status Former smoker 03/08/25 14:50 Hx Tobacco Use No 03/08/25 14:50 Years Smoking Packs Smoked per Day Smoking Cessation Date was No - quit smoking greater 03/08/25 14:50 within the last 15 years than 15 years ago Hx Smoking Cessation Date Hx Smoking Cessation Counseling Hematologic Medial History Hematologic Hx - nutrient management specialist: Hematologic Medical Hx - government guard Hx of Blood Transfusion No 03/08/25 14:50 Hx of Transfusion in last 3 No 03/08/25 14:50 Months Date of Last Transfusion (if within last 3 months) Ever experience any problems No 03/08/25 14:50 with transfusion(s)? Specify any problems Hx of Preganancy in last 3 N/A 03/08/25 14:50 Months Nurse Filling Out Transfusion MGRIFFITH 03/08/25 14:50 & Questions: Date: 03/08/25 03/08/25 14:50 Time: 14:52 03/08/25 14:50 Patient unable to answer at this time (ie. confused, unrespo /Reproduction History /Reproductive History - nutrient management specialist: /Reproductive Hx- nutrient management specialist Hx Now Gestational Age (in weeks): EDC: Hx Hx Para Hx Section SAB Does the father of the baby or his family experience fever w Father of the baby Malignant Hypertension history comment Active Medications Active Medications: Current Medications Generic Name Dose Route Start Last Admin Trade Name Freq PRN Reason Stop Dose Admin Lactated Ringer's 1,000 mls @ 15 mls/hr 03/10/25 06:30 IV .Q48H ROSAURA PFSH Medical History Alcohol use Former smoker Seasonal allergic conjunctivitis Mixed hyperlipidemia HTN (hypertension) LLQ abdominal pain Hair loss Home Medications ?Medication ?Instructions ?Recorded ?Last Taken ?Type lisinopril 20 1 tab PO QDAY 02/14/25 03/09/25 History mg-hydrochlorothiazide 25 mg tablet Allergy/AdvReac Type Severity Reaction Status Date / Time Iodinated Contrast Media Allergy Other Verified 03/10/25 06:30 (KEIRA) Family History Other Heart disease Surgical History History of surgery Social History Smoking Status: Former smoker quit date: 04/20/08 alcohol intake: current alcohol intake frequency: a few times a week Alcohol type: beer Review of Systems (Anesthesia) ROS Narrative System reviewed and no additional complaints, except as documented.
[2025-03-10] MEDS: Lactated Ringers 1,000 ML 15 ML IV (06:39)
--- NOTE | 2025-03-10 06:45 | HP.PCM_ITS ---
[facility] - General General Date of Service: 03/10/25 Chief Complaint: Colorectal screening HPI Narrative GLENN PERSAUD, is a 44 M who presents [Chief Complaint: Left lower quadrant pain Referred from primary care provider due to a dull burning left lower quadrant pain for 2 months. Pain is constant and will wake him up at night. Exacerbated by lifting his leg. It is not related to oral intake or when he needs to have a bowel movement. He denies any recent changes in his bowel habits. He has 1 bowel movement daily that is formed. Patient takes Metamucil daily. He denies blood in his stool or unintentional weight loss. No family history of colon cancer. No history of colonoscopy. He feels it may be musculoskeletal or a hernia. Ibuprofen and acetaminophen have helped in the past. Abdomen/Pelvis WITH Contrast Today R10.32 - Left lower quadrant pain ] [facility] Medical History Alcohol use Former smoker Seasonal allergic conjunctivitis Mixed hyperlipidemia HTN (hypertension) LLQ abdominal pain Hair loss Home Medications ?Medication ?Instructions ?Recorded ?Last Taken ?Type lisinopril 20 1 tab PO QDAY 02/14/2503/09 History mg-hydrochlorothiazide 25 mg tablet Allergy/AdvReac Type Severity Reaction Status Date / Time Iodinated Contrast Media Allergy Other Verified 03/10/25 06:30 (DYEE) Family History Other Heart disease Surgical History History of surgery Social History Smoking Status: Former smoker quit date: 04/20/08 alcohol intake: current alcohol intake frequency: a few times a week Alcohol type: beer ROS Constitutional Constitutional: Denies fatigue, fever(s), poor appetite, weight gain or weight loss Gastrointestinal Gastrointestinal: Denies belching, bloating, change in bowel habits, change in stool character, chewing difficulty, coffee ground emesis, constipation, cramping, diarrhea, dyspepsia, dysphagia, early satiety, excessive flatus, fecal incontinence, heartburn, hematemesis, hematochezia, hemorrhoids, loose stools, melena, nausea, odynophagia, rectal bleeding, tenesmus, vomiting or weight changes Vital Signs Vital Signs Vital Signs: 03/10/25 06:31 03/10/25 06:31 03/10/25 06:35 Temperature 97.2 F L Temperature Source Temporal Pulse Rate 60 Respiratory Rate 14 Respiratory Pattern Normal Blood Pressure 148/83 H Blood Pressure Mean 104 Blood Pressure Source Monitor Blood Pressure Position Semi-Fowlers Blood Pressure Location Right Arm Baseline BP 148/83 Pulse Ox 97 Oxygen Delivery Method Room Air Weight Weight: 201 lb 11.567 oz Body Mass Index (BMI) 27.3 Physical Exam Const alert, oriented x3, no apparent distress and healthy appearing General Appearance: cooperative GI normal to inspection, nondistended, normoactive bowel sounds, soft to palpation, non-tender and non-distended Percussion: normal to percussion Rectal Exam: deferred Assessment & Plan Assessment/Plan (1) LLQ abdominal pain: (2) Encounter for screening colonoscopy: PLAN: Assessment and Plan Assessment and Plan (1) LLQ abdominal pain: Status: Acute Plan: José Antonio is a 44-year-old male patient with past medical history of hypertension and hyperlipidemia here today for evaluation of left lower quadrant abdominal pain over the past 2 months. Pain is unrelated to oral intake or bowel movements. Some alleviation in his symptoms with NSAIDs or acetaminophen. Sitting or certain movements may exacerbate his pain. He denies any changes in his bowel habits, unintentional weight loss, blood in his stool or fever. He has no family history of colon cancer. Patient will undergo colonoscopy for evaluation of his left lower quadrant pain and for screening. I have also ordered a CT abdomen pelvis to rule out inflammation in his colon and/or a hernia. - Colonoscopy - CT abdomen pelvis - Continue fiber - Follow-up after testing Note: [employer] speech recognition wrapping machine tender software was used to create portions of this document. Sound-alike and misspelled words, as well as other wrapping machine tender errors may be contained in the documentation. Orders: Orders
--- NOTE | 2025-03-10 07:15 | COLBX_PTH ---
PATIENT: GLENN PERSAUD III LOC: EN U#:[id number] AGE/SX: 44/M ROOM: RE03/10/[address]: Dr. Kimo Mathews DO : 1980 BED: DIS: 03/10/2025 SPEC #: [id number] RECD: 03/10/25 10:36 STATUS: LAURITA JOY #: [id number] JUDE: 03/10/25 07:[address]: Kimo Mathews DEPT: SURGICAL PATHOLOGY RECD BY: Oracio Bella ENTERED: 03/10/25 13:49 SP TYPE: COLON BX OT DR: Dr. Damián Vanegas MD Tissues: A - Transverse colon B - Transverse colon C - Rectum, NOS Procedures: Surgery Specimen Level IV HEADER OPERATION: Colonoscopy, polypectomy with hot snare, clip application PRE-OP DIAGNOSIS: Left lower quadrant abdominal pain, encounter for screening colonoscopy TISSUE SUBMITTED: A- Transverse colon polyp, B- Transverse colon polyp #2, C- Rectal polyps x2 MICROSCOPIC DIAGNOSIS A. Colon, transverse, polypectomy: * Tubular adenoma B. Colon, transverse, polypectomy: * Colonic mucosa with focally dilated crypts C. Rectum, polypectomy: * Tubular adenoma MICROSCOPIC DESCRIPTION Slides are reviewed. GROSS DESCRIPTION A. Received in fixative is one container labeled with the patient's name and designated Transverse colon polyp. The specimen consists of multiple irregular fragments of campbell tissue that in aggregate measure 1.3 x 0.6 x 0.2 cm. The specimen is totally submitted in one cassette. B. Received in fixative is one container labeled with the patient's name and designated Transverse colon polyp #2. The specimen consists of one irregular fragment of campbell tissue that measures 0.2 cm, admixed with vegetable material.. The specimen is totally submitted in one cassette. C. Received in fixative is one container labeled with the patient's name and designated Rectal polyps x2. The specimen consists of multiple irregular fragments of campbell tissue that in aggregate measure 1.1 x 0.6 x 0.1 cm. The specimen is totally submitted in one cassette. PR 03/10/2025 CPT:45177m4
--- NOTE | 2025-03-10 08:17 | OP.COLON_ITS ---
Patient Name: Lewis Link Procedure Date: 03/10/2025 7:33 AM Date of : 1980 Age: 44 Procedure: Colonoscopy Indications: Screening for colorectal malignant neoplasm Providers: Kimo Mathews DO Referring MD: Damián Vanegas Medicines: Monitored Anesthesia Care Patient Profile: This is a 44 year old male. Refer to note in patient chart for documentation of history and physical. Last Colonoscopy: none. The patient's first colonoscopy is today. Complications: No immediate complications. Procedure: Pre-Anesthesia Assessment: - Prior to the procedure, a History and Physical was performed, and patient medications and allergies were reviewed. The patient is competent. The risks and benefits of the procedure and the sedation options and risks were discussed with the patient. All questions were answered and informed consent was obtained. Patient identification and proposed procedure were verified by the physician in the pre-procedure area. Mental Status Examination: alert and oriented. Airway Examination: normal oropharyngeal airway and neck mobility. Respiratory Examination: clear to auscultation. CV Examination: normal. Prophylactic Antibiotics: The patient does not require prophylactic antibiotics. Prior Anticoagulants: The patient has taken no anticoagulant or antiplatelet agents. ASA Grade Assessment: II - A patient with mild systemic disease. After reviewing the risks and benefits, the patient was deemed in satisfactory condition to undergo the procedure. The anesthesia plan was to use monitored anesthesia care (MAC). Immediately prior to administration of medications, the patient was re-assessed for adequacy to receive sedatives. The heart rate, respiratory rate, oxygen saturations, blood pressure, adequacy of pulmonary ventilation, and response to care were monitored throughout the procedure. The physical status of the patient was re-assessed after the procedure. After I obtained informed consent, the scope was passed under direct vision. Throughout the procedure, the patient's blood pressure, pulse, and oxygen saturations were monitored continuously. The Colonoscope was introduced through the anus and advanced to the cecum, identified by appendiceal orifice and ileocecal valve. The colonoscopy was performed without difficulty. The patient tolerated the procedure well. The quality of the bowel preparation was adequate. The ileocecal valve, appendiceal orifice, and rectum were photographed. Scope In: 7:40:02 AM Scope Withdrawal Time 0 hours 14 minutes 44 seconds Scope Out: 8:05:37 AM Total Procedure Duration Time 0 hours 25 minutes 35 seconds Findings: The perianal and digital rectal examinations were normal. Four sessile polyps were found in the rectum and transverse colon. The polyps were 10 mm in size. These polyps were removed with a hot snare. Resection and retrieval were complete. For location marking, one hemostatic clip was successfully placed. Clip chemistry lab instructor: [employer]. There was no bleeding at the end of the procedure. The exam was otherwise without abnormality on direct and retroflexion views. Impression: - Four 10 mm polyps in the rectum and in the transverse colon, removed with a hot snare. Resected and retrieved. Clip was placed. Clip chemistry lab instructor: [employer]. - The examination was otherwise normal on direct and retroflexion views. Recommendation: - Discharge patient to home. - Resume previous diet. - Continue present medications. - Await pathology results. - Repeat colonoscopy in 5 years for surveillance. Procedure Code(s): --- Professional --- 47988, Colonoscopy, flexible; with removal of tumor(s), polyp(s), or other lesion(s) by snare technique 04888, Unlisted procedure, rectum 33439, Unlisted procedure, colon CPT copyright 2021 [employer]. All rights reserved. The codes documented in this report are preliminary and upon awnings mechanic review may be revised to meet current compliance requirements. Kimo Mathews DO 03/10/2025 8:16:50 AM This report has been signed electronically. Number of Addenda: 0 Note Initiated On: 03/10/2025 7:33 AM
--- NOTE | 2025-03-10 08:17 | OP.PROVAT_ITS ---
03/10/2025 Damián Vanegas Re : Colonoscopy procedure for Lewis Barr Romina This procedure was performed on Monday, March 10, 2025. My impressions and recommendations are as follows: Impressions : - Four 10 mm polyps in the rectum and in the transverse colon, removed with a hot snare. Resected and retrieved. Clip was placed. Clip organizational research consultant: [employer]. - The examination was otherwise normal on direct and retroflexion views. Recommendations : - Discharge patient to home. - Resume previous diet. - Continue present medications. - Await pathology results. - Repeat colonoscopy in 5 years for surveillance. My findings are described in the full procedure note, which is enclosed. If I can be of further assistance, please feel free to contact me at . Sincerely, Kimo Mathews, 03/10/2025 8:16:50 AM This report has been signed electronically.
--- NOTE | 2025-03-10 08:17 | PCM.POST.ANE ---
Anesthesia: Postop Eval I Current Vital Signs Temperature: 97 F Pulse Rate: 62 Blood Pressure: 89/64 Respiratory Rate: 16 Pulse Ox: 97 Oxygen Delivery Method: Room Air Assessment Airway patent: Yes Spontaneous unlabored respirations: Yes Mental status: Asleep nausea: No Vomiting: No Anesthesia Complication: No Fluid Hydration Crystalloid volume administer (ml): 900 Total IV fluid infused: 900 Progress Note Anesthesia document: Postop Eval 1 completed: Yes
--- NOTE | 2025-03-10 12:14 | PCM.POSTANE2 ---
Anesthesia Postop Eval I Sum Postop Eval Completion status Anesthesia document: Postop Eval 1 completed: Yes Anesthesia Postop Eval I Summary Anesthesia Postop Eval I Summary: Anesthesia Postop Eval I: Assessment Summary Airway patent Yes 03/10/25 08:18 [email or web address] Spontaneous unlabored Yes 03/10/25 08:18 [email or web address] respirations Mental status Asleep 03/10/25 08:18 [email or web address] nausea No 03/10/25 08:18 [email or web address] Vomiting No 03/10/25 08:18 [email or web address] Anesthesia Postop Eval I: Fluid Summary Crystalloid volume administer 900 03/10/25 08:18 [email or web address] (ml) Colloids volume administered ( ml) Blood Product volume administered (ml) Total IV fluid infused 900 03/10/25 08:18 [email or web address] Anesthesia Postop Eval I: Summary Notes Anesthesia Complication No 03/10/25 08:18 [email or web address] Anesthesia Complication Comment: Post-operative progress note Anesthesia: Postop Eval II Evaluation Mental status: Awake Pain Level: 0 nausea: No Vomiting: No
== END 2025-03-10 09:04 | disposition home or self-care (01) ==
LOC: EN 06:15 → AC 06:16
PROVIDERS: PCP Family Medicine; Referring Provider Family Medicine; Visit Provider Internal Medicine Gastroenterology
PROC: 0DJD8ZZ Inspection of Lower Intestinal Tract, Via Natural or Artificial Opening Endoscopic (ICD-10-PCS; CPT 45378; principal; 2025-03-10 07:10)
DX: Z12.11 Encounter for screening for malignant neoplasm of colon (principal); I10 Essential (primary) hypertension; Z87.891 Personal history of nicotine dependence; E78.2 Mixed hyperlipidemia; Z79.899 Other long term (current) drug therapy; D12.3 Benign neoplasm of transverse colon; D12.8 Benign neoplasm of rectum; K63.5 Polyp of colon
CPT/HCPCS: 45385; 88305; J2405